=== PATIENT | female | born 1940 | race Caucasian/White ===

== ENCOUNTER 2017-04-04 02:50 | Emergency (ER) | payer MEDICARE ==
[2017-04-04 03:26] VITALS: BP 141/65; PULSE 77; RESP 18; TEMP 97
[2017-04-04 04:48] LABS: Aty Lym Flag Slight; CH 30.3; CHCM 34.3; HCT 42.1 % (34.0-46.0); HDW 2.53; HGB 14.3 gm/dL (11.4-16.0); MCH 30.1 pg (25.0-35.0); MCHC 33.9 g/dL (31.0-37.0); MCV 88.6 fL (80.0-100.0); Mean Platelet Volume 7.8; RBC 4.75 m/uL (3.80-5.40); RDW 13.1 % (11.5-15.5); WBC 12.4 k/uL (3.8-10.6); WBC (Perox) 11.99
[2017-04-04 04:51] LABS: Appearance,Urine Cloudy (Clear); Bacteria,Urine Rare /hpf; Bilirubin,Urine Negative (Negative); Glucose,Urine (UA) Negative (Negative); Ketones,Urine Negative (Negative); Leukocyte Esterase,Urine Large (Negative); Mucus,Urine Rare /hpf; Nitrite,Urine Negative (Negative); PH, Urine 5.5 (5.0-8.0); Particle Count 4088; Protein,Urine Negative (Negative); RBC,Urine 7 /hpf (0-5); Squamous Epithelial Cell,Urine 17 /hpf (0-4); UA Billing (MACRO vs. MICRO) MICRO; Urobilinogen,Urine <2.0 mg/dL (<2.0); WBC,Urine 32 /hpf (0-5)
[2017-04-04 05:05] LABS: Calcium 10.2 mg/dL (8.4-10.2); Potassium 4.1 mmol/L (3.5-5.1)
[2017-04-04] MEDS ORDERED: SULFAMETHOX-TMP 800-160MG 1 EACH TAB PO STA (07:10)
--- NOTE | 2017-04-04 07:11 | ED ---
General Adult HPI - General Chief complaint: Urogenital Stated complaint: unable to urinate Time Seen by Provider: 04/04/17 04:07 Source: patient Mode of arrival: ambulatory Limitations: no limitations - Related Data Previous Rx's Medication Instructions Recorded Sulfamethox-Tmp 800-160Mg [Bactrim 1 each PO Q12HR #14 tab 04/04/17 Ds] Allergies Allergy/AdvReac Type Severity Reaction Status Date / Time Penicillins Allergy Unknown Verified 04/04/17 03:22 Review of Systems ROS Statement: Those systems with pertinent positive or pertinent negative responses have been documented in the HPI. ROS Other: All systems not noted in ROS Statement are negative. Past Medical History Past Medical History: Hypertension History of Any Multi-Drug Resistant Organisms: None Reported Past Surgical History: Hysterectomy Past Psychological History: No Psychological Hx Reported Smoking Status: Never smoker Past Alcohol Use History: None Reported Past Drug Use History: None Reported General Exam Limitations: no limitations Course Vital Signs 04/04/17 03:23 Temperature 97.0 F L Pulse Rate 77 Respiratory 18 Rate Blood Pressure 141/65 O2 Sat by Pulse 96 Oximetry Medical Decision Making - Lab Data Result diagrams: 04/04/17 04:30 04/04/17 04:30 Lab Results 04/04/17 04/04/17 04/04/17 Range/Units 04:30 04:30 04:30 WBC 12.4 H (3.8-10.6) k/uL RBC 4.75 (3.80-5.40) m/uL Hgb 14.3 (11.4-16.0) gm/dL Hct 42.1 (34.0-46.0) % MCV 88.6 (80.0-100.0) fL MCH 30.1 (25.0-35.0) pg MCHC 33.9 (31.0-37.0) g/dL RDW 13.1 (11.5-15.5) % Plt Count 250 (150-450) k/uL Sodium 132 L (137-145) mmol/L Potassium 4.1 (3.5-5.1) mmol/L Chloride 98 (98-107) mmol/L Carbon Dioxide 19 L (22-30) mmol/L Anion Gap 15 mmol/L BUN 28 H (7-17) mg/dL Creatinine 2.10 H (0.52-1.04) mg/dL Est GFR (MDRD) Af Amer 28 (>60 ml/min/1.73 sqM) Est GFR (MDRD) Non-Af 23 (>60 ml/min/1.73 sqM) Glucose 111 H (74-99) mg/dL Calcium 10.2 (8.4-10.2) mg/dL Urine Color Yellow Urine Appearance Cloudy H (Clear) Urine pH 5.5 (5.0-8.0) Ur Specific [place] 1.010 (1.001-1.035) Urine Protein Negative (Negative) Urine Glucose (UA) Negative (Negative) Urine Ketones Negative (Negative) Urine Blood Small H (Negative) Urine Nitrite Negative (Negative) Urine Bilirubin Negative (Negative) Urine Urobilinogen <2.0 (<2.0) mg/dL Ur Leukocyte Esterase Large H (Negative) Urine RBC 7 H (0-5) /hpf Urine WBC 32 H (0-5) /hpf Ur Squamous Epith Cells 17 H (0-4) /hpf Urine Bacteria Rare H (None) /hpf Urine Mucus Rare H (None) /hpf Disposition Clinical Impression: Urinary tract infection Disposition: Left Against Medical Advice Condition: Undetermined Instructions: Urinary Tract Infection in Women (ED) Prescriptions: Sulfamethox-Tmp 800-160Mg [Bactrim Ds] 1 each PO Q12HR #14 tab Referrals: Gabriel Blackwell MD [Primary Care Provider] - 1-2 days
[2017-04-04 08:27] LABS: Add Differential Manual Differential
[2017-04-04 08:30] LABS: Nucleated Red Blood Cells 0 /100 WBC (0-0); Total Cells Counted 200
[2017-04-04 08:32] LABS: RBC Morphology Normal
== END 2017-04-04 07:24 | disposition left against medical advice (07) ==
LOC: EC 02:50
DX: N39.0 Urinary tract infection, site not specified (principal); Z88.0 Allergy status to penicillin
CPT/HCPCS: 36415; 80048; 81001; 85025; 87086; 99283

== ENCOUNTER → 2018-07-01 | Outpatient (CLI) | payer MEDICARE ==
--- NOTE | 2018-07-02 07:33 | US ---
EXAMINATION TYPE: US kidneys/renal and bladder DATE OF EXAM: 07/01/2018 COMPARISON: NONE CLINICAL HISTORY: N28.9 DISORDER OF KIDNEY AND URETER. Frequent UTI's EXAM MEASUREMENTS: Right Kidney: 9.0 x 4.4 x 4.6 cm Left Kidney: 9.1 x 4.0 x 4.0 cm Technical limitations due to large amount of overlying bowel content Right Kidney: visualized portions show no evidence of hydronephrosis . Mild cortical renal thinning. Left Kidney: Solitary hyperechoic linear calculus upper pole = 0.5cm. Mild cortical renal thinning. Bladder: wnl Bilateral Jets seen: no There is no evidence for hydronephrosis at this point in time. No masses are identified. The urinar y bladder is anechoic. Bilateral ureteral jets are seen. IMPRESSION: 1. Solitary nonobstructing 5 mm left upper pole renal calculus. 2. No hydronephrosis. 3. Slight cortical renal thinning suggests mild medical renal disease.
== END | disposition home or self-care (01) ==
LOC: RADUSWWP 15:45
PROVIDERS: ATTEND Family Medicine
DX: N20.0 Calculus of kidney (principal)
CPT/HCPCS: 76770

== ENCOUNTER → 2019-11-03 | Outpatient (CLI) | payer MEDICARE ==
--- NOTE | 2019-11-03 14:14 | US ---
EXAMINATION TYPE: US kidneys/renal and bladder DATE OF EXAM: 11/03/2019 COMPARISON: Renal ultrasound July 01, 2010 CLINICAL HISTORY: N20.2 CALCULUS OF KIDNEY. Pain hx of stones. EXAM MEASUREMENTS: Right Kidney: 9.0 x 4.8 x 4.2 cm Left Kidney: 9.2 x 3.8 x 3.4 cm Right Kidney: No hydronephrosis or masses seen Left Kidney: 6 mm echogenic area seen upper pole. Bladder: Poorly distended Bilateral Jets seen: No There is no evidence for hydronephrosis at this point in time. No masses are identified. The urinary bladder is anechoic. Cortical thinning bilaterally redemonstrated. Stable appearance of echogenic fo cus upper to midpole left kidney reflect nonobstructing 5 to 6 mm calculus. Bilateral ureteral jets are seen. IMPRESSION: Stable nonobstructing 5 to 6 mm left renal calculus. No new hydronephrosis.
== END | disposition home or self-care (01) ==
LOC: RADUSWWP 13:15
PROVIDERS: ATTEND Family Medicine
DX: N20.0 Calculus of kidney (principal)
CPT/HCPCS: 76770

== ENCOUNTER 2019-11-05 18:49 | Emergency (ER) | payer MEDICARE ==
[2019-11-05 18:57] VITALS: RESP 20
[2019-11-05] MEDS ORDERED: SODIUM CHLORIDE 0.9% 500 ML 500 ML IV STA (19:08)
[2019-11-05] MEDS ORDERED: KETOROLAC 30 MG/ML 1 ML VIAL IVP STA (19:08)
--- NOTE | 2019-11-05 19:14 | ED ---
General Adult HPI - General Chief complaint: Back Pain/Injury Stated complaint: Back pain Time Seen by Provider: 11/05/19 18:58 Source: patient Mode of arrival: ambulatory Limitations: no limitations - History of Present Illness Initial comments: 79-year-old female patient presents to the emergency department today for evaluation of low back pain and left lower quadrant pain. Patient states symptoms started on Friday and have been worsening since. States 2 days ago she did have an ultrasound ordered by her primary care physician which showed a oyster shucker tamia stable left kidney stone. No evidence of hydronephrosis. Patient did report dysuria and urinary frequency. States she has had intermittent nausea. Denies any vomiting. Denies diarrhea but states that she has had no bowel movement for the last 2 days. She denies fever or chills. She has had hysterectomy in the past but no other abdominal surgeries. Denies any dizziness or weakness. Patient denies any recent rash, shortness breath, chest pain, numbness, tingling, headache, visual changes, or any other complaints. - Related Data Previous Rx's Medication Instructions Recorded Sulfamethox-Tmp 800-160Mg [Bactrim 1 each PO Q12HR #14 tab 04/04/17 Ds] Allergies Allergy/AdvReac Type Severity Reaction Status Date / Time Penicillins Allergy Unknown Verified 11/05/19 18:56 Review of Systems ROS Statement: Those systems with pertinent positive or pertinent negative responses have been documented in the HPI. ROS Other: All systems not noted in ROS Statement are negative. Past Medical History Past Medical History: Hypertension History of Any Multi-Drug Resistant Organisms: None Reported Past Surgical History: Hysterectomy Past Psychological History: No Psychological Hx Reported Smoking Status: Never smoker Past Alcohol Use History: None Reported Past Drug Use History: None Reported General Exam Limitations: no limitations General appearance: alert, in no apparent distress, other (This is a well- developed, well-nourished adult female patient in no acute distress. Vital signs upon presentation are temperature 98.1F, pulse 83, respirations 20, blood pressure 160/83, pulse ox 96% on room air.) Eye exam: Present: normal appearance, PERRL, EOMI. Absent: scleral icterus, conjunctival injection, periorbital swelling ENT exam: Present: normal exam, normal oropharynx, mucous membranes moist Respiratory exam: Present: normal lung sounds bilaterally. Absent: respiratory distress, wheezes, rales, rhonchi, stridor Cardiovascular Exam: Present: regular rate, normal rhythm, normal heart sounds. Absent: systolic murmur, diastolic murmur, rubs, gallop, clicks GI/Abdominal exam: Present: soft, tenderness (Left lower quadrant tenderness), normal bowel sounds. Absent: distended, guarding, rebound, rigid Extremities exam: Present: normal inspection, full ROM, normal capillary refill, other (Skin to the lower extremities is pink, warm, dry. Cap refills less than 3 seconds. Pedal pulses 2+ and equal bilaterally.). Absent: tenderness, pedal edema, joint swelling, calf tenderness Back exam: Present: normal inspection. Absent: CVA tenderness (R), CVA tenderness (L), vertebral tenderness Neurological exam: Present: alert, oriented X3, CN II-XII intact Psychiatric exam: Present: normal affect, normal mood Skin exam: Present: warm, dry, intact, normal color. Absent: rash Course Vital Signs 11/05/19 11/05/19 18:53 20:53 Temperature 98.1 F 97.9 F Pulse Rate 83 80 Respiratory 20 20 Rate Blood Pressure 160/83 175/83 O2 Sat by Pulse 96 97 Oximetry Medical Decision Making - Medical Decision Making 79-year-old female patient presents to the emergency department today for evaluation of left lower quadrant abdominal pain and low back pain. Physical examination reveals left lower quadrant tenderness. No CVA tenderness. She is afebrile several vital signs. Labs reviewed and revealed an elevated white blood cell count at 16,000, most likely reactive. Urinalysis did show hematuria. No evidence for infection. CT abdomen and pelvis was obtained and showed evidence for diverticulosis without evidence for diverticulitis. No other abnormalities were found. Upon reevaluation she does report improvement of symptoms. She'll be discharged to follow-up with her primary care physician for recheck in 1-2 days. Return parameters were discussed in detail. She verbalizes understanding and agrees with this plan. - Lab Data Result diagrams: 11/05/19 19:20 11/05/19 19:20 Lab Results 11/05/19 11/05/19 11/05/19 Range/Units :20 19:20 19:20 WBC 16.0 H (3.8-10.6) k/uL RBC 4.62 (3.80-5.40) m/uL Hgb 13.8 (11.4-16.0) gm/dL Hct 39.4 (34.0-46.0) % MCV 85.3 (80.0-100.0) fL MCH 29.9 (25.0-35.0) pg MCHC 35.0 (31.0-37.0) g/dL RDW 12.7 (11.5-15.5) % Plt Count 360 (150-450) k/uL Neutrophils % (Manual) 78 % Lymphocytes % (Manual) 17 % Monocytes % (Manual) 5 % Neutrophils # (Manual) 12.48 H (1.3-7.7) k/uL Lymphocytes # (Manual) 2.72 (1.0-4.8) k/uL Monocytes # (Manual) 0.80 (0-1.0) k/uL Nucleated RBCs 0 (0-0) /100 WBC Manual Slide Review Performed RBC Morphology Normal Sodium 131 L (137-145) mmol/L Potassium 3.8 (3.5-5.1) mmol/L Chloride 90 L (98-107) mmol/L Carbon Dioxide 27 (22-30) mmol/L Anion Gap 14 mmol/L BUN 17 (7-17) mg/dL Creatinine 1.21 H (0.52-1.04) mg/dL Est GFR (CKD-EPI)AfAm 49 (>60 ml/min/1.73 sqM) Est GFR (CKD-EPI)NonAf 42 (>60 ml/min/1.73 sqM) Glucose 111 H (74-99) mg/dL Plasma Lactic Acid [place] 1.7 (0.7-2.0) mmol/L Calcium 9.9 (8.4-10.2) mg/dL Total Bilirubin 0.6 (0.2-1.3) mg/dL AST 24 (14-36) U/L ALT 16 (4-34) U/L Alkaline Phosphatase 72 (38-126) U/L Total Protein 7.5 (6.3-8.2) g/dL Albumin 4.4 (3.5-5.0) g/dL Amylase 73 (30-110) U/L Lipase 253 (23-300) U/L Urine Color Urine Appearance (Clear) Urine pH (5.0-8.0) Ur Specific [place] (1.001-1.035) Urine Protein (Negative) Urine Glucose (UA) (Negative) Urine Ketones (Negative) Urine Blood (Negative) Urine Nitrite (Negative) Urine Bilirubin (Negative) Urine Urobilinogen (<2.0) mg/dL Ur Leukocyte Esterase (Negative) Urine RBC (0-5) /hpf Urine WBC (0-5) /hpf Ur Squamous Epith Cells (0-4) /hpf Urine Bacteria (None) /hpf Hyaline Casts (0-2) /lpf Urine Mucus (None) /hpf 11/05/ Range/Units 19:20 WBC (3.8-10.6) k/uL RBC (3.80-5.40) m/uL Hgb (11.4-16.0) gm/dL Hct (34.0-46.0) % MCV (80.0-100.0) fL MCH (25.0-35.0) pg MCHC (31.0-37.0) g/dL RDW (11.5-15.5) % Plt Count (150-450) k/uL Neutrophils % (Manual) % Lymphocytes % (Manual) % Monocytes % (Manual) % Neutrophils # (Manual) (1.3-7.7) k/uL Lymphocytes # (Manual) (1.0-4.8) k/uL Monocytes # (Manual) (0-1.0) k/uL Nucleated RBCs (0-0) /100 WBC Manual Slide Review RBC Morphology Sodium (137-145) mmol/L Potassium (3.5-5.1) mmol/L Chloride (98-107) mmol/L Carbon Dioxide (22-30) mmol/L Anion Gap mmol/L BUN (7-17) mg/dL Creatinine (0.52-1.04) mg/dL Est GFR (CKD-EPI)AfAm (>60 ml/min/1.73 sqM) Est GFR (CKD-EPI)NonAf (>60 ml/min/1.73 sqM) Glucose (74-99) mg/dL Plasma Lactic Acid [place] (0.7-2.0) mmol/L Calcium (8.4-10.2) mg/dL Total Bilirubin (0.2-1.3) mg/dL AST (14-36) U/L ALT (4-34) U/L Alkaline Phosphatase (38-126) U/L Total Protein (6.3-8.2) g/dL Albumin (3.5-5.0) g/dL Amylase (30-110) U/L Lipase (23-300) U/L Urine Color Yellow Urine Appearance Cloudy H (Clear) Urine pH 6.5 (5.0-8.0) Ur Specific [place] 1.016 (1.001-1.035) Urine Protein Trace H (Negative) Urine Glucose (UA) Negative (Negative) Urine Ketones 1+ H (Negative) Urine Blood Moderate H (Negative) Urine Nitrite Negative (Negative) Urine Bilirubin Negative (Negative) Urine Urobilinogen <2.0 (<2.0) mg/dL Ur Leukocyte Esterase Negative (Negative) Urine RBC 22 H (0-5) /hpf Urine WBC 2 (0-5) /hpf Ur Squamous Epith Cells 6 H (0-4) /hpf Urine Bacteria Rare H (None) /hpf Hyaline Casts 1 (0-2) /lpf Urine Mucus Rare H (None) /hpf - Radiology Data Radiology results: report reviewed, image reviewed CT abdomen and pelvis without contrast was obtained. Report was reviewed in its entirety. Impression by Dr. Blackmon shows sigmoid diverticulosis without diverticulitis. Exam limited due to motion artifact on the proximal duodenum. Duodenal wall thickening or duodenitis is not excluded. This is more likely artifact since patient's symptoms are in the left lower quadrant. D iverticulosis has progressed compared to old computed tomography scan. Disposition Clinical Impression: Abdominal pain, Left renal stone Disposition: HOME SELF-CARE Condition: Good Instructions (If sedation given, give patient instructions): Abdominal Pain (ED) Additional Instructions: Increase fluids. Take Tylenol for pain control. Follow-up with your primary care physician for recheck in 1-2 days. Return to emergency department immediately for any new, worsening, or concerning symptoms. Is patient prescribed a controlled substance at d/c from ED?: No Referrals: Gabriel Blackwell MD [Primary Care Provider] - 1-2 days Time of Disposition: 21:25
[2019-11-05 19:45] LABS: Appearance,Urine Cloudy (Clear); Bacteria,Urine Rare /hpf; Bilirubin,Urine Negative (Negative); Blood,Urine Moderate (Negative); Color,Urine Yellow; Glucose,Urine (UA) Negative (Negative); Hyaline Casts,Urine 1 /lpf (0-2); Ketones,Urine 1+ (Negative); Leukocyte Esterase,Urine Negative (Negative); Mucus,Urine Rare /hpf; Nitrite,Urine Negative (Negative); PH, Urine 6.5 (5.0-8.0); Protein,Urine Trace (Negative); RBC,Urine 22 /hpf (0-5); Specific Gravity,Urine 1.016 (1.001-1.035); Squamous Epithelial Cell,Urine 6 /hpf (0-4); Urobilinogen,Urine <2.0 mg/dL (<2.0); WBC,Urine 2 /hpf (0-5)
[2019-11-05 19:54] LABS: HCT 39.4 % (34.0-46.0); HGB 13.8 gm/dL (11.4-16.0); MCH 29.9 pg (25.0-35.0); MCV 85.3 fL (80.0-100.0); Mean Platelet Volume 7.9; Platelet Count 360 k/uL (150-450); RBC 4.62 m/uL (3.80-5.40); RDW 12.7 % (11.5-15.5)
[2019-11-05 20:01] LABS: Albumin 4.4 g/dL (3.5-5.0); Calcium 9.9 mg/dL (8.4-10.2); Potassium 3.8 mmol/L (3.5-5.1); Total Bilirubin 0.6 mg/dL (0.2-1.3); Total Protein 7.5 g/dL (6.3-8.2)
[2019-11-05 20:17] LABS: Lymphocytes # (M) 2.72 k/uL (1.0-4.8); Neutrophils # (M) 12.48 k/uL (1.3-7.7); Neutrophils % (M) 78 %; Nucleated Red Blood Cells 0 /100 WBC (0-0); Total Cells Counted 100
--- NOTE | 2019-11-05 20:40 | CT ---
EXAMINATION TYPE: CT abdomen pelvis wo con DATE OF EXAM: 11/05/2019 COMPARISON: 10/27/2010 HISTORY: flank pain CT DLP: 910.6 mGycm Automated exposure control for dose reduction was used. There is calcified granuloma in the left lower lobe. There is no pleural effusion. Heart size is norm al. There is no pericardial effusion. Spleen is intact. Liver shows no focal defect. Stomach is diste nded with fluid. Exam limited slightly by motion. Gallbladder is not dilated. The bile ducts are not dilated. There is no evidence of pancreatic mass. There is no adrenal mass. Kidneys have normal size. There is no hydronephrosis. Ureters are not dilat ed. There is no retroperitoneal adenopathy. Bladder distends smoothly. There is no inguinal hernia. T here is no free fluid in the pelvis. There are numerous diverticula in the sigmoid colon. There is no sign of diverticulitis. There is no mesenteric edema. There is no ascites or free air. There is no sign of a bowel obstructio n. There is lumbar levoscoliosis. There are spondylotic changes throughout the lumbar spine. There is no compression fracture. Bony pelvis is intact. IMPRESSION: Sigmoid diverticulosis without diverticulitis. Exam limited due to motion artifact around the proxima l duodenum. Duodenal wall thickening or duodenitis is not excluded. This is more likely artifact sinc e patient's symptoms are in the left lower quadrant. Diverticulosis has progressed compared to old CT scan.
[2019-11-05 20:54] VITALS: BP 175/83; PULSE 80; TEMP 97.9
== END 2019-11-05 21:33 | disposition home or self-care (01) ==
LOC: EC 18:49
DX: N20.0 Calculus of kidney (principal); K57.30 Diverticulosis of large intestine without perforation or abscess without bleeding; D72.829 Elevated white blood cell count, unspecified; I10 Essential (primary) hypertension; Z88.0 Allergy status to penicillin
CPT/HCPCS: 36415; 80053; 82150; 83605; 83690; 85025; 81001; 74176; 99284; 96374; 96361; J1885

== ENCOUNTER 2019-11-06 17:24 | Emergency (ER) | payer MEDICARE ==
[2019-11-06 18:32] VITALS: RESP 18
[2019-11-06] MEDS ORDERED: SODIUM CHLORIDE 0.9% 500 ML 500 ML IV STA (18:34)
[2019-11-06] MEDS ORDERED: KETOROLAC 30 MG/ML 1 ML VIAL IVP STA (18:35)
--- NOTE | 2019-11-06 18:37 | ED ---
General Adult HPI - General Chief complaint: Abdominal Pain Stated complaint: Abdominal Pain Time Seen by Provider: 11/06/19 17:31 Source: patient, RN notes reviewed Mode of arrival: ambulatory Limitations: physical limitation - History of Present Illness Initial comments: 79-year-old female with a past medical history of hypertension presents to the emergency department for a chief complaint of abdominal pain. Patient states that she is having suprapubic and left lower quadrant abdominal pain. States this has been constant since Friday. States her last bowel movement was on Friday. States his pain is a 9 out of 10 in nature. States it is a constant pain. Denies nausea vomiting. States she did try MiraLAX but could not produce a bowel movement. Patient has no other complaints at this time including shortness of breath, chest pain, nausea or vomiting, headache, or visual changes. - Related Data Previous Rx's Medication Instructions Recorded Sulfamethox-Tmp 800-160Mg [Bactrim 1 each PO Q12HR #14 tab 04/04/17 Ds] Metoclopramide [Reglan] 10 mg PO TID 5 Days #15 tab 11/06/19 Allergies Allergy/AdvReac Type Severity Reaction Status Date / Time Penicillins Allergy Unknown Verified 11/06/19 17:29 Review of Systems ROS Statement: Those systems with pertinent positive or pertinent negative responses have been documented in the HPI. ROS Other: All systems not noted in ROS Statement are negative. Past Medical History Past Medical History: Hypertension History of Any Multi-Drug Resistant Organisms: None Reported Past Surgical History: Hysterectomy Past Psychological History: No Psychological Hx Reported Smoking Status: Never smoker Past Alcohol Use History: None Reported Past Drug Use History: None Reported General Exam Limitations: physical limitation General appearance: alert, in no apparent distress Head exam: Present: atraumatic, normocephalic, normal inspection Eye exam: Present: normal appearance, PERRL, EOMI. Absent: scleral icterus, conjunctival injection, periorbital swelling ENT exam: Present: normal exam, mucous membranes moist Neck exam: Present: normal inspection. Absent: tenderness, meningismus, lymphadenopathy Respiratory exam: Present: normal lung sounds bilaterally. Absent: respiratory distress, wheezes, rales, rhonchi, stridor Cardiovascular Exam: Present: regular rate, normal rhythm, normal heart sounds. Absent: systolic murmur, diastolic murmur, rubs, gallop, clicks GI/Abdominal exam: Present: soft, tenderness (Tenderness of the suprapubic and left lower quadrant without guarding or rebound.), normal bowel sounds. Absent: distended, guarding, rebound, rigid Neurological exam: Present: alert Course Vital Signs 11/06/19 11/06/19 17:26 18:32 Temperature 98.5 F Pulse Rate 83 76 Respiratory 20 18 Rate Blood Pressure 194/78 151/73 O2 Sat by Pulse 96 97 Oximetry Medical Decision Making - Medical Decision Making 79-year-old female presents to the emergency department for a chief complaint of left lower quadrant pain. This has been persistent for 5 days. Patient has not had a bowel movement for about 4 days. Vital signs are stable. Patient is afebrile. CBC shows a white blood cell count of 13.8 which is an improvement from white blood cell count of 16 yesterday. CMP does show evidence of hyponatremia with a sodium of 126. Patient has a history of hyponatremia. She was given a bolus of saline. There is moderate blood in the urine which patient will follow-up about. X-ray demonstrates a correlate for enteritis with air- fluid levels without bowel distention. This was reviewed by myself and Dr. Barrow. We did speak with Dr. Qureshi about possible admission for patient given hyponatremia and this pain as she has had a negative computed tomography scan in the past 2 days. However at this time he recommended outpatient treat ment with Gatorade and a repeat lab by primary care. Patient will be given Reglan to help with ileus. She'll return here if she has any worsening symptoms. - Lab Data Result diagrams: 11/06/19 18:19 11/06/19 18:19 Lab Results 11/06/19 11/06/19 11/06/19 Range/Units 18:19 18:19 18:38 WBC 13.8 H (3.8-10.6) k/uL RBC 4.01 (3.80-5.40) m/uL Hgb 11.9 (11.4-16.0) gm/dL Hct 34.0 (34.0-46.0) % MCV 84.8 (80.0-100.0) fL MCH 29.8 (25.0-35.0) pg MCHC 35.1 (31.0-37.0) g/dL RDW 12.5 (11.5-15.5) % Plt Count 293 (150-450) k/uL Neutrophils % (Manual) 87 % Lymphocytes % (Manual) 8 % Monocytes % (Manual) 5 % Neutrophils # (Manual) 12.01 H (1.3-7.7) k/uL Lymphocytes # (Manual) 1.10 (1.0-4.8) k/uL Monocytes # (Manual) 0.69 (0-1.0) k/uL Nucleated RBCs 0 (0-0) /100 WBC Manual Slide Review Performed RBC Morphology Normal Sodium 126 L (137-145) mmol/L Potassium 3.6 (3.5-5.1) mmol/L Chloride 90 L (98-107) mmol/L Carbon Dioxide 24 (22-30) mmol/L Anion Gap 12 mmol/L BUN 15 (7-17) mg/dL Creatinine 0.96 (0.52-1.04) mg/dL Est GFR (CKD-EPI)AfAm 64 (>60 ml/min/1.73 sqM) Est GFR (CKD-EPI)NonAf 56 (>60 ml/min/1.73 sqM) Glucose 128 H (74-99) mg/dL Calcium 9.3 (8.4-10.2) mg/dL Total Bilirubin 0.5 (0.2-1.3) mg/dL AST 21 (14-36) U/L ALT 13 (4-34) U/L Alkaline Phosphatase 60 (38-126) U/L Total Protein 6.4 (6.3-8.2) g/dL Albumin 3.6 (3.5-5.0) g/dL Amylase 41 (30-110) U/L Lipase 169 (23-300) U/L Urine Color Yellow Urine Appearance Clear (Clear) Urine pH 6.0 (5.0-8.0) Ur Specific [place] 1.011 (1.001-1.035) Urine Protein Negative (Negative) Urine Glucose (UA) Negative (Negative) Urine Ketones Negative (Negative) Urine Blood Moderate H (Negative) Urine Nitrite Negative (Negative) Urine Bilirubin Negative (Negative) Urine Urobilinogen <2.0 (<2.0) mg/dL Ur Leukocyte Esterase Negative (Negative) Urine RBC 28 H (0-5) /hpf Urine WBC 1 (0-5) /hpf Ur Squamous Epith Cells 5 H (0-4) /hpf Urine Bacteria Rare H (None) /hpf Urine Mucus Rare H (None) /hpf Disposition Clinical Impression: Ileus, Abdominal pain, Hyponatremia Disposition: HOME SELF-CARE Condition: Good Instructions (If sedation given, give patient instructions): Abdominal Pain (ED) Additional Instructions: Please follow up with primary care on Friday to schedule repeat blood work for low sodium. In the meantime drink plenty of Gatorade. Take Reglan as directed. Return to the ER if you have any worsening symptoms. Prescriptions: Metoclopramide [Reglan] 10 mg PO TID 5 Days #15 tab Is patient prescribed a controlled substance at d/c from ED?: No Referrals: Gabriel Blackwell MD [Primary Care Provider] - 1-2 days Time of Disposition: 20:36
[2019-11-06 19:05] LABS: HGB 11.9 gm/dL (11.4-16.0); MCH 29.8 pg (25.0-35.0); MCHC 35.1 g/dL (31.0-37.0); MCV 84.8 fL (80.0-100.0); Mean Platelet Volume 7.7; Platelet Count 293 k/uL (150-450); RBC 4.01 m/uL (3.80-5.40); RDW 12.5 % (11.5-15.5); WBC 13.8 k/uL (3.8-10.6)
[2019-11-06 19:06] LABS: Albumin 3.6 g/dL (3.5-5.0); Calcium 9.3 mg/dL (8.4-10.2); Potassium 3.6 mmol/L (3.5-5.1); Total Bilirubin 0.5 mg/dL (0.2-1.3); Total Protein 6.4 g/dL (6.3-8.2)
[2019-11-06 19:13] LABS: Appearance,Urine Clear (Clear); Bacteria,Urine Rare /hpf; Bilirubin,Urine Negative (Negative); Blood,Urine Moderate (Negative); Color,Urine Yellow; Glucose,Urine (UA) Negative (Negative); Ketones,Urine Negative (Negative); Leukocyte Esterase,Urine Negative (Negative); Mucus,Urine Rare /hpf; Nitrite,Urine Negative (Negative); Protein,Urine Negative (Negative); RBC,Urine 28 /hpf (0-5); Specific Gravity,Urine 1.011 (1.001-1.035); Squamous Epithelial Cell,Urine 5 /hpf (0-4); Urobilinogen,Urine <2.0 mg/dL (<2.0); WBC,Urine 1 /hpf (0-5)
[2019-11-06 19:16] LABS: Monocytes # (M) 0.69 k/uL (0-1.0); Neutrophils # (M) 12.01 k/uL (1.3-7.7); Neutrophils % (M) 87 %; Nucleated Red Blood Cells 0 /100 WBC (0-0); Total Cells Counted 100
--- NOTE | 2019-11-06 19:35 | XR ---
KUB HISTORY: Abdominal pain, constipation Frontal KUB submitted on [address] scan dated 11/05/2019 There are air-fluid levels without bowel distention. No evident pneumoperitoneum. Lung bases are yvrose r. There is a spinal curvature. Degenerative disc changes are present in the visualized spine. No pat hologic calcification. IMPRESSION: Correlate for enteritis.
[2019-11-06] MEDS ORDERED: METOCLOPRAMIDE 5 MG/ML 2 ML VIAL IVP STA (20:35)
[2019-11-06 20:57] VITALS: BP 152/68; PULSE 74; TEMP 98.2
== END 2019-11-06 21:06 | disposition home or self-care (01) ==
LOC: EC 17:24
DX: K56.7 Ileus, unspecified (principal); E87.1 Hypo-osmolality and hyponatremia; R31.9 Hematuria, unspecified; Z88.0 Allergy status to penicillin
CPT/HCPCS: 36415; 80053; 82150; 83690; 85025; 81001; 74018; 99284; 96374; 96375; 96361 ×2; J2765; J1885

== ENCOUNTER 2020-03-26 06:26 | Inpatient (IN) | payer MEDICARE ==
[2020-03-26 06:50] LABS: Glucose,Whole Blood 123 mg/dL (75-99)
[2020-03-26] MEDS ORDERED: SODIUM CHLORIDE 0.9% 500 ML 500 ML IV STA (06:55)
[2020-03-26] MEDS ORDERED: ONDANSETRON 4 MG/2 ML VIAL IVP STA (06:55)
[2020-03-26] MEDS ORDERED: KETOROLAC 30 MG/ML 1 ML VIAL IVP STA (06:55)
--- NOTE | 2020-03-26 06:58 | ED ---
Abdominal Pain HPI - General Chief Complaint: Abdominal Pain Stated Complaint: abd pain Time Seen by Provider: 03/26/20 06:39 Source: patient, RN notes reviewed Mode of arrival: ambulatory Limitations: no limitations - History of Present Illness Initial Comments: This is a 80-year-old female presents emergency Department chief complaint of abdominal pain. Patient states started a few days ago. She does have a history of diverticulitis states that the pain somewhat reminds her of this. She states she had normal bowel movement within last 24 hours denies any melena or hematochezia. Patient states she's had some mild decreased urine output no dys uria. Patient states she's had a prior hysterectomy and appendectomy. She did have some nausea that comes and goes no vomiting no chest pain or shortness of breath. Patient did take one acetaminophen with no relief of her symptoms. - Related Data Previous Rx's Medication Instructions Recorded Sulfamethox-Tmp 800-160Mg [Bactrim 1 each PO Q12HR #14 tab 04/04/17 Ds] Metoclopramide [Reglan] 10 mg PO TID 5 Days #15 tab 11/06/19 Allergies Allergy/AdvReac Type Severity Reaction Status Date / Time Penicillins Allergy Unknown Verified 03/26/20 06:37 Review of Systems ROS Statement: Those systems with pertinent positive or pertinent negative responses have been documented in the HPI. ROS Other: All systems not noted in ROS Statement are negative. Past Medical History Past Medical History: Hypertension Additional Past Medical History / Comment(s): Diverticulitis History of Any Multi-Drug Resistant Organisms: None Reported Past Surgical History: Hysterectomy Past Psychological History: No Psychological Hx Reported Smoking Status: Never smoker Past Alcohol Use History: None Reported Past Drug Use History: None Reported General Exam Limitations: no limitations General appearance: alert, in no apparent distress Head exam: Present: atraumatic, normocephalic, normal inspection Eye exam: Present: normal appearance, PERRL, EOMI. Absent: scleral icterus, conjunctival injection, periorbital swelling ENT exam: Present: normal exam, normal oropharynx, mucous membranes moist Neck exam: Present: normal inspection, full ROM. Absent: tenderness, meningismus, lymphadenopathy Respiratory exam: Present: normal lung sounds bilaterally. Absent: respiratory distress, wheezes, rales, rhonchi, stridor Cardiovascular Exam: Present: regular rate, normal rhythm, normal heart sounds. Absent: systolic murmur, diastolic murmur, rubs, gallop, clicks GI/Abdominal exam: Present: soft, tenderness (Mild right lower quadrant, suprapubic tenderness), normal bowel sounds. Absent: distended, guarding, rebound, rigid Back exam: Absent: CVA tenderness (R), CVA tenderness (L) Neurological exam: Present: alert, oriented X3 Skin exam: Present: warm, dry, intact, normal color. Absent: rash Course Vital Signs 03/26/20 06:32 Temperature 97.9 F Pulse Rate 99 Respiratory 18 Rate Blood Pressure 127/74 O2 Sat by Pulse 95 Oximetry Medical Decision Making - Medical Decision Making 80-year-old female presented for abdominal pain. Labs, CT and urinalysis were obtained. Patient has mild leukocytosis mild dehydration. Patient was given IV fluid bolus, maintenance fluids. Patient found to have duodenitis with possible gastric outlet obstruction. NG was placed at this time. Patient will be admitted to medicine with consult surgery. - Lab Data Result diagrams: 03/26/20 06:49 03/26/20 06:49 Lab Results 03/26/20 03/26/20 03/26/20 Range/Units 06:48 06:49 06:49 WBC 16.9 H (3.8-10.6) k/uL RBC 4.75 (3.80-5.40) m/uL Hgb 13.0 (11.4-16.0) gm/dL Hct 40.0 (34.0-46.0) % MCV 84.2 (80.0-100.0) fL MCH 27.4 (25.0-35.0) pg MCHC 32.6 (31.0-37.0) g/dL RDW 14.1 (11.5-15.5) % Plt Count 366 (150-450) k/uL Neutrophils % 80 % Lymphocytes % 9 % Monocytes % 6 % Eosinophils % 0 % Basophils % 0 % Neutrophils # 13.5 H (1.3-7.7) k/uL Lymphocytes # 1.6 (1.0-4.8) k/uL Monocytes # 1.1 H (0-1.0) k/uL Eosinophils # 0.1 (0-0.7) k/uL Basophils # 0.0 (0-0.2) k/uL Sodium 134 L (137-145) mmol/L Potassium 3.5 (3.5-5.1) mmol/L Chloride 94 L (98-107) mmol/L Carbon Dioxide 29 (22-30) mmol/L Anion Gap 11 mmol/L BUN 22 H (7-17) mg/dL Creatinine 1.29 H (0.52-1.04) mg/dL Est GFR (CKD-EPI)AfAm 45 (>60 ml/min/1.73 sqM) Est GFR (CKD-EPI)NonAf 39 (>60 ml/min/1.73 sqM) Glucose 131 H (74-99) mg/dL POC Glucose (mg/dL) 123 H (75-99) mg/dL POC Glu R D Engineer ID Dc Pearson Plasma Lactic Acid Christiano (0.7-2.0) mmol/L Calcium 9.3 (8.4-10.2) mg/dL Total Bilirubin 0.7 (0.2-1.3) mg/dL AST 20 (14-36) U/L ALT 15 (4-34) U/L Alkaline Phosphatase 62 (38-126) U/L Total Protein 7.0 (6.3-8.2) g/dL Albumin 3.9 (3.5-5.0) g/dL Amylase 59 (30-110) U/L Lipase 141 (23-300) U/L Urine Color Urine Appearance (Clear) Urine pH (5.0-8.0) Ur Specific [place] (1.001-1.035) Urine Protein (Negative) Urine Glucose (UA) (Negative) Urine Ketones (Negative) Urine Blood (Negative) Urine Nitrite (Negative) Urine Bilirubin (Negative) Urine Urobilinogen (<2.0) mg/dL Ur Leukocyte Esterase (Negative) Urine RBC (0-5) /hpf Urine WBC (0-5) /hpf Ur Squamous Epith Cells (0-4) /hpf Urine Bacteria (None) /hpf Urine Mucus (None) /hpf 03/26/20 03/26/20 Range/Units 06:49 07:45 WBC (3.8-10.6) k/uL RBC (3.80-5.40) m/uL Hgb (11.4-16.0) gm/dL Hct (34.0-46.0) % MCV (80.0-100.0) fL MCH (25.0-35.0) pg MCHC (31.0-37.0) g/dL RDW (11.5-15.5) % Plt Count (150-450) k/uL Neutrophils % % Lymphocytes % % Monocytes % % Eosinophils % % Basophils % % Neutrophils # (1.3-7.7) k/uL Lymphocytes # (1.0-4.8) k/uL Monocytes # (0-1.0) k/uL Eosinophils # (0-0.7) k/uL Basophils # (0-0.2) k/uL Sodium (137-145) mmol/L Potassium (3.5-5.1) mmol/L Chloride (98-107) mmol/L Carbon Dioxide (22-30) mmol/L Anion Gap mmol/L BUN (7-17) mg/dL Creatinine (0.52-1.04) mg/dL Est GFR (CKD-EPI)AfAm (>60 ml/min/1.73 sqM) Est GFR (CKD-EPI)NonAf (>60 ml/min/1.73 sqM) Glucose (74-99) mg/dL POC Glucose (mg/dL) (75-99) mg/dL POC Glu R D Engineer ID Plasma Lactic Acid Christiano 1.7 (0.7-2.0) mmol/L Calcium (8.4-10.2) mg/dL Total Bilirubin (0.2-1.3) mg/dL AST (14-36) U/L ALT (4-34) U/L Alkaline Phosphatase (38-126) U/L Total Protein (6.3-8.2) g/dL Albumin (3.5-5.0) g/dL Amylase (30-110) U/L Lipase (23-300) U/L Urine Color Yellow Urine Appearance Cloudy H (Clear) Urine pH 7.0 (5.0-8.0) Ur Specific [place] 1.018 (1.001-1.035) Urine Protein 1+ H (Negative) Urine Glucose (UA) Negative (Negative) Urine Ketones 1+ H (Negative) Urine Blood Moderate H (Negative) Urine Nitrite Negative (Negative) Urine Bilirubin Negative (Negative) Urine Urobilinogen 4.0 (<2.0) mg/dL Ur Leukocyte Esterase Negative (Negative) Urine RBC 14 H (0-5) /hpf Urine WBC 3 (0-5) /hpf Ur Squamous Epith Cells 10 H (0-4) /hpf Urine Bacteria Rare H (None) /hpf Urine Mucus Rare H (None) /hpf Disposition Clinical Impression: Duodenitis, Gastric outlet obstruction Disposition: ADMITTED IP TO THIS HOSP Condition: Fair Referrals: Gabriel Blackwell MD [Primary Care Provider] - 1-2 days
[2020-03-26 07:08] LABS: Basophils % (A) 0 %; Eosinophils # (A) 0.1 k/uL (0-0.7); Eosinophils % (A) 0 %; Lymphocytes # (A) 1.6 k/uL (1.0-4.8); Lymphocytes % (A) 9 %; MCH 27.4 pg (25.0-35.0); MCHC 32.6 g/dL (31.0-37.0); MCV 84.2 fL (80.0-100.0); Mean Platelet Volume 8.3; Monocytes # (A) 1.1 k/uL (0-1.0); Monocytes % (A) 6 %; Neutrophils # (A) 13.5 k/uL (1.3-7.7); Neutrophils % (A) 80 %; Platelet Count 366 k/uL (150-450); RBC 4.75 m/uL (3.80-5.40); RDW 14.1 % (11.5-15.5); WBC 16.9 k/uL (3.8-10.6)
[2020-03-26 07:17] LABS: Albumin 3.9 g/dL (3.5-5.0); Calcium 9.3 mg/dL (8.4-10.2); Potassium 3.5 mmol/L (3.5-5.1); Total Bilirubin 0.7 mg/dL (0.2-1.3)
[2020-03-26 07:57] LABS: Appearance,Urine Cloudy (Clear); Bacteria,Urine Rare /hpf; Bilirubin,Urine Negative (Negative); Blood,Urine Moderate (Negative); Color,Urine Yellow; Glucose,Urine (UA) Negative (Negative); Ketones,Urine 1+ (Negative); Leukocyte Esterase,Urine Negative (Negative); Mucus,Urine Rare /hpf; Nitrite,Urine Negative (Negative); Protein,Urine 1+ (Negative); RBC,Urine 14 /hpf (0-5); Specific Gravity,Urine 1.018 (1.001-1.035); Squamous Epithelial Cell,Urine 10 /hpf (0-4); WBC,Urine 3 /hpf (0-5)
--- NOTE | 2020-03-26 08:01 | CT ---
EXAMINATION TYPE: CT abdomen pelvis wo con DATE OF EXAM: 03/26/2020 COMPARISON: Previous study dated 11/05/2019. HISTORY: abdominal pain CT DLP: 776.9 mGycm Automated exposure control for dose reduction was used. FINDINGS: There is some minimal atelectasis at the lung bases. There is no pleural or pericardial flu id. The heart is not enlarged. There is a small, sliding hiatal hernia. Within the abdomen, there is gross distention of the stomach. There is fluid and food debris within t he stomach. There is some inflammatory change around the duodenal bulb. This has progressed from prev ious. The third and fourth parts of the duodenum are normal in caliber. The remainder of the small robina wel is normal in caliber. The liver, spleen and gallbladder are unremarkable. Both adrenal glands appear normal. There is no evidence of hydronephrosis or nephrolithiasis. Limited views of the pancreas are unremarkable. There is mild atheromatous calcification of the visualized arterial tree. There is no significant ret roperitoneal, iliac or inguinal adenopathy. The bladder is not distended. There are scattered diverticula within the sigmoid region without radiographic evidence of diverticul itis. The appendix is not visualized with certainty. No free fluid and no free air is seen. There is degenerative disc disease, facet arthropathy and hypertrophic spondylosis within the spine. IMPRESSION: FINDINGS CONSISTENT WITH ACUTE DUODENITIS CAUSING SOME DEGREE OF GASTRIC OUTLET OBSTRUCTION.
[2020-03-26] MEDS ORDERED: PANTOPRAZOLE 40 MG/10 ML VIAL IVP STA (08:25)
[2020-03-26] MEDS ORDERED: MORPHINE SULFATE 2 MG/ML SYRINGE IV PRN (08:29)
[2020-03-26] MEDS ORDERED: ONDANSETRON 4 MG/2 ML VIAL IVP PRN (08:29)
[2020-03-26] MEDS ORDERED: NALOXONE 0.4 MG/ML 1 ML VIAL IV PRN ×2 (08:29→13:34)
[2020-03-26] MEDS ORDERED: PANTOPRAZOLE 40 MG/10 ML VIAL IV SCH (09:00)
--- NOTE | 2020-03-26 09:21 | XR ---
EXAMINATION TYPE: XR chest 1V DATE OF EXAM: 03/26/2020 HISTORY: NG placement. REFERENCE: NONE. FINDINGS: And NG tube is been passed. Its tip is coiled in the stomach. The entire lungs are not visualized. Heart size upper limits of normal. I do not see evidence of pneu monia or edema. IMPRESSION: SATISFACTORY NG TUBE PLACEMENT.
--- NOTE | 2020-03-26 09:22 | XR ---
EXAMINATION TYPE: XR KUB portable , DATE OF EXAM ORDERED: 03/26/2020 HISTORY: NG tube placement. COMPARISON: Previous study dated 11/06/2019. FINDINGS: Entire lungs are not visualized on this study. An NG tube is been passed. Its tip is coile d in the stomach. IMPRESSION: LIMITED EXAMINATION SHOWING SATISFACTORY NG TUBE PLACEMENT.
[2020-03-26] MEDS: SODIUM CHLORIDE 0.9% 1,000 ML IV SCH (09:38)
--- NOTE | 2020-03-26 13:42 | P.HPIM ---
History of Present Illness H&P Date: 03/26/20 Chief Complaint: abdominal pain 80-year-old female presents emergency Department because of abdominal pain, nausea and vomiting. Patient states started 2-3 days ago. 2 days ago she had a normal bowel movement but nothing since then, has not been passing gas either. No fevers or chills. No chest pain or shortness of breath. No recent illness, no cough. No melena or hematochezia. Patient states she's had a prior hysterectomy and appendectomy. In the emergency department she had computed tomography scan of the abdomen that showed gastric outlet obstruction at the level of the duodenum induced by duodenitis. NG tube was inserted due to persistent vomiting and 2500 mL of liquids came out. Review of Systems Complete review of system performed, pertinent positives per HPI, otherwise negative Past Medical History Past Medical History: Hypertension Additional Past Medical History / Comment(s): Diverticulitis History of Any Multi-Drug Resistant Organisms: None Reported Past Surgical History: Hysterectomy Past Psychological History: No Psychological Hx Reported Smoking Status: Never smoker Past Alcohol Use History: None Reported Past Drug Use History: None Reported - Past Family History Father Family Medical History: Coronary Artery Disease (CAD), Hypertension Mother Family Medical History: No Reported History Medications and Allergies Home Medications Medication Instructions Recorded Confirmed Type ALPRAZolam [Xanax] 0.25 mg PO DAILY PRN 03/26/20 03/26/20 History Cholecalciferol [Vitamin D3 (25 5,000 unit PO DAILY 03/26/20 03/26/20 History Mcg = 1000 Iu)] Enalapril Maleate [Vasotec] 20 mg PO DAILY 03/26/20 03/26/20 History Allergies Allergy/AdvReac Type Severity Reaction Status Date / Time Penicillins Allergy Unknown Verified 03/26/20 06:37 Physical Exam Vitals: Vital Signs Temp Pulse Resp BP Pulse Ox 03/26/20 06:32 97.9 F 99 18 127/74 95 Intake and Output 03/25/20 03/26/20 03/26/20 22:59 06:59 14:59 Other: Weight 77.111 kg Constitutional: No acute distress, conversant, pleasant Eyes:Anicteric sclerae, moist conjunctiva, no lid-lag, PERRLA, ENMT: Oropharynx clear, no erythema, exudates Neck: Supple, FROM, no masses, or JVD, No carotid bruits, No thyromegaly Lungs: Clear to auscultation, Clear to percussion, Normal respiratory effort, no accessory muscle use Cardiovascular: Heart regular in rate and rhythm, No murmurs, gallops, or rubs, No peripheral edema Abdominal: Soft, epigastric tenderness, rebound or rigidity, Normoactive bowel sounds, No hepatomegaly, No splenomegaly, No palpable mass Skin: Normal temperature, tone, texture, turgor, no induration, No subcutaneous nodules, No rash, lesions, No ulcers Extremities: No digital cyanosis, No clubbing, Pedal pulses intact and symmetrical, Radial pulses intact and symmetrical, No calf tenderness Psychiatric: Alert and oriented to person, place and time, appropriate affect, intact judgement Neuro: Muscles Strength 5/5 in all 4 extremities, Sensation to light touch grossly present throughout, Cranial nerves II-XII grossly intact, no focal sensory deficits Results CBC & Chem 7: 03/26/20 06:49 03/26/20 06:49 Labs: Abnormal Lab Results - Last 24 Hours (Table) 03/26/20 03/26/20 03/26/20 Range/Units 06:48 06:49 06:49 WBC 16.9 H (3.8-10.6) k/uL Neutrophils # 13.5 H (1.3-7.7) k/uL Monocytes # 1.1 H (0-1.0) k/uL Sodium 134 L (137-145) mmol/L Chloride 94 L (98-107) mmol/L BUN 22 H (7-17) mg/dL Creatinine 1.29 H (0.52-1.04) mg/dL Glucose 131 H (74-99) mg/dL POC Glucose (mg/dL) 123 H (75-99) mg/dL Urine Appearance (Clear) Urine Protein (Negative) Urine Ketones (Negative) Urine Blood (Negative) Urine RBC (0-5) /hpf Ur Squamous Epith Cells (0-4) /hpf Urine Bacteria (None) /hpf Urine Mucus (None) /hpf 03/26/20 Range/Units 07:45 WBC (3.8-10.6) k/uL Neutrophils # (1.3-7.7) k/uL Monocytes # (0-1.0) k/uL Sodium (137-145) mmol/L Chloride (98-107) mmol/L BUN (7-17) mg/dL Creatinine (0.52-1.04) mg/dL Glucose (74-99) mg/dL POC Glucose (mg/dL) (75-99) mg/dL Urine Appearance Cloudy H (Clear) Urine Protein 1+ H (Negative) Urine Ketones 1+ H (Negative) Urine Blood Moderate H (Negative) Urine RBC 14 H (0-5) /hpf Ur Squamous Epith Cells 10 H (0-4) /hpf Urine Bacteria Rare H (None) /hpf Urine Mucus Rare H (None) /hpf Assessment and Plan Plan: Gastric outlet obstruction Duodenitis Anxiety Hypertension essential Start Protonix IV 40 mg twice a day Maintain NG tube, monitor output NPO IV fluids Pain and anxiety control with morphine and Ativan when necessary Consult general surgery Patient admitted as inpatient, expected length of stay more than 2 midnights
--- NOTE | 2020-03-26 13:45 | P.GSCN ---
History of Present Illness Consult date: 03/26/20 Reason for Consult: Gastric outlet obstruction History of present illness: This is a 1-year-old female who has developed progressive abdominal pain and dysphagia over the last 3 days. Patient woke this morning with severe epigastric abdominal pain. Patient awake CAT scan is found have acutely distended stomach with gastric outlet obstruction. There is evidence of duodenitis in the CAT scan. The patient denies any use of NSAIDs. She denies any history of peptic ulcer disease Past Medical History Past Medical History: Hypertension Additional Past Medical History / Comment(s): Diverticulitis History of Any Multi-Drug Resistant Organisms: None Reported Past Surgical History: Hysterectomy Past Anesthesia/Blood Transfusion Reactions: No Reported Reaction Past Psychological History: No Psychological Hx Reported Smoking Status: Never smoker Past Alcohol Use History: None Reported Past Drug Use History: None Reported - Past Family History Father Family Medical History: Coronary Artery Disease (CAD), Hypertension Mother Family Medical History: No Reported History Medications and Allergies Home Medications Medication Instructions Recorded Confirmed Type ALPRAZolam [Xanax] 0.25 mg PO DAILY PRN 03/26/20 03/26/20 History Cholecalciferol [Vitamin D3 (25 5,000 unit PO DAILY 03/26/20 03/26/20 History Mcg = 1000 Iu)] Enalapril Maleate [Vasotec] 20 mg PO DAILY 03/26/20 03/26/20 History Allergies Allergy/AdvReac Type Severity Reaction Status Date / Time Penicillins Allergy Unknown Verified 03/26/20 06:37 Surgical - Exam Vital Signs Temp Pulse Resp BP Pulse Ox 97.9 F 99 18 127/74 95 03/26/20 06:32 03/26/20 06:32 03/26/20 06:32 03/26/20 06:32 03/26/20 06:32 - General well developed, well nourished, no distress, moderate distress - Eyes PERRL - ENT normal pinna - Neck no masses - Respiratory normal expansion - Cardiovascular Rhythm: regular - Abdomen Mild epigastric tenderness Abdomen: soft Results - Labs 03/26/20 06:49 03/26/20 06:49 Abnormal Lab Results - Last 24 Hours (Table) 03/26/20 03/26/20 03/26/20 Range/Units 06:48 06:49 06:49 WBC 16.9 H (3.8-10.6) k/uL Neutrophils # 13.5 H (1.3-7.7) k/uL Monocytes # 1.1 H (0-1.0) k/uL Sodium 134 L (137-145) mmol/L Chloride 94 L (98-107) mmol/L BUN 22 H (7-17) mg/dL Creatinine 1.29 H (0.52-1.04) mg/dL Glucose 131 H (74-99) mg/dL POC Glucose (mg/dL) 123 H (75-99) mg/dL Urine Appearance (Clear) Urine Protein (Negative) Urine Ketones (Negative) Urine Blood (Negative) Urine RBC (0-5) /hpf Ur Squamous Epith Cells (0-4) /hpf Urine Bacteria (None) /hpf Urine Mucus (None) /hpf 03/26/20 Range/Units 07:45 WBC (3.8-10.6) k/uL Neutrophils # (1.3-7.7) k/uL Monocytes # (0-1.0) k/uL Sodium (137-145) mmol/L Chloride (98-107) mmol/L BUN (7-17) mg/dL Creatinine (0.52-1.04) mg/dL Glucose (74-99) mg/dL POC Glucose (mg/dL) (75-99) mg/dL Urine Appearance Cloudy H (Clear) Urine Protein 1+ H (Negative) Urine Ketones 1+ H (Negative) Urine Blood Moderate H (Negative) Urine RBC 14 H (0-5) /hpf Ur Squamous Epith Cells 10 H (0-4) /hpf Urine Bacteria Rare H (None) /hpf Urine Mucus Rare H (None) /hpf Diabetes panel 03/26/20 Range/Units 06:49 Sodium 134 L (137-145) mmol/L Potassium 3.5 (3.5-5.1) mmol/L Chloride 94 L (98-107) mmol/L Carbon Dioxide 29 (22-30) mmol/L BUN 22 H (7-17) mg/dL Creatinine 1.29 H (0.52-1.04) mg/dL Glucose 131 H (74-99) mg/dL Calcium 9.3 (8.4-10.2) mg/dL AST 20 (14-36) U/L ALT 15 (4-34) U/L Alkaline Phosphatase 62 (38-126) U/L Total Protein 7.0 (6.3-8.2) g/dL Albumin 3.9 (3.5-5.0) g/dL Calcium panel 03/26/20 Range/Units 06:49 Calcium 9.3 (8.4-10.2) mg/dL Albumin 3.9 (3.5-5.0) g/dL Pituitary panel 03/26/20 Range/Units 06:49 Sodium 134 L (137-145) mmol/L Potassium 3.5 (3.5-5.1) mmol/L Chloride 94 L (98-107) mmol/L Carbon Dioxide 29 (22-30) mmol/L BUN 22 H (7-17) mg/dL Creatinine 1.29 H (0.52-1.04) mg/dL Glucose 131 H (74-99) mg/dL Calcium 9.3 (8.4-10.2) mg/dL Adrenal panel 03/26/20 Range/Units 06:49 Sodium 134 L (137-145) mmol/L Potassium 3.5 (3.5-5.1) mmol/L Chloride 94 L (98-107) mmol/L Carbon Dioxide 29 (22-30) mmol/L BUN 22 H (7-17) mg/dL Creatinine 1.29 H (0.52-1.04) mg/dL Glucose 131 H (74-99) mg/dL Calcium 9.3 (8.4-10.2) mg/dL Total Bilirubin 0.7 (0.2-1.3) mg/dL AST 20 (14-36) U/L ALT 15 (4-34) U/L Alkaline Phosphatase 62 (38-126) U/L Total Protein 7.0 (6.3-8.2) g/dL Albumin 3.9 (3.5-5.0) g/dL Assessment and Plan Assessment: Patient had a nasogastric tube placed in the emergency room. She had 2800 mL removed from her stomach. The patient will be scheduled for EGD in the a.m.
[2020-03-26] MEDS: PANTOPRAZOLE 40 MG/10 ML VIAL IVP SCH ×2 (16:16→21:29)
[2020-03-27] MEDS: LORazepam 2 MG/ML INJ IV PRN (00:47)
[2020-03-27] MEDS: SODIUM CHLORIDE 0.9% 1,000 ML IV SCH ×2 (00:47→15:43)
[2020-03-27 06:19] LABS: Basophils # (A) 0.1 k/uL (0-0.2); Basophils % (A) 1 %; Eosinophils # (A) 0.2 k/uL (0-0.7); Eosinophils % (A) 2 %; HCT 38.5 % (34.0-46.0); HGB 12.2 gm/dL (11.4-16.0); Hypochromasia Moderate; Lymphocytes # (A) 2.1 k/uL (1.0-4.8); Lymphocytes % (A) 18 %; MCH 27.7 pg (25.0-35.0); MCHC 31.7 g/dL (31.0-37.0); MCV 87.3 fL (80.0-100.0); Mean Platelet Volume 7.8; Monocytes # (A) 0.7 k/uL (0-1.0); Monocytes % (A) 6 %; Neutrophils # (A) 7.9 k/uL (1.3-7.7); Neutrophils % (A) 69 %; Platelet Count 283 k/uL (150-450); RBC 4.41 m/uL (3.80-5.40); RDW 14.1 % (11.5-15.5); WBC 11.5 k/uL (3.8-10.6)
[2020-03-27 06:24] LABS: Prothrombin Time 10.5 sec (9.0-12.0)
[2020-03-27 06:29] LABS: Albumin 3.4 g/dL (3.5-5.0); Calcium 8.9 mg/dL (8.4-10.2); Magnesium 1.9 mg/dL (1.6-2.3); Potassium 3.3 mmol/L (3.5-5.1); Total Bilirubin 0.9 mg/dL (0.2-1.3); Total Protein 6.2 g/dL (6.3-8.2)
[2020-03-27] MEDS: PANTOPRAZOLE 40 MG/10 ML VIAL IVP SCH ×2 (07:53→20:09)
[2020-03-27] MEDS ORDERED: POTASSIUM CHLORIDE 10 MEQ in WATER FOR INJECTION 1 100ML.BAG IVPB STA (08:05)
--- NOTE | 2020-03-27 09:34 | P.PN ---
Subjective Progress Note Date: 03/27/20 Principal diagnosis: abdominal pain Patient feeling better, still has NG tube draining brownish liquids. No bleeding. No abdominal or chest pain. No sob. Objective - Vital Signs Vital signs: Vital Signs Temp 97.8 F 03/27/20 05:36 Pulse 69 03/27/20 05:36 Resp 18 03/27/20 05:36 BP 92/58 03/27/20 05:36 Pulse Ox 96 03/27/20 05:36 Intake & Output 03/26/20 03/27/20 03/27/20 18:59 06:59 18:59 Intake Total 0 600 Output Total 3100 800 Balance -3100 -200 Weight 77.111 kg Intake: Intake, IV Titration 600 Amount Sodium Chloride 0.9% 1, 600 000 ml @ 75 mls/hr IV . [id number] [facility] Rx#:[id number] Oral 0 0 Output: Gastric Drainage 3100 800 Other: Voiding Method Toilet Toilet # Voids 2 1 - Exam Constitutional: No acute distress, conversant, pleasant Eyes:Anicteric sclerae, moist conjunctiva, no lid-lag, PERRLA, ENMT: Oropharynx clear, no erythema, exudates Neck: Supple, FROM, no masses, or JVD, No carotid bruits, No thyromegaly Lungs: Clear to auscultation, Clear to percussion, Normal respiratory effort, no accessory muscle use Cardiovascular: Heart regular in rate and rhythm, No murmurs, gallops, or rubs, No peripheral edema Abdominal: Soft, epigastric tenderness, rebound or rigidity, Normoactive bowel sounds, No hepatomegaly, No splenomegaly, No palpable mass Skin: Normal temperature, tone, texture, turgor, no induration, No subcutaneous nodules, No rash, lesions, No ulcers Extremities: No digital cyanosis, No clubbing, Pedal pulses intact and symmetrical, Radial pulses intact and symmetrical, No calf tenderness Psychiatric: Alert and oriented to person, place and time, appropriate affect, intact judgement Neuro: Muscles Strength 5/5 in all 4 extremities, Sensation to light touch grossly present throughout, Cranial nerves II-XII grossly intact, no focal sensory deficits - Labs CBC & Chem 7: 03/27/20 05:18 03/27/20 05:18 Labs: Abnormal Lab Results - Last 24 Hours (Table) 03/27/20 03/27/20 Range/Units 05:18 05:18 WBC 11.5 H (3.8-10.6) k/uL Neutrophils # 7.9 H (1.3-7.7) k/uL Potassium 3.3 L (3.5-5.1) mmol/L BUN 19 H (7-17) mg/dL Creatinine 1.21 H (0.52-1.04) mg/dL Glucose 63 L (74-99) mg/dL Total Protein 6.2 L (6.3-8.2) g/dL Albumin 3.4 L (3.5-5.0) g/dL Assessment and Plan Plan: Gastric outlet obstruction Duodenitis Anxiety Hypertension essential CKD 3 Hypokalemia Protonix IV 40 mg twice a day Replace K Maintain NG tube, monitor output Surgery planning EGD NPO IV fluids Repeat labs in am Pain and anxiety control with morphine and Ativan when necessary Anticipated discharge: 2-3 days Anticipated disposition: home
[2020-03-27] MEDS ORDERED: IV FLUID CONTINUATION 1,000 ML IV ONE (14:40)
[2020-03-27] MEDS ORDERED: PROPOFOL 10 MG/ML 20 ML VIAL IV ONE (14:46)
--- NOTE | 2020-03-27 15:08 | P.OP ---
Date of Procedure: 03/27/20 Preoperative Diagnosis: Gastric outlet obstruction Postoperative Diagnosis: Gastric obstruction Peptic ulcer disease Procedure(s) Performed: EGD Anesthesia: MAC Surgeon: Geovanni Livingston Pathology: other (Duodenum) Condition: stable Disposition: PACU Description of Procedure: Patient's placed on the endoscopy table in the lateral position. She received IV sedation. The gastroscope placed oropharynx passed in the esophagus and into the stomach. There was retained food in stomach. The pylorus was visualized. In the duodenum in the first second portion of the duodenum there was extensive peptic ulcer disease with scarring of the duodenum. A biopsies performed. There appeared to be complete obstruction of the duodenum. The scope was withdrawn. The remainder some appeared normal. The GE junction was at 40 cms. The distal esophagus appeared mildly inflamed. The proximal esophagus appeared normal. Scope was withdrawn for patient.
[2020-03-28] MEDS: SODIUM CHLORIDE 0.9% 1,000 ML IV SCH ×2 (04:56→08:26)
[2020-03-28 07:31] LABS: Basophils % (A) 0 %; Eosinophils # (A) 0.1 k/uL (0-0.7); Eosinophils % (A) 1 %; HCT 36.4 % (34.0-46.0); HGB 11.7 gm/dL (11.4-16.0); Hypochromasia Slight; Lymphocytes # (A) 1.1 k/uL (1.0-4.8); Lymphocytes % (A) 10 %; MCH 27.7 pg (25.0-35.0); MCHC 32.1 g/dL (31.0-37.0); MCV 86.3 fL (80.0-100.0); Monocytes # (A) 0.8 k/uL (0-1.0); Monocytes % (A) 7 %; Neutrophils # (A) 8.2 k/uL (1.3-7.7); Neutrophils % (A) 77 %; Platelet Count 277 k/uL (150-450); RBC 4.22 m/uL (3.80-5.40); WBC 10.6 k/uL (3.8-10.6)
[2020-03-28 07:35] LABS: Calcium 8.5 mg/dL (8.4-10.2); Magnesium 1.9 mg/dL (1.6-2.3); Phosphorus 2.9 mg/dL (2.5-4.5); Total Bilirubin 0.8 mg/dL (0.2-1.3); Total Protein 5.7 g/dL (6.3-8.2)
[2020-03-28] MEDS: PANTOPRAZOLE 40 MG/10 ML VIAL IVP SCH ×2 (08:25→21:56)
[2020-03-28] MEDS ORDERED: Potassium Replacement Protocol 1 EACH MISC MISCELLANE PRN (08:52)
[2020-03-28] MEDS: POTASSIUM CHLORIDE 10 MEQ in WATER FOR INJECTION 1 100ML.BAG IVPB SCH ×3 (14:26→22:01)
--- NOTE | 2020-03-28 15:28 | P.PN ---
Subjective Progress Note Date: 03/28/20 Principal diagnosis: Nausea and vomiting, gastric overload obstruction Patient was seen and examined this morning. NG tube currently inserted to suction. He reports hunger. She denies any nausea or vomiting. No abdominal pain. No bowel movement since admission. Patient reports passing minimal gas. Plans for surgery today. Objective - Vital Signs Vital signs: Vital Signs Temp 98.7 F 03/28/20 12:30 Pulse 78 03/28/20 12:30 Resp 18 03/28/20 12:30 BP 184/75 03/28/20 12:30 Pulse Ox 93 L 03/28/20 12:30 Intake & Output 03/27/20 03/28/20 03/28/20 18:59 06:59 18:59 Intake Total 650 225 600 Output Total 450 Balance 200 225 600 Intake: IV 100 Intake, IV Titration 550 225 600 Amount Potassium Chloride 10 meq 100 In Water For Injection 1 100ml.bag @ 100 mls/hr IVPB ONCE ST[facility] Rx#: [id number] Sodium Chloride 0.9% 1, 450 225 600 000 ml @ 75 mls/hr IV . [id number] COUNT INCLUDES THE [facility] Rx#:[id number] Output: Gastric Drainage 450 Other: Voiding Method Toilet Toilet Toilet # Voids 1 - Exam General: [non toxic], [no distress, NG tube to suction], [appears at stated age] Derm: [warm], [dry] Head: [atraumatic], [normocephalic], [symmetric] Eyes: [EOMI], [no lid lag], [anicteric sclera] Mouth: [no lip lesion], [mucus membranes moist] Cardiovascular: [S1S2 reg], [no murmur], [positive DP pulse bilateral], Lungs: [CTA bilateral], [no rhonchi, no rales] , [no accessory muscle use] Abdominal: [soft, decreased bowel sounds], [ nontender to palpation], [no guarding], [no appreciable organomegaly] Ext: [no gross muscle atrophy], [no edema], [no contractures] Neuro: [ CN II-XI grossly intact], [no focal neuro deficits] Psych: [Alert], [oriented], [appropriate affect] - Labs CBC & Chem 7: 03/28/20 06:44 03/28/20 06:44 Labs: Abnormal Lab Results - Last 24 Hours (Table) 03/28/20 03/28/20 Range/Units 06:44 06:44 Neutrophils # 8.2 H (1.3-7.7) k/uL Potassium 3.0 L (3.5-5.1) mmol/L BUN 22 H (7-17) mg/dL Creatinine 1.26 H (0.52-1.04) mg/dL Glucose 72 L (74-99) mg/dL Total Protein 5.7 L (6.3-8.2) g/dL Albumin 3.0 L (3.5-5.0) g/dL Assessment and Plan Assessment: Hypoglycemia Gastric outlet obstruction Hypokalemia Duodenitis Anxiety Hypertension Chronic kidney disease stage III Glucose 72. Plans: Switch normal saline to D5 while nothing by mouth. Plans: Plans for surgery today. Keep nothing by mouth. NG tube to suction. Continue Protonix IV twice a day. Zofran as needed for vomiting. Morphine for pain control. Continue IVF as above. Plans: Replace potassium via protocol. Repeat BMP tomorrow morning. Plans: Management as above. Plans: Ativan IV as needed. BP 173/75. Plans: Restart enalapril when able to tolerate oral intake. Creatinine 1.26. Plans: Avoid nephrotoxins. At baseline. IVF as above. Repeat BMP tomorrow morning. DVT prophylaxis: [SCD boots] Discussed with: [Patient] Anticipated discharge: [2-3 days] Anticipated discharge place: [Home] A total of [35] minutes was spent on the care of this complex patient more than 50% of the time was spent in counseling and care coordination.
[2020-03-28] MEDS: DEXTROSE 5%-0.9% NACL 1,000 ML IV SCH (16:28)
[2020-03-28] MEDS ORDERED: LIDOCAINE 1% (10MG/ML) FOR IV START INTRADERMA PRN (18:49)
[2020-03-28] MEDS ORDERED: ONDANSETRON 4 MG/2 ML VIAL IVP ONE (18:49)
[2020-03-28] MEDS ORDERED: DEXAMETHASONE SOD PHOSPHATE 10 MG/ML 1 ML VIAL IV ONE (18:49)
[2020-03-28] MEDS ORDERED: MORPHINE SULFATE 2 MG/ML SYRINGE IV PRN (18:49)
[2020-03-28] MEDS ORDERED: LACTATED RINGERS 1,000 ML IV SCH (19:00)
[2020-03-28] MEDS ORDERED: NEOSTIGMINE 1 MG/ML 10 ML VIAL ONE (19:47)
[2020-03-28] MEDS ORDERED: fentaNYL (PF) 50 MCG/ML 2 ML AMP ONE (19:47)
[2020-03-28] MEDS ORDERED: PHENYLEPHRINE-0.9% NACL SYG 1 MG/10 ML SYRINGE ONE (19:47)
[2020-03-28] MEDS ORDERED: ROCURONIUM BROMIDE 10 MG/ML 5 ML VIAL IV ONE (19:47)
[2020-03-28] MEDS ORDERED: LIDOCAINE 1% INJ 10MG/ML (20 ML MDV) ONE (19:47)
[2020-03-28] MEDS ORDERED: SUCCINYLCHOLINE CHLORIDE 100 MG/5 ML SYR IV ONE (19:47)
[2020-03-28] MEDS ORDERED: MIDAZOLAM 2 MG/2 ML VIAL ONE (19:47)
[2020-03-28] MEDS ORDERED: LACTATED RINGERS 1,000 ML IV ONE ×2 (19:47→20:43)
[2020-03-28] MEDS ORDERED: GLYCOPYRROLATE 0.2 MG/ML 2 ML VIAL ONE (19:47)
[2020-03-28] MEDS ORDERED: PROPOFOL 10 MG/ML 20 ML VIAL IV ONE (19:47)
[2020-03-28] MEDS ORDERED: NALOXONE 0.4 MG/ML 1 ML VIAL IV PRN (20:43)
--- NOTE | 2020-03-28 20:43 | P.OP ---
Date of Procedure: 03/28/20 Preoperative Diagnosis: Gastric outlet obstruction Postoperative Diagnosis: Gastric outlet obstruction Procedure(s) Performed: Gastrojejunostomy Anesthesia: KYLEE Surgeon: Geovanni Livingston Estimated Blood Loss (ml): 25 Pathology: none sent Condition: stable Disposition: PACU Description of Procedure: The patient's placed the operative table in the supine position. She received IV sedation. She then received MAC. The abdomen was prepped and draped in sterile fashion. The eye was entered through an upper midline incision. The Bookwalter tract with wound. The stomach appeared to be grossly enlarged. The stomach was palpated and at the level of the pylorus appeared to be an inflammatory obstruction. Is thought to be ulcer disease. At this point decided to perform a gastrojejunostomy. The answers: Mesentery was visualized. And then the ligament Treitz is found. The small bowel was run to proximal jejunum. And then the loop of jejunum was brought up in antecolic fashion to the anterior gastric wall. A gastric jejunostomy was then created using JC and TA staplers. 3-0 GI silk sutures using a crotch stitch care was taken to ensure that the gastrojejunostomy laid without any evidence of kinking or obstruction. The abdomen was irrigated there is no bleeding seen. The fascia was closed with looped #1 PDS suture. Skin was closed sangeetha. Patient top she will was sent to recovery room stable condition.
[2020-03-28] MEDS ORDERED: METOCLOPRAMIDE 5 MG/ML 2 ML VIAL IVP PRN (21:00)
[2020-03-28] MEDS ORDERED: LABETALOL SYRINGE 5 MG/ML IVP ONE (21:20)
[2020-03-29] MEDS: POTASSIUM CHLORIDE 10 MEQ in WATER FOR INJECTION 1 100ML.BAG IVPB SCH ×3 (00:49→20:55)
[2020-03-29] MEDS: HYDROmorphone 0.5 MG/0.5 ML SYRINGE IVP PRN ×4 (02:19→19:39)
[2020-03-29] MEDS: DEXTROSE 5%-0.9% NACL 1,000 ML IV SCH (05:09)
[2020-03-29 05:17] LABS: Albumin 2.9 g/dL (3.5-5.0); Calcium 8.4 mg/dL (8.4-10.2); Potassium 3.6 mmol/L (3.5-5.1); Total Bilirubin 0.7 mg/dL (0.2-1.3); Total Protein 5.6 g/dL (6.3-8.2)
[2020-03-29 05:22] LABS: Basophils % (A) 0 %; Eosinophils % (A) 0 %; HCT 35.2 % (34.0-46.0); HGB 11.5 gm/dL (11.4-16.0); Hypochromasia Slight; Lymphocytes # (A) 0.8 k/uL (1.0-4.8); Lymphocytes % (A) 6 %; MCH 27.9 pg (25.0-35.0); MCHC 32.7 g/dL (31.0-37.0); MCV 85.4 fL (80.0-100.0); Mean Platelet Volume 7.9; Monocytes # (A) 0.8 k/uL (0-1.0); Monocytes % (A) 6 %; Neutrophils # (A) 11.9 k/uL (1.3-7.7); Neutrophils % (A) 85 %; Platelet Count 272 k/uL (150-450); RBC 4.12 m/uL (3.80-5.40); RDW 14.1 % (11.5-15.5); WBC 14.1 k/uL (3.8-10.6)
[2020-03-29] MEDS: PANTOPRAZOLE 40 MG/10 ML VIAL IVP SCH ×2 (07:21→20:30)
[2020-03-29] MEDS: ENOXAPARIN 40 MG/0.4 ML SYRINGE SQ SCH (07:22)
--- NOTE | 2020-03-29 10:00 | P.PN ---
Subjective Progress Note Date: 03/29/20 CHIEF COMPLAINT: Gastric outlet obstruction HISTORY OF PRESENT ILLNESS: Patient is status post gastrojejunostomy with Dr. Livingston. Postop day #1. Patient examined at the bedside with Dr. Livingston. Patient reports abdominal discomfort but states it is tolerable at this time. NG tube remains intact to low intermittent suction. Patient denies passing flatus. Vital signs stable. She is afebrile. WBC 14.1. Hemoglobin 11.5. PHYSICAL EXAM: VITAL SIGNS: Reviewed. GENERAL: Well-developed in no acute distress. HEENT: No sclera icterus. Extraocular movements grossly intact. Moist buccal mucosa. Head is atraumatic, normocephalic. ABDOMEN: Soft. Nondistended. Dressing with sanguinous drainage. Abdominal binder noted. NG tube to LIS. NEUROLOGIC: Alert and oriented. Cranial nerves II through XII grossly intact. ASSESSMENT: 1. Gastric outlet obstruction, status post gastrojejunostomy PLAN: -Continue NG to LIS -May have ice chips, otherwise NPO -Change abdominal dressing -Obtain PICC line -Begin TPN -Due to low GFR, nephrology consulted placed due to hospital policy prior to PICC line insertion -Incentive spirometer -Activity as tolerated Nurse practitioner note has been reviewed by physician. Signing provider agrees with the documented findings, assessment, and plan of care. Objective - Vital Signs Vital signs: Vital Signs Temp 98.3 F 03/29/20 04:42 Pulse 83 03/29/20 04:42 Resp 18 03/29/20 04:42 BP 157/70 03/29/20 04:42 Pulse Ox 95 03/29/20 04:42 Intake & Output 03/28/20 03/29/20 03/29/20 18:59 06:59 18:59 Intake Total 600 1175 Output Total 650 725 Balance -50 450 Intake: IV 400 Intake, IV Titration 600 775 Amount Lactated Ringers 1,000 ml 575 @ 125 mls/hr IV .Q8H ONE Rx#:[id number] Potassium Chloride 10 meq 200 In Water For Injection 1 100ml.bag @ 100 mls/hr IVPB Q1HR [facility] Rx#: [id number] Sodium Chloride 0.9% 1, 600 000 ml @ 75 mls/hr IV . [id number] [facility] Rx#:[id number] Oral 0 Output: Gastric Drainage 650 Urine 700 Uretheral (Simon) 400 Estimated Blood Loss 25 Other: Voiding Method Toilet Toilet - Labs CBC & Chem 7: 03/29/20 04:44 03/29/20 04:44 Labs: Abnormal Lab Results - Last 24 Hours (Table) 03/29/20 03/29/20 Range/Units 04:44 04:44 WBC 14.1 H (3.8-10.6) k/uL Neutrophils # 11.9 H (1.3-7.7) k/uL Lymphocytes # 0.8 L (1.0-4.8) k/uL Carbon Dioxide 21 L (22-30) mmol/L BUN 20 H (7-17) mg/dL Creatinine 1.19 H (0.52-1.04) mg/dL Glucose 127 H (74-99) mg/dL Total Protein 5.6 L (6.3-8.2) g/dL Albumin 2.9 L (3.5-5.0) g/dL
[2020-03-29] MEDS ORDERED: LEVOFLOXACIN 500MG-D5W PMX 500 MG in DEXTROSE/WATER 1 100ML.BAG IVPB SCH (11:00)
[2020-03-29 12:03] LABS: Magnesium 1.9 mg/dL (1.6-2.3)
--- NOTE | 2020-03-29 12:44 | P.NPCON ---
History of Present Illness - Reason for Consult acute renal failure - History of Present Illness Reason for consultation: Acute kidney injury History of present illness: Patient is a 80-year-old female seen in renal consultation for acute kidney injury. Patient's creatinine in October 2019 was 0.96. It peaked at 1.29 this admission and is fairly stable at 1.19 today. Patient presented to the hospital with abdominal pain. Patient states the pain has been going on for quite some time and is intermittent. She states she couldn't the pain anymore and decided to come to the hospital. CAT scan of the abdomen and pelvis revealed gastric outlet obstruction. She currently has an NG tube in place. She underwent gastrojejunostomy on March 28. She'll be started on TPN. Currently receiving normal saline. She will be getting a PICC line placed today. Denies chest pain or shortness of breath. No abdominal pain. She is a Simon catheter. No hematuria or dysuria. Denies regular use of nonsteroidals. No history of diabetes. Denies family history of renal disease. Vital signs are stable. General: The patient appeared well nourished and normally developed. HEENT: Head exam is unremarkable. Neck is without jugular venous distension. NG tube noted. LUNGS: Lungs are clear to auscultation and percussion. Breath sounds decreased. HEART: Rate and Rhythm are regular. First and second heart sounds normal. No murmurs, rubs or gallops. ABDOMEN: Soft. Binder present. Nontender. EXTREMITITES: No clubbing, cyanosis, or edema. Past Medical History Past Medical History: Hypertension Additional Past Medical History / Comment(s): Diverticulitis History of Any Multi-Drug Resistant Organisms: None Reported Past Surgical History: Hysterectomy Past Anesthesia/Blood Transfusion Reactions: No Reported Reaction Past Psychological History: No Psychological Hx Reported Smoking Status: Never smoker Past Alcohol Use History: None Reported Past Drug Use History: None Reported - Past Family History Father Family Medical History: Coronary Artery Disease (CAD), Hypertension Mother Family Medical History: No Reported History Medications and Allergies Home Medications Medication Instructions Recorded Confirmed Type ALPRAZolam [Xanax] 0.25 mg PO DAILY PRN 03/26/20 03/26/20 History Cholecalciferol [Vitamin D3 (25 5,000 unit PO DAILY 03/26/20 03/26/20 History Mcg = 1000 Iu)] Enalapril Maleate [Vasotec] 20 mg PO DAILY 03/26/20 03/26/20 History Allergies Allergy/AdvReac Type Severity Reaction Status Date / Time Penicillins Allergy Unknown Verified 03/26/20 06:37 Physical Exam Vitals: Vital Signs Temp Pulse Pulse Resp BP Pulse Ox 03/29/20 08:00 83 18 03/29/20 04:42 98.3 F 83 18 157/70 95 03/29/20 01:20 82 183/70 96 03/29/20 00:25 76 183/70 97 03/29/20 00:00 70 18 03/28/20 23:25 76 187/74 96 03/28/20 22:55 72 189/71 95 03/28/20 22:25 76 184/72 94 L 03/28/20 22:10 73 190/73 95 03/28/20 21:55 72 190/73 95 03/28/20 21:40 97.9 F 71 16 197/71 95 03/28/20 21:24 72 16 187/63 94 L 03/28/20 21:16 81 16 205/88 96 03/28/20 21:01 81 16 185/77 96 03/28/20 20:45 98.5 F 87 16 175/74 94 L 03/28/20 19:00 97.1 F L 79 18 181/80 97 Intake and Output 03/28/20 03/29/20 03/29/20 22:59 06:59 14:59 Intake Total 525 650 Output Total 975 400 Balance -450 250 Intake: IV 400 Intake, IV Titration 125 650 Amount Lactated Ringers 1,000 ml 125 450 @ 125 mls/hr IV .Q8H [facility] Rx#:[id number] Potassium Chloride 10 meq 200 In Water For Injection 1 100ml.bag @ 100 mls/hr IVPB Q1HR [facility] Rx#: [id number] Oral 0 Output: Gastric Drainage 650 Urine 300 400 Uretheral (Simon) 400 Estimated Blood Loss 25 Other: Voiding Method Toilet Toilet Indwelling Catheter Weight 77.111 kg Results - Lab Results Most recent lab results Calcium 8.4 mg/dL (8.4-10.2) 03/29/20 04:44 Phosphorus 3.0 mg/dL (2.5-4.5) 03/29/20 11:32 Magnesium 1.9 mg/dL (1.6-2.3) 03/29/20 11:32 03/29/20 04:44 03/29/20 04:44 Assessment and Plan Plan: Assessment: 1. Acute kidney injury mostly prerenal improved with IV hydration. Creatinine peaked at 1.29 this admission and is 1.19 today. 2. Gastric outlet obstruction status post NG tube placement and gastrojejunostomy. 3. Mild metabolic acidosis secondary to acute kidney injury and IV fluids. Plan: Maintain normal saline at 50 mL an hour. TPN to be started today. Cleared for PICC line placement in her dominant arm. Thank you for the conservation. I will continue to follow the patient with you during her hospital stay.
[2020-03-29 12:46] LABS: Ionized Calcium 4.8 mg/dL (4.5-5.3)
--- NOTE | 2020-03-29 12:59 | P.PN ---
Subjective Progress Note Date: 03/29/20 Principal diagnosis: Nausea and vomiting, gastric overload obstruction Patient was seen and examined this morning. NG tube currently inserted to suction. Patient reports 9/10 pain in her epigstric area. Surgery done late last evening. She denies any nausea or vomiting. Patient reports no bowel movement or passing gas today. Objective - Vital Signs Vital signs: Vital Signs Temp 98.3 F 03/29/20 04:42 Pulse 83 03/29/20 08:00 Resp 18 03/29/20 08:00 BP 157/70 03/29/20 04:42 Pulse Ox 95 03/29/20 04:42 Intake & Output 03/28/20 03/29/20 03/29/20 18:59 06:59 18:59 Intake Total 600 1175 Output Total 650 725 Balance -50 450 Weight 77.111 kg Intake: IV 400 Intake, IV Titration 600 775 Amount Lactated Ringers 1,000 ml 575 @ 125 mls/hr IV .Q8H [facility] Rx#:[id number] Potassium Chloride 10 meq 200 In Water For Injection 1 100ml.bag @ 100 mls/hr IVPB Q1HR [facility] Rx#: [id number] Sodium Chloride 0.9% 1, 600 000 ml @ 75 mls/hr IV . [id number] [facility] Rx#:[id number] Oral 0 Output: Gastric Drainage 650 Urine 700 Uretheral (Simon) 400 Estimated Blood Loss 25 Other: Voiding Method Toilet Toilet Indwelling Catheter - Exam General: [non toxic], [no distress, NG tube to suction], [appears at stated age] Derm: [warm], [dry] Head: [atraumatic], [normocephalic], [symmetric] Eyes: [EOMI], [no lid lag], [anicteric sclera] Mouth: [no lip lesion], [mucus membranes moist] Cardiovascular: [S1S2 reg], [no murmur], [positive DP pulse bilateral], Lungs: [CTA bilateral], [no rhonchi, no rales] , [no accessory muscle use] Abdominal: [soft, decreased bowel sounds], [tenderness palpation in the epigastric area without rebound, abdominal binder in place], [no guarding], [no appreciable organomegaly] Ext: [no gross muscle atrophy], [no edema], [no contractures] Neuro: [no focal neuro deficits] Psych: [Alert], [oriented], [appropriate affect] - Labs CBC & Chem 7: 03/29/20 04:44 03/29/20 04:44 Labs: Abnormal Lab Results - Last 24 Hours (Table) 03/29/20 03/29/20 Range/Units 04:44 04:44 WBC 14.1 H (3.8-10.6) k/uL Neutrophils # 11.9 H (1.3-7.7) k/uL Lymphocytes # 0.8 L (1.0-4.8) k/uL Carbon Dioxide 21 L (22-30) mmol/L BUN 20 H (7-17) mg/dL Creatinine 1.19 H (0.52-1.04) mg/dL Glucose 127 H (74-99) mg/dL Total Protein 5.6 L (6.3-8.2) g/dL Albumin 2.9 L (3.5-5.0) g/dL Assessment and Plan Assessment: Gastric outlet obstruction Duodenitis Anxiety Hypertension Chronic kidney disease stage III Resolved: Hypokalemia, Hypoglycemia POD 1 Gastrojejunostomy. Plans: Plans to start TPN today. Keep nothing by mouth. NG tube to suction. Continue Protonix IV twice a day. Zofran as needed for v omiting. Will switch Dilaudid from Q4 to Q3 for better control of pain. Continue IVF as above. Plans: Management as above. Plans: Ativan IV as needed. BP 157/70. Plans: Restart enalapril when able to tolerate oral intake. Creatinine 1.19. Plans: Avoid nephrotoxins. At baseline. IVF as above. Repeat BMP tomorrow morning. Follow Nephrology recommendations. [Patient admitted for gastric outlet obstruction. POD 1 gastrojejunostomy. Patient reports uncontrolled pain and nausea. Plans to start TPN temporarily. She is pending clinical improvement. Likely DC in 2-3 days.]
[2020-03-29] MEDS ORDERED: LIDOCAINE 1% INJ 10MG/ML (20 ML MDV) SQ ONE (14:10)
[2020-03-29] MEDS: MVI, ADULT NO.4 WITH VIT K 10 ML, TRACE (CONC-1ML/DOSE) 1 ML in AMINO ACID 4.25%-D10W+L... IV SCH ×3 (15:44)
[2020-03-29] MEDS: FAT EMULSION 20% 250 ML in EMPTY BAG 1 BAG IV SCH (15:45)
[2020-03-29 18:07] LABS: Glucose,Whole Blood 171 mg/dL (75-99)
[2020-03-29] MEDS: INSULIN ASPART (NovoLOG) 100 UNIT/ML VIAL SQ SCH ×2 (18:07→23:54)
[2020-03-29 23:17] LABS: Glucose,Whole Blood 157 mg/dL (75-99)
[2020-03-30] MEDS ORDERED: cloNIDine 0.2 MG/24HR PATCH TRANSDERM SCH
[2020-03-30 05:47] LABS: Glucose,Whole Blood 164 mg/dL (75-99)
[2020-03-30] MEDS: INSULIN ASPART (NovoLOG) 100 UNIT/ML VIAL SQ SCH ×3 (06:26→17:47)
[2020-03-30 07:01] LABS: Albumin 2.7 g/dL (3.5-5.0); Calcium 8.6 mg/dL (8.4-10.2); Magnesium 1.8 mg/dL (1.6-2.3); Phosphorus 1.8 mg/dL (2.5-4.5)
[2020-03-30 07:03] LABS: Basophils % (A) 0 %; Eosinophils # (A) 0.1 k/uL (0-0.7); Eosinophils % (A) 1 %; HGB 11.2 gm/dL (11.4-16.0); Hypochromasia Slight; Lymphocytes # (A) 1.1 k/uL (1.0-4.8); Lymphocytes % (A) 9 %; MCH 28.3 pg (25.0-35.0); MCHC 32.8 g/dL (31.0-37.0); MCV 86.4 fL (80.0-100.0); Mean Platelet Volume 8.5; Monocytes % (A) 8 %; Neutrophils # (A) 9.3 k/uL (1.3-7.7); Neutrophils % (A) 78 %; Platelet Count 247 k/uL (150-450); RBC 3.94 m/uL (3.80-5.40); RDW 13.9 % (11.5-15.5); WBC 11.9 k/uL (3.8-10.6)
[2020-03-30] MEDS: DEXTROSE 5%-0.9% NACL 1,000 ML IV SCH (07:28)
[2020-03-30] MEDS: LEVOFLOXACIN 250MG-D5W PMX 250 MG in DEXTROSE/WATER 1 50ML.BAG IVPB SCH (07:40)
[2020-03-30] MEDS: ENOXAPARIN 40 MG/0.4 ML SYRINGE SQ SCH (07:40)
[2020-03-30] MEDS: PANTOPRAZOLE 40 MG/10 ML VIAL IVP SCH ×2 (07:40→20:37)
--- NOTE | 2020-03-30 08:11 | IR ---
EXAMINATION TYPE: IR cvc insert >=5 years DATE OF EXAM: 03/29/2020 COMPARISON: NONE CLINICAL HISTORY: Gastric outlet obstruction postop change Needs long-term intravenous access for the rapy. PROCEDURE: Hand hygiene obtained with alcohol-based hand rub. After informed consent, the skin overlying the right brachial vein was localized with ultrasound and noted to be compressible and patent. An ultrasound image was obtained and submitted on the patient's chart. The overlying skin was prepped and draped and Lidocaine was used for local anesthesia. A sk in janeen was made with a scalpel. Access was gained to the vein under ultrasound guidance with a 21 g auge needle and a 0.018 inch wire was advanced. Access site was dilated with Peel-Away sheath and ca theter tailored to the appropriate length and advanced such that the distal tip is at the cavoatrial junction. Spot image was obtained verifying placement. Catheter was fixed to the skin and a sterile dressing was placed following hemostasis. Catheter was aspirated and flushed with saline. Patient was discharged in stable condition without complication.Maximal barrier technique is utilized. Ultra sound image is documented on the chart. Ultrasound used with sterile technique. Fluoro time and fluoroscopic images submitted to document procedure: 0.5 minutes fluoroscopy time, 13 6 intraoperative images document the procedure IMPRESSION: STATUS POST ULTRASOUND AND FLUOROSCOPIC GUIDED PICC LINE PLACEMENT, READY FOR USE. THIS PROCEDURE WAS PERFORMED BY THE UNDERSIGNED.
[2020-03-30] MEDS ORDERED: Phosphorus Replacement Protoco 1 EACH MISC MISCELLANE PRN (09:19)
--- NOTE | 2020-03-30 10:26 | P.PN ---
Subjective Patient is seen in follow for acute kidney injury. Renal function is back to baseline. She is receiving TPN. Denies chest pain or shortness of breath. Vital signs are stable. General: The patient appeared well nourished and normally developed. HEENT: Head exam is unremarkable. Neck is without jugular venous distension. LUNGS: Lungs are clear to auscultation and percussion. Breath sounds decreased. HEART: Rate and Rhythm are regular. ABDOMEN: Generalized discomfort. No distention. EXTREMITITES: No clubbing, cyanosis, or edema. Objective - Vital Signs Vital signs: Vital Signs Temp 98.2 F 03/30/20 05:00 Pulse 85 03/30/20 05:00 Resp 18 03/30/20 05:00 BP 181/82 03/30/20 05:00 Pulse Ox 96 03/30/20 05:00 Intake & Output 03/29/20 03/30/20 03/30/20 18:59 06:59 18:59 Output Total 300 500 Balance -300 -500 Weight 77.111 kg 76.5 kg Output: Gastric Drainage 0 Urine 300 500 Uretheral (Simon) 500 Other: Voiding Method Indwelling Catheter Indwelling Catheter # Voids 1 - Labs CBC & Chem 7: 03/30/20 05:53 03/30/20 05:53 Labs: Abnormal Lab Results - Last 24 Hours (Table) 03/29/20 03/29/20 03/30/20 Range/Units 17:57 23:16 05:35 WBC (3.8-10.6) k/uL Hgb (11.4-16.0) gm/dL Neutrophils # (1.3-7.7) k/uL BUN (7-17) mg/dL Glucose (74-99) mg/dL POC Glucose (mg/dL) 171 H 157 H 164 H (75-99) mg/dL Phosphorus (2.5-4.5) mg/dL Albumin (3.5-5.0) g/dL 03/30/20 03/30/20 Range/Units 05:53 05:53 WBC 11.9 H (3.8-10.6) k/uL Hgb 11.2 L (11.4-16.0) gm/dL Neutrophils # 9.3 H (1.3-7.7) k/uL BUN 22 H (7-17) mg/dL Glucose 163 H (74-99) mg/dL POC Glucose (mg/dL) (75-99) mg/dL Phosphorus 1.8 L (2.5-4.5) mg/dL Albumin 2.7 L (3.5-5.0) g/dL Assessment and Plan Plan: Assessment: 1. Acute kidney injury mostly prerenal improved with IV hydration. Creatinine peaked at 1.29 this admission and is 0.91 today. 2. Gastric outlet obstruction status post NG tube placement and g astrojejunostomy. 3. Mild metabolic acidosis secondary to acute kidney injury and IV fluids. better. 4. Hypophosphatemia from poor oral intake. Plan: Discontinue normal saline. Maintain TPN. Phosphorus to be adjusted in the TPN. Also being replaced.
[2020-03-30] MEDS: MVI, ADULT NO.4 WITH VIT K 10 ML, TRACE (CONC-1ML/DOSE) 1 ML in AMINO ACID 4.25%-D10W+L... IV SCH ×3 (10:40)
[2020-03-30] MEDS: SODIUM PHOSPHATE 10 MMOL in SODIUM CHLORIDE 0.9% 250 ML IVPB SCH ×2 (10:59→13:14)
[2020-03-30 11:08] LABS: Glucose,Whole Blood 134 mg/dL (75-99)
[2020-03-30] MEDS: NITROGLYCERIN OINT 1 INCH/GM PACKET TOPICAL SCH ×2 (11:47→16:54)
[2020-03-30] MEDS: FAT EMULSION 20% 250 ML in EMPTY BAG 1 BAG IV SCH (13:14)
--- NOTE | 2020-03-30 15:35 | P.PN ---
Subjective Progress Note Date: 03/30/20 CHIEF COMPLAINT: Gastric outlet obstruction HISTORY OF PRESENT ILLNESS: Patient is status post gastrojejunostomy with Dr. Livingston. Postop day #2. Patient examined at the bedside with Dr. Livingston. Patient reports her pain is tolerable. NG tube remains intact to low intermittent suction. Patient reports passing flatus. PHYSICAL EXAM: VITAL SIGNS: Reviewed. GENERAL: Well-developed in no acute distress. HEENT: No sclera icterus. Extraocular movements grossly intact. Moist buccal mucosa. Head is atraumatic, normocephalic. ABDOMEN: Soft. Nondistended. Dressing clean dry and intact.. Abdominal binder noted. NG tube to LIS. NEUROLOGIC: Alert and oriented. Cranial nerves II through XII grossly intact. ASSESSMENT: 1. Gastric outlet obstruction, status post gastrojejunostomy PLAN: -Discontinue NG tube -Begin clear liquid diet -Continue TPN -Incentive spirometer -Activity as tolerated Nurse practitioner note has been reviewed by physician. Signing provider agrees with the documented findings, assessment, and plan of care. Objective - Vital Signs Vital signs: Vital Signs Temp 98.3 F 03/30/20 11:33 Pulse 79 03/30/20 11:33 Resp 17 03/30/20 11:33 BP 181/76 03/30/20 11:33 Pulse Ox 98 03/30/20 11:33 Intake & Output 03/29/20 03/30/20 03/30/20 18:59 06:59 18:59 Intake Total 946.667 Output Total 300 500 Balance -300 -500 946.667 Weight 77.111 kg 76.5 kg Intake: Intake, IV Titration 946.667 Amount Mvi, Adult No.4 with Vit 946.667 K 10 ml Trace (Conc-1Ml/ Dose) 1 ml In Amino Acid 4.25%-D10w+Lytes*E* 1,000 ml @ 50 mls/hr IV . [id number] [facility] Rx#:[id number] Output: Gastric Drainage 0 Urine 300 500 Uretheral (Simon) 500 Other: Voiding Method Indwelling Catheter Indwelling Catheter # Voids 1 - Labs CBC & Chem 7: 03/30/20 05:53 03/30/20 05:53 Labs: Abnormal Lab Results - Last 24 Hours (Table) 03/29/20 03/29/2020 Range/Units 17:57 23:16 05:35 WBC (3.8-10.6) k/uL Hgb (11.4-16.0) gm/dL Neutrophils # (1.3-7.7) k/uL BUN (7-17) mg/dL Glucose (74-99) mg/dL POC Glucose (mg/dL) 171 H 157 H 164 H (75-99) mg/dL Phosphorus (2.5-4.5) mg/dL Albumin (3.5-5.0) g/dL 03/30/20 03/30/20 03/30/20 Range/Units 05:53 05:53 11:07 WBC 11.9 H (3.8-10.6) k/uL Hgb 11.2 L (11.4-16.0) gm/dL Neutrophils # 9.3 H (1.3-7.7) k/uL BUN 22 H (7-17) mg/dL Glucose 163 H (74-99) mg/dL POC Glucose (mg/dL) 134 H (75-99) mg/dL Phosphorus 1.8 L (2.5-4.5) mg/dL Albumin 2.7 L (3.5-5.0) g/dL
[2020-03-30 17:21] LABS: Glucose,Whole Blood 137 mg/dL (75-99)
--- NOTE | 2020-03-30 19:15 | P.PN ---
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 Computed tomography scan of the abdomen showing gastric outlet obstruction. EGD was scheduled Dr. Livingston on March 27. Found to have gastric outlet obstruction due to extensive peptic ulcer disease and scarring in the first part of duodenum. March 28 patient underwent a gastrojejunostomy. Today-abdominal pain is tolerable. Has an NG tube to low intermittent suction. passed flatus. Review of systems: Was done for constitutional, cardiovascular, GI, pulmonary. relevant finding as above Active Medications Clonidine HCl (Catapres-Tts 0.2mg Patch) 1 patch TRANSDERM Q7D [facility] Last Admin: 03/29/20 23:54 Dose: 1 patch Documented by: Enoxaparin Sodium (Lovenox) 40 mg SQ DAILY [facility] Last Admin: 03/30/20 07:40 Dose: 40 mg Documented by: Hydromorphone HCl (Dilaudid) 0.5 mg IVP Q3HR PRN PRN Reason: Moderate to Severe Pain Last Admin: 03/29/20 19:39 Dose: 0.5 mg Documented by: Levofloxacin/Dextrose 250 mg/ (IV Solution) 50 mls @ 50 mls/hr IVPB DAILY [facility] Last Admin: 03/30/20 07:40 Dose: 50 mls/hr Documented by: Parenteral Vitamin Supplement 10 ml/ Chromium/Copper/Manganese/Seleni/Zn 1 ml/Amino Ac/Electrol/Dextrose/Calcium 1,011 mls @ 50 mls/hr IV .[id number] [facility] Last Admin: 03/30/20 10:40 Dose: 50 mls/hr Documented by: Fat Emulsion Intravenous 250 (ml/ IV Solution) 250 mls @ 21 mls/hr IV Q24H [facility] Last Admin: 03/30/20 13:14 Dose: 21 mls/hr Documented by: Insulin Aspart (Novolog) 0 unit SQ Q6H [facility]; Protocol Last Admin: 03/30/20 17:47 Dose: 1 unit Documented by: Lidocaine HCl (.Xylocaine 1% Inj (10mg/Ml) For Iv Start) 0.1 ml INTRADERMA PER PROTOCOL PRN PRN Reason: IV Start Lorazepam (Ativan) 0.25 mg IV Q4HR PRN PRN Reason: Anxiety Last Admin: 03/27/20 00:47 Dose: 0.25 mg Documented by: Metoclopramide HCl (Reglan) 10 mg IVP Q6H PRN PRN Reason: Nausea And Vomiting Miscellaneous Information (Potassium Per Protocol) 1 each MISCELLANE DAILY PRN; Protocol PRN Reason: Per Protocol Miscellaneous Information (Phosphorus Per Protocol) 1 each MISCELLANE DAILY PRN; Protocol PRN Reason: Per Protocol Morphine Sulfate (Morphine Sulfate (Inj)) 2 mg IV Q4HR PRN PRN Reason: Severe Pain Naloxone HCl (Narcan) 0.2 mg IV Q2M PRN PRN Reason: Opioid Reversal Nitroglycerin (Nitro-Bid Oint) 1 inch TOPICAL Q6HR [facility] Last Admin: 03/30/20 16:54 Dose: 1 inch Documented by: Ondansetron HCl (Zofran) 4 mg IVP Q8HR PRN PRN Reason: Nausea And Vomiting Pantoprazole Sodium (Protonix) 40 mg IVP BID [facility] Last Admin: 03/30/20 07:40 Dose: 40 mg Documented by: Sodium Chloride (Saline Flush) 10 ml IV Q4HR PRN PRN Reason: PICC Line Sodium Chloride (Saline Flush) 10 ml IV WEEKLY [facility] Sodium Chloride (Saline Flush) 20 ml IV Q4HR PRN PRN Reason: PICC Line On examination: VITAL SIGNS: 98.3, 79, 17, 181/76, 98% room air GENERAL APPEARANCE: Propped up in bed, awake. HEENT: Normal external appearance of nose and ear. Oral cavity-dry with NG tube to suction EYES: Pupils equal. Conjunctiva normal. NECK: JVD not raised. Mass not palpable. RESPIRATORY: Respiratory effort normal. Lungs clear to auscultation. CARDIOVASCULAR: First and second sounds normal. No edema. ABDOMEN: Soft. Some tenderness. Binder in place. No mass palpable. PSYCHIATRY: Alert and oriented x3. Mood and affect normal. Assessment: -Acute gastric outlet obstruction secondary to peptic ulcer disease in the first portion of duodenum -Severe peptic ulcer disease causing severe duodenitis -Procedure-gastrojejunostomy -Essential hypertension-uncontrolled Plan: Patient is seen by surgery. Plan is to discontinue NG tube. Start the patient on TPN and lipids. Patient also getting IV Levaquin. For blood pressure that I Catapres patch. And also nitro ointment. Discussed with the patient. Thank you Dr. Livingston
[2020-03-31 00:08] LABS: Glucose,Whole Blood 138 mg/dL (75-99)
[2020-03-31] MEDS: NITROGLYCERIN OINT 1 INCH/GM PACKET TOPICAL SCH ×4 (00:11→17:17)
[2020-03-31] MEDS: INSULIN ASPART (NovoLOG) 100 UNIT/ML VIAL SQ SCH ×4 (00:11→17:15)
[2020-03-31] MEDS: MVI, ADULT NO.4 WITH VIT K 10 ML, TRACE (CONC-1ML/DOSE) 1 ML in AMINO ACID 4.25%-D10W+L... IV SCH ×3 (05:54)
[2020-03-31 06:25] LABS: Glucose,Whole Blood 122 mg/dL (75-99)
[2020-03-31 06:51] LABS: Calcium 8.5 mg/dL (8.4-10.2); Magnesium 1.8 mg/dL (1.6-2.3); Phosphorus 2.9 mg/dL (2.5-4.5); Potassium 3.2 mmol/L (3.5-5.1)
[2020-03-31 06:54] LABS: HCT 32.3 % (34.0-46.0); HGB 10.4 gm/dL (11.4-16.0); Hypochromasia Slight; MCH 27.5 pg (25.0-35.0); MCHC 32.3 g/dL (31.0-37.0); Mean Platelet Volume 8.4; Platelet Count 252 k/uL (150-450); RDW 13.7 % (11.5-15.5); WBC 10.9 k/uL (3.8-10.6)
[2020-03-31] MEDS ORDERED: Potassium Replacement Protocol 1 EACH MISC MISCELLANE PRN (08:59)
[2020-03-31] MEDS: PANTOPRAZOLE 40 MG/10 ML VIAL IVP SCH (09:52)
[2020-03-31] MEDS: LEVOFLOXACIN 250MG-D5W PMX 250 MG in DEXTROSE/WATER 1 50ML.BAG IVPB SCH (09:52)
[2020-03-31] MEDS: ENOXAPARIN 40 MG/0.4 ML SYRINGE SQ SCH (09:52)
[2020-03-31] MEDS: POTASSIUM CHLORIDE ER 20 MEQ TAB.ER PO SCH ×2 (09:52→11:59)
[2020-03-31 10:15] LABS: Eosinophils # (M) 0.11 k/uL (0-0.7); Lymphocytes # (M) 1.53 k/uL (1.0-4.8); Monocytes # (M) 0.98 k/uL (0-1.0); Neutrophils # (M) 8.28 k/uL (1.3-7.7); Neutrophils % (M) 76 %; Nucleated Red Blood Cells 0 /100 WBC (0-0); Total Cells Counted 100
[2020-03-31] MEDS ORDERED: HYDROcodone/APAP 5-325MG 1 EACH TAB PO PRN (10:22)
[2020-03-31 11:21] LABS: Glucose,Whole Blood 140 mg/dL (75-99)
--- NOTE | 2020-03-31 11:25 | P.PN ---
Subjective Patient is seen in follow for acute kidney injury. Renal function is back to baseline. She is receiving TPN. Denies chest pain or shortness of breath. Tolerating clear liquid diet. NG tube removed. Vital signs are stable. General: The patient appeared well nourished and normally developed. HEENT: Head exam is unremarkable. Neck is without jugular venous distension. LUNGS: Lungs are clear to auscultation and percussion. Breath sounds decreased. HEART: Rate and Rhythm are regular. ABDOMEN: Generalized discomfort. No distention. EXTREMITITES: No clubbing, cyanosis, or edema. Objective - Vital Signs Vital signs: Vital Signs Temp 99.0 F 03/31/20 04:48 Pulse 79 03/31/20 04:48 Resp 16 03/31/20 04:48 BP 146/56 03/31/20 04:48 Pulse Ox 95 03/31/20 04:48 Intake & Output 03/30/20 03/31/20 03/31/20 18:59 06:59 18:59 Intake Total 647.060 1015.667 Output Total 300 950 Balance 646.667 211.667 Weight 77.5 kg 77.5 kg Intake: Intake, IV Titration 043.800 3188.667 Amount Fat Emulsion 20% 250 ml 80 In Empty Bag 1 bag @ 21 mls/hr IV Q24H [facility] Rx#: [id number] Mvi, Adult No.4 with Vit 946.667 961.667 K 10 ml Trace (Conc-1Ml/ Dose) 1 ml In Amino Acid 4.25%-D10w+Lytes*E* 1,000 ml @ 50 mls/hr IV . [id number] [facility] Rx#:[id number] Oral 120 Output: Urine 300 950 Other: Voiding Method Indwelling Catheter Indwelling Catheter # Voids 1 - Labs CBC & Chem 7: 03/31/20 05:57 03/31/20 05:57 Labs: Abnormal Lab Results - Last 24 Hours (Table) 03/30/20 03/31/20 03/31/20 Range/Units 17:19 00:07 05:57 WBC 10.9 H (3.8-10.6) k/uL Hgb 10.4 L (11.4-16.0) gm/dL Hct 32.3 L (34.0-46.0) % Neutrophils # (Manual) 8.28 H (1.3-7.7) k/uL Sodium (137-145) mmol/L Potassium (3.5-5.1) mmol/L BUN (7-17) mg/dL Glucose (74-99) mg/dL POC Glucose (mg/dL) 137 H 138 H (75-99) mg/dL 03/31/20 03/31/20 03/31/20 Range/Units 05:57 06:24 11:20 WBC (3.8-10.6) k/uL Hgb (11.4-16.0) gm/dL Hct (34.0-46.0) % Neutrophils # (Manual) (1.3-7.7) k/uL Sodium 136 L (137-145) mmol/L Potassium 3.2 L (3.5-5.1) mmol/L BUN 20 H (7-17) mg/dL Glucose 115 H (74-99) mg/dL POC Glucose (mg/dL) 122 H 140 H (75-99) mg/dL Assessment and Plan Plan: Assessment: 1. Acute kidney injury mostly prerenal improved with IV hydration. Creatinine peaked at 1.29 this admission and is back to baseline. Creatinine 1.03 today. 2. Gastric outlet obstruction status post NG tube placement and gastrojejunostomy. 3. Mild metabolic acidosis secondary to acute kidney injury and IV fluids. better. 4. Hypophosphatemia from poor oral intake. Improved post replacement. 5. Hypokalemia from poor oral intake. Plan: Maintain TPN. Diet to be advanced per surgery. Potassium being replaced. Will sign off. Please call with any further questions.
--- NOTE | 2020-03-31 14:15 | P.PN ---
Subjective Progress Note Date: 03/31/20 CHIEF COMPLAINT: Gastric outlet obstruction HISTORY OF PRESENT ILLNESS: Patient is status post gastrojejunostomy with Dr. Livingston. Postop day #3. Patient examined at the bedside with Dr. Livingston. Patient reports her pain is tolerable. NG tube has been removed. She is tolerating clear liquid diet. PHYSICAL EXAM: VITAL SIGNS: Reviewed. GENERAL: Well-developed in no acute distress. HEENT: No sclera icterus. Extraocular movements grossly intact. Moist buccal mucosa. Head is atraumatic, normocephalic. ABDOMEN: Soft. Nondistended. Dressing clean dry and intact.. Abdominal binder noted. NEUROLOGIC: Alert and oriented. Cranial nerves II through XII grossly intact. ASSESSMENT: 1. Gastric outlet obstruction, status post gastrojejunostomy PLAN: -Advance diet to full liquids -Continue TPN -Incentive spirometer -Activity as tolerated Nurse practitioner note has been reviewed by physician. Signing provider agrees with the documented findings, assessment, and plan of care. Objective - Vital Signs Vital signs: Vital Signs Temp 99.0 F 03/31/20 04:48 Pulse 79 03/31/20 04:48 Resp 16 03/31/20 04:48 BP 146/56 03/31/20 04:48 Pulse Ox 95 03/31/20 04:48 Intake & Output 03/30/20 03/31/20 03/31/20 18:59 06:59 18:59 Intake Total 132.447 1653.667 Output Total 300 950 Balance 646.667 211.667 Weight 77.5 kg 77.5 kg Intake: Intake, IV Titration 986.245 9181.667 Amount Fat Emulsion 20% 250 ml 80 In Empty Bag 1 bag @ 21 mls/hr IV Q24H [facility] Rx#: [id number] Mvi, Adult No.4 with Vit 946.667 961.667 K 10 ml Trace (Conc-1Ml/ Dose) 1 ml In Amino Acid 4.25%-D10w+Lytes*E* 1,000 ml @ 50 mls/hr IV . [id number] [facility] Rx#:[id number] Oral 120 Output: Urine 300 950 Other: Voiding Method Indwelling Catheter Indwelling Catheter # Voids 1 - Labs CBC & Chem 7: 03/31/20 05:57 03/31/20 05:57 Labs: Abnormal Lab Results - Last 24 Hours (Table) 03/30/20 03/30/20 03/31/20 Range/Units 11:07 17:19 00:07 WBC (3.8-10.6) k/uL Hgb (11.4-16.0) gm/dL Hct (34.0-46.0) % Neutrophils # (Manual) (1.3-7.7) k/uL Sodium (137-145) mmol/L Potassium (3.5-5.1) mmol/L BUN (7-17) mg/dL Glucose (74-99) mg/dL POC Glucose (mg/dL) 134 H 137 H 138 H (75-99) mg/dL 03/31/20 03/31/20 03/31/20 Range/Units 05:57 05:57 06:24 WBC 10.9 H (3.8-10.6) k/uL Hgb 10.4 L (11.4-16.0) gm/dL Hct 32.3 L (34.0-46.0) % Neutrophils # (Manual) 8.28 H (1.3-7.7) k/uL Sodium 136 L (137-145) mmol/L Potassium 3.2 L (3.5-5.1) mmol/L BUN 20 H (7-17) mg/dL Glucose 115 H (74-99) mg/dL POC Glucose (mg/dL) 122 H (75-99) mg/dL
[2020-03-31] MEDS: FAT EMULSION 20% 250 ML in EMPTY BAG 1 BAG IV SCH (14:35)
[2020-03-31 17:11] LABS: Glucose,Whole Blood 118 mg/dL (75-99)
--- NOTE | 2020-03-31 19:46 | P.PN ---
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 Computed tomography scan of the abdomen showing gastric outlet obstruction. EGD was scheduled Dr. Livingston on March 27. Found to have gastric outlet obstruction due to extensive peptic ulcer disease and scarring in the first part of duodenum. March 28 patient underwent a gastrojejunostomy. Today-NG tube is out. As of yesterday. Has positive flatus. Feels better. No nausea vomiting. Pain control. On a full liquid diet. On TPN and lipids. Review of systems: Was done for constitutional, cardiovascular, GI, pulmonary. relevant finding as above Active Medications Hydrocodone Bitart/Acetaminophen ([place] 5-325) 1 each PO Q4HR PRN PRN Reason: Pain Clonidine HCl (Catapres-Tts 0.2mg Patch) 1 patch TRANSDERM Q7D [facility] Last Admin: 03/29/20 23:54 Dose: 1 patch Documented by: Enoxaparin Sodium (Lovenox) 40 mg SQ DAILY [facility] Last Admin: 03/31/20 09:52 Dose: 40 mg Documented by: Hydromorphone HCl (Dilaudid) 0.5 mg IVP Q3HR PRN PRN Reason: Moderate to Severe Pain Last Admin: 03/29/20 19:39 Dose: 0.5 mg Documented by: Levofloxacin/Dextrose 250 mg/ (IV Solution) 50 mls @ 50 mls/hr IVPB DAILY [facility] Last Admin: 03/31/20 09:52 Dose: 50 mls/hr Documented by: Parenteral Vitamin Supplement 10 ml/ Chromium/Copper/Manganese/Seleni/Zn 1 ml/Amino Ac/Electrol/Dextrose/Calcium 1,011 mls @ 50 mls/hr IV .[id number] [facility] Last Admin: 03/31/20 05:54 Dose: 50 mls/hr Documented by: Fat Emulsion Intravenous 250 (ml/ IV Solution) 250 mls @ 21 mls/hr IV Q24H [facility] Last Admin: 03/31/20 14:35 Dose: 21 mls/hr Documented by: Insulin Aspart (Novolog) 0 unit SQ Q6H [facility]; Protocol Last Admin: 03/31/20 17:15 Dose: Not Given Documented by: Lidocaine HCl (.Xylocaine 1% Inj (10mg/Ml) For Iv Start) 0.1 ml INTRADERMA PER PROTOCOL PRN PRN Reason: IV Start Lorazepam (Ativan) 0.25 mg IV Q4HR PRN PRN Reason: Anxiety Last Admin: 03/27/20 00:47 Dose: 0.25 mg Documented by: Metoclopramide HCl (Reglan) 10 mg IVP Q6H PRN PRN Reason: Nausea And Vomiting Miscellaneous Information (Phosphorus Per Protocol) 1 each MISCELLANE DAILY PRN; Protocol PRN Reason: Per Protocol Miscellaneous Information (Potassium Per Protocol) 1 each MISCELLANE DAILY PRN; Protocol PRN Reason: Per Protocol Morphine Sulfate (Morphine Sulfate (Inj)) 2 mg IV Q4HR PRN PRN Reason: Severe Pain Naloxone HCl (Narcan) 0.2 mg IV Q2M PRN PRN Reason: Opioid Reversal Nitroglycerin (Nitro-Bid Oint) 1 inch TOPICAL Q6HR [facility] Last Admin: 03/31/20 17:17 Dose: 1 inch Documented by: Ondansetron HCl (Zofran) 4 mg IVP Q8HR PRN PRN Reason: Nausea And Vomiting Pantoprazole Sodium (Protonix) 40 mg IVP BID [facility] Last Admin: 03/31/20 09:52 Dose: 40 mg Documented by: Sodium Chloride (Saline Flush) 10 ml IV Q4HR PRN PRN Reason: PICC Line Sodium Chloride (Saline Flush) 10 ml IV WEEKLY [facility] Sodium Chloride (Saline Flush) 20 ml IV Q4HR PRN PRN Reason: PICC Line On examination: VITAL SIGNS: 98, 70, 17, 151/67, 96% room air GENERAL APPEARANCE: Sitting up in a chair, appears better HEENT: Normal external appearance of nose and ear. Oral cavity-dry. NG tube discontinued EYES: Pupils equal. Conjunctiva normal. NECK: JVD not raised. Mass not palpable. RESPIRATORY: Respiratory effort normal. Lungs clear to auscultation. CARDIOVASCULAR: First and second sounds normal. No edema. ABDOMEN: Soft. Some tenderness. Binder in place. No mass palpable. PSYCHIATRY: Alert and oriented x3. Mood and affect normal. INVESTIGATIONS, reviewed in the clinical context: White count 10.9 hemoglobin 10.4 progression 3.2 creatinine 1.03 Assessment: -Acute gastric outlet obstruction secondary to peptic ulcer disease in the first portion of duodenum -Severe peptic ulcer disease causing severe duodenitis -Procedure-gastrojejunostomy -Essential better controlled -Hypokalemia Plan: We'll start the patient on Vasotec hydrochlorothiazide twice daily. ISAAC Catapres patch. Also had low-dose Lopressor Thank you Dr. Livingston
[2020-03-31] MEDS: METOPROLOL TARTRATE 25 MG TAB PO SCH (21:02)
[2020-03-31] MEDS: LISINOPRIL-HCTZ 20-12.5 MG 1 EACH TAB PO SCH (21:02)
[2020-04-01 00:17] LABS: Glucose,Whole Blood 127 mg/dL (75-99)
[2020-04-01] MEDS: INSULIN ASPART (NovoLOG) 100 UNIT/ML VIAL SQ SCH ×4 (00:20→17:20)
[2020-04-01] MEDS: NITROGLYCERIN OINT 1 INCH/GM PACKET TOPICAL SCH ×4 (00:20→17:20)
[2020-04-01] MEDS: MVI, ADULT NO.4 WITH VIT K 10 ML, TRACE (CONC-1ML/DOSE) 1 ML in AMINO ACID 4.25%-D10W+L... IV SCH ×3 (01:13)
[2020-04-01 05:42] LABS: Glucose,Whole Blood 109 mg/dL (75-99)
[2020-04-01 06:51] LABS: Calcium 8.2 mg/dL (8.4-10.2); Magnesium 1.7 mg/dL (1.6-2.3); Phosphorus 2.8 mg/dL (2.5-4.5); Potassium 3.5 mmol/L (3.5-5.1)
[2020-04-01] MEDS: LEVOFLOXACIN 250MG-D5W PMX 250 MG in DEXTROSE/WATER 1 50ML.BAG IVPB SCH (08:37)
[2020-04-01] MEDS: METOPROLOL TARTRATE 25 MG TAB PO SCH ×2 (08:38→19:49)
[2020-04-01] MEDS: LISINOPRIL-HCTZ 20-12.5 MG 1 EACH TAB PO SCH ×2 (08:38→19:49)
[2020-04-01] MEDS: ENOXAPARIN 40 MG/0.4 ML SYRINGE SQ SCH (08:38)
[2020-04-01] MEDS: PANTOPRAZOLE 40 MG TABLET PO SCH ×2 (08:38→17:23)
[2020-04-01] MEDS: MAGNESIUM SULFATE-D5W PMX 1 GM in DEXTROSE/WATER 1 100ML.BAG IVPB SCH ×2 (11:37→12:50)
[2020-04-01] MEDS: POTASSIUM CHLORIDE ER 20 MEQ TAB.ER PO SCH ×2 (11:37→12:50)
[2020-04-01 12:41] LABS: Glucose,Whole Blood 135 mg/dL (75-99)
--- NOTE | 2020-04-01 13:23 | P.PN ---
Subjective Progress Note Date: 04/01/20 CHIEF COMPLAINT: Gastric outlet obstruction HISTORY OF PRESENT ILLNESS: The patient is an 80-year-old female with history of gastric outlet obstruction. She status post gastrojejunostomy, 03/28/20. Her abd ominal pain improved. She is tolerating diet. She denies nausea. She is sitting up in the chair. No present abdominal pain ROS: No fevers or chills. No new chest pain. No productive sputum PHYSICAL EXAM: VITAL SIGNS: Reviewed CONSTITUTIONAL: Well developed and in no acute distress. EYES: Conjuctivae without sclera icterus. Extraocular movements grossly intact. HEAD, EARS, NOSE, THROAT: Moist buccal mucosa. Head is atraumatic, normocephalic. Hears conversational speech. No nasal drainage. NECK: Supple. No thyroidomegaly. RESPIRATORY: Non-labored respirations and equal bilateral excursions. CARDIOVASCULAR: Palpable 2+ radial pulses. Regular rate. Regular rhythm. ABDOMEN: Incisions clean dry and intact. Soft. No peritonitis. MUSCULOSKELETAL: No gross deformity of the lower extremities noted. No clubbing. No cyanosis. SKIN: Good skin turgor. Well perfused. NEUROLOGIC: Cranial nerves II through XII grossly intact. No focal or lateralizing signs. PSYCH: Appropriate affect. Alert and oriented to person, place and time. CLINICAL LABS: No new labs. Previous WBC down from 11.9 to 10.9 from prior. ASSESSMENT: 1. Gastric outlet obstruction PLAN: 1. Continue clear liquid diet 2. Repeat CBC and comprehensive metabolic panel Objective - Vital Signs Vital signs: Vital Signs Temp 97.8 F 04/01/20 12:24 Pulse 70 04/01/20 12:24 Resp 21 04/01/20 12:24 BP 133/67 04/01/20 12:24 Pulse Ox 97 04/01/20 12:24 Intake & Output 03/31/20 04/01/20 04/01/20 18:59 06:59 18:59 Intake Total 965.833 Output Total 950 2650 Balance -950 -1684.167 Weight 77.5 kg 77 kg Intake: Intake, IV Titration 965.833 Amount Mvi, Adult No.4 with Vit 965.833 K 10 ml Trace (Conc-1Ml/ Dose) 1 ml In Amino Acid 4.25%-D10w+Lytes*E* 1,000 ml @ 50 mls/hr IV . [id number] [facility] Rx#:[id number] Output: Urine 950 2650 Uretheral (Simon) 1700 Other: Voiding Method Indwelling Catheter Indwelling Catheter Indwelling Catheter # Voids 1 1 - Labs CBC & Chem 7: 03/31/20 05:57 04/01/20 06:19 Labs: Abnormal Lab Results - Last 24 Hours (Table) 03/31/20 04/01/20 04/01/20 Range/Units 17:10 00:16 05:40 Sodium (137-145) mmol/L BUN (7-17) mg/dL Glucose (74-99) mg/dL POC Glucose (mg/dL) 118 H 127 H 109 H (75-99) mg/dL Calcium (8.4-10.2) mg/dL 04/01/20 04/01/20 Range/Units 06:19 12:39 Sodium 134 L (137-145) mmol/L BUN 20 H (7-17) mg/dL Glucose 113 H (74-99) mg/dL POC Glucose (mg/dL) 135 H (75-99) mg/dL Calcium 8.2 L (8.4-10.2) mg/dL Assessment and Plan (1) Peptic ulcer Current Visit: Yes Status: Acute Code(s): K27.9 - PEPTIC ULC, SITE UNSP, UNSP AC OR CHR, W/O HEMOR OR PERF SNOMED Code(s): 15147009 (2) Duodenitis Current Visit: Yes Status: Acute Code(s): K29.80 - DUODENITIS WITHOUT BLEEDING SNOMED Code(s): 06577843 (3) Gastric outlet obstruction Current Visit: Yes Status: Acute Code(s): K31.1 - ADULT HYPERTROPHIC PYLORIC STENOSIS SNOMED Code(s): 033534842
[2020-04-01] MEDS: FAT EMULSION 20% 250 ML in EMPTY BAG 1 BAG IV SCH (14:45)
[2020-04-01 17:13] LABS: Glucose,Whole Blood 119 mg/dL (75-99)
--- NOTE | 2020-04-01 17:34 | PN ---
PROGRESS NOTE Patient is seen for followup for acute kidney injury. Her renal function has improved. Serum creatinine is down to 0.94. Currently patient is sitting up in a bedside chair. She is comfortable. She is maintained on TPN. She she has had good urine output. She has an indwelling Simon catheter. PHYSICAL EXAMINATION: On examination today, blood pressure was 170/79, heart rate 75 per minute, patient is afebrile. Examination of the heart S1, S2. Examination of the lungs, decreased breath sounds at bases. Abdomen is soft, nontender. Examination of lower extremities shows trace edema bilaterally. [employer] exam grossly intact. LAB: Show sodium 134, potassium 3.5, chloride 102, CO2 is 28, BUN 20, creatinine 0.94. ASSESSMENT: 1. Acute kidney injury, nonoliguric, currently improved, mostly prerenal. 2. Gastric outlet obstruction status post NG tube placement and gastrojejunostomy. 3. Mild metabolic acidosis. 4. Hypokalemia, currently improved. 5. Mild hyponatremia, fairly stable. Serum sodium has decreased to 134 from 136. PLAN: Adjust sodium in the TPN if serum sodium drops further. May continue with the MEENA inhibitors. MMODL / IJN: [id number] /
--- NOTE | 2020-04-01 19:54 | P.PN ---
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 Computed tomography scan of the abdomen showing gastric outlet obstruction. EGD was scheduled Dr. Livingston on March 27. Found to have gastric outlet obstruction due to extensive peptic ulcer disease and scarring in the first part of duodenum. March 28 patient underwent a gastrojejunostomy. NG tube was placed and then discontinued. Started on TPN and lipids. Today-positive flatus. Pain control. Her nausea vomiting. No full liquid diet. Review of systems: Was done for constitutional, cardiovascular, GI, pulmonary. relevant finding as above Active Medications Hydrocodone Bitart/Acetaminophen ([place] 5-325) 1 each PO Q4HR PRN PRN Reason: Pain Enoxaparin Sodium (Lovenox) 40 mg SQ DAILY [facility] Last Admin: 04/01/20 08:38 Dose: 40 mg Documented by: Lisinopril/HCTZ (Zestoretic 20-12.5) 1 each PO BID [facility] Last Admin: 04/01/20 19:49 Dose: 1 each Documented by: Hydromorphone HCl (Dilaudid) 0.5 mg IVP Q3HR PRN PRN Reason: Moderate to Severe Pain Last Admin: 03/29/20 19:39 Dose: 0.5 mg Documented by: Levofloxacin/Dextrose 250 mg/ (IV Solution) 50 mls @ 50 mls/hr IVPB DAILY [facility] Last Admin: 04/01/20 08:37 Dose: 50 mls/hr Documented by: Parenteral Vitamin Supplement 10 ml/ Chromium/Copper/Manganese/Seleni/Zn 1 ml/Amino Ac/Electrol/Dextrose/Calcium 1,011 mls @ 50 mls/hr IV .[id number] [facility] Stop: 04/01/20 20:59 Last Admin: 04/01/20 01:13 Dose: 50 mls/hr Documented by: Fat Emulsion Intravenous 250 (ml/ IV Solution) 250 mls @ 21 mls/hr IV Q24H [facility] Last Admin: 04/01/20 14:45 Dose: 21 mls/hr Documented by: Parenteral Vitamin Supplement 10 ml/ Chromium/Copper/Manganese/Seleni/Zn 1 ml/Potassium Chloride 20 meq/Magnesium Sulfate 1 gm/ Amino Ac/Electrol/Dextrose/Calcium 1,023 mls @ 50 mls/hr IV .[id number] [facility] Insulin Aspart (Novolog) 0 unit SQ Q6H [facility]; Protocol Last Admin: 04/01/20 17:20 Dose: Not Given Documented by: Lidocaine HCl (.Xylocaine 1% Inj (10mg/Ml) For Iv Start) 0.1 ml INTRADERMA PER PROTOCOL PRN PRN Reason: IV Start Lorazepam (Ativan) 0.25 mg IV Q4HR PRN PRN Reason: Anxiety Last Admin: 03/27/20 00:47 Dose: 0.25 mg Documented by: Metoclopramide HCl (Reglan) 10 mg IVP Q6H PRN PRN Reason: Nausea And Vomiting Metoprolol Tartrate (Lopressor) 25 mg PO BID [facility] Last Admin: 04/01/20 19:49 Dose: 25 mg Documented by: Miscellaneous Information (Phosphorus Per Protocol) 1 each MISCELLANE DAILY PRN; Protocol PRN Reason: Per Protocol Miscellaneous Information (Potassium Per Protocol) 1 each MISCELLANE DAILY PRN; Protocol PRN Reason: Per Protocol Morphine Sulfate (Morphine Sulfate (Inj)) 2 mg IV Q4HR PRN PRN Reason: Severe Pain Naloxone HCl (Narcan) 0.2 mg IV Q2M PRN PRN Reason: Opioid Reversal Nitroglycerin (Nitro-Bid Oint) 1 inch TOPICAL Q6HR [facility] Last Admin: 04/01/20 17:20 Dose: Not Given Documented by: Ondansetron HCl (Zofran) 4 mg IVP Q8HR PRN PRN Reason: Nausea And Vomiting Pantoprazole Sodium (Protonix) 40 mg PO AC-BID [facility] Last Admin: 04/01/20 17:23 Dose: 40 mg Documented by: Sodium Chloride (Saline Flush) 10 ml IV Q4HR PRN PRN Reason: PICC Line Sodium Chloride (Saline Flush) 10 ml IV WEEKLY [facility] Sodium Chloride (Saline Flush) 20 ml IV Q4HR PRN PRN Reason: PICC Line On examination: VITAL SIGNS: 97.8, 70, 21, 133/67, 97% on room air GENERAL APPEARANCE: Sitting up in a chair, HEENT: Normal external appearance of nose and ear. Oral cavity-dry. NG tube discontinued EYES: Pupils equal. Conjunctiva normal. NECK: JVD not raised. Mass not palpable. RESPIRATORY: Respiratory effort normal. Lungs clear to auscultation. CARDIOVASCULAR: First and second sounds normal. No edema. ABDOMEN: Soft. Some tenderness. Binder in place. No mass palpable. PSYCHIATRY: Alert and oriented x3. Mood and affect normal. INVESTIGATIONS, reviewed in the clinical context: Potassium 3.5 creatinine 0.94 Assessment: -Acute gastric outlet obstruction secondary to peptic ulcer disease in the first portion of duodenum -Severe peptic ulcer disease causing severe duodenitis -Procedure-gastrojejunostomy -Essential hypertension better controlled -Hypokalemia Plan: Care was discussed with the patient. Continue current medication treatment plan. Thank you Dr. Livingston
[2020-04-01] MEDS: MVI, ADULT NO.4 WITH VIT K 10 ML, TRACE (CONC-1ML/DOSE) 1 ML, POTASSIUM CHLORIDE 20 MEQ... IV SCH ×5 (20:45)
[2020-04-02] MEDS: INSULIN ASPART (NovoLOG) 100 UNIT/ML VIAL SQ SCH ×4 (00:31→17:33)
[2020-04-02] MEDS: NITROGLYCERIN OINT 1 INCH/GM PACKET TOPICAL SCH ×4 (00:35→17:01)
[2020-04-02 04:58] LABS: Glucose,Whole Blood 121 mg/dL (75-99)
[2020-04-02 06:30] LABS: Albumin 2.6 g/dL (3.5-5.0); Calcium 8.5 mg/dL (8.4-10.2); Phosphorus 3.1 mg/dL (2.5-4.5); Total Bilirubin 0.4 mg/dL (0.2-1.3); Total Protein 5.4 g/dL (6.3-8.2)
[2020-04-02] MEDS: METOPROLOL TARTRATE 25 MG TAB PO SCH ×2 (08:33→20:12)
[2020-04-02] MEDS: PANTOPRAZOLE 40 MG TABLET PO SCH ×2 (08:33→17:01)
[2020-04-02] MEDS: LISINOPRIL-HCTZ 20-12.5 MG 1 EACH TAB PO SCH ×2 (08:33→20:13)
[2020-04-02] MEDS: ENOXAPARIN 40 MG/0.4 ML SYRINGE SQ SCH (08:33)
[2020-04-02] MEDS: LEVOFLOXACIN 250MG-D5W PMX 250 MG in DEXTROSE/WATER 1 50ML.BAG IVPB SCH (09:46)
--- NOTE | 2020-04-02 10:32 | P.PN ---
Subjective Progress Note Date: 04/02/20 CHIEF COMPLAINT: Gastric outlet obstruction HISTORY OF PRESENT ILLNESS: The patient is an 80-year-old female with history of gastric outlet obstruction. She status post gastrojejunostomy, 03/28/20. No repo rts of abdominal pain. She is POD 5. She is tolerating full liquid diet ROS: No fevers or chills. No new chest pain. No productive sputum PHYSICAL EXAM: VITAL SIGNS: Reviewed CONSTITUTIONAL: Well developed and in no acute distress. EYES: Conjuctivae without sclera icterus. Extraocular movements grossly intact. HEAD, EARS, NOSE, THROAT: Moist buccal mucosa. Head is atraumatic, normocephal ic. Hears conversational speech. No nasal drainage. NECK: Supple. No thyroidomegaly. RESPIRATORY: Non-labored respirations and equal bilateral excursions. CARDIOVASCULAR: Palpable 2+ radial pulses. ABDOMEN: Dressing intact. No peritonitis. MUSCULOSKELETAL: No gross deformity of the lower extremities noted. No clubbing. No cyanosis. SKIN: Good skin turgor. Well perfused. NEUROLOGIC: Cranial nerves II through XII grossly intact. No focal or lateralizing signs. PSYCH: Appropriate affect. Alert and oriented to person, place and time. CLINICAL LABS: Sodium low 134 ASSESSMENT: 1. Gastric outlet obstruction PLAN: 1. She is on full liquid diet and continue 2. Re-check CBC for prior leukocytosis 3. Rehab and home health care evaluation advised Objective - Vital Signs Vital signs: Vital Signs Temp 98.3 F 04/02/20 04:48 Pulse 67 04/02/20 04:48 Resp 18 04/02/20 04:48 BP 181/61 04/02/20 04:48 Pulse Ox 97 04/02/20 04:48 Intake & Output 04/01/20 04/02/20 04/02/20 18:59 06:59 18:59 Other: Voiding Method Indwelling Catheter Indwelling Catheter Indwelling Catheter # Voids 1 # Bowel Movements 1 - Labs CBC & Chem 7: 03/31/20 05:57 04/02/20 05:30 Labs: Abnormal Lab Results - Last 24 Hours (Table) 04/01/20 04/01/20 04/02/20 Range/Units 12:39 17:05 04:55 Sodium (137-145) mmol/L BUN (7-17) mg/dL Glucose (74-99) mg/dL POC Glucose (mg/dL) 135 H 119 H 121 H (75-99) mg/dL Total Protein (6.3-8.2) g/dL Albumin (3.5-5.0) g/dL / Range/Units 05:30 Sodium 134 L (137-145) mmol/L BUN 22 H (7-17) mg/dL Glucose 105 H (74-99) mg/dL POC Glucose (mg/dL) (75-99) mg/dL Total Protein 5.4 L (6.3-8.2) g/dL Albumin 2.6 L (3.5-5.0) g/dL Assessment and Plan (1) Peptic ulcer Current Visit: Yes Status: Acute Code(s): K27.9 - PEPTIC ULC, SITE UNSP, UNSP AC OR CHR, W/O HEMOR OR PERF SNOMED Code(s): 52008426 (2) Duodenitis Current Visit: Yes Status: Acute Code(s): K29.80 - DUODENITIS WITHOUT BLEEDING SNOMED Code(s): 56616295 (3) Gastric outlet obstruction Current Visit: Yes Status: Acute Code(s): K31.1 - ADULT HYPERTROPHIC PYLORIC STENOSIS SNOMED Code(s): 335242058
[2020-04-02 11:13] LABS: Glucose,Whole Blood 113 mg/dL (75-99)
[2020-04-02] MEDS: FAT EMULSION 20% 250 ML in EMPTY BAG 1 BAG IV SCH (14:47)
[2020-04-02 17:33] LABS: Glucose,Whole Blood 116 mg/dL (75-99)
--- NOTE | 2020-04-02 17:36 | P.PN ---
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 Computed tomography scan of the abdomen showing gastric outlet obstruction. EGD was scheduled Dr. Livingston on March 27. Found to have gastric outlet obstruction due to extensive peptic ulcer disease and scarring in the first part of duodenum. March 28 patient underwent a gastrojejunostomy. NG tube was placed and then discontinued. Started on TPN and lipids. Today had couple of bowel movements. Feeling well. On a full liquid diet. Review of systems: Was done for constitutional, cardiovascular, GI, pulmonary. relevant finding as above Active Medications Hydrocodone Bitart/Acetaminophen ([place] 5-325) 1 each PO Q4HR PRN PRN Reason: Pain Enoxaparin Sodium (Lovenox) 40 mg SQ DAILY [facility] Last Admin: 04/02/20 08:33 Dose: 40 mg Documented by: Lisinopril/HCTZ (Zestoretic 20-12.5) 1 each PO BID [facility] Last Admin: 04/02/20 08:33 Dose: 1 each Documented by: Hydromorphone HCl (Dilaudid) 0.5 mg IVP Q3HR PRN PRN Reason: Moderate to Severe Pain Last Admin: 03/29/20 19:39 Dose: 0.5 mg Documented by: Levofloxacin/Dextrose 250 mg/ (IV Solution) 50 mls @ 50 mls/hr IVPB DAILY [facility] Last Admin: 04/02/20 09:46 Dose: 50 mls/hr Documented by: Fat Emulsion Intravenous 250 (ml/ IV Solution) 250 mls @ 21 mls/hr IV Q24H [facility] Last Admin: 04/02/20 14:47 Dose: 21 mls/hr Documented by: Parenteral Vitamin Supplement 10 ml/ Chromium/Copper/Manganese/Seleni/Zn 1 ml/Potassium Chloride 20 meq/Magnesium Sulfate 1 gm/ Amino Ac/Electrol/Dextrose/Calcium 1,023 mls @ 50 mls/hr IV .[id number] [facility] Last Admin: 04/01/20 20:45 Dose: 50 mls/hr Documented by: Insulin Aspart (Novolog) 0 unit SQ Q6H [facility]; Protocol Last Admin: 04/02/20 11:49 Dose: Not Given Documented by: Lidocaine HCl (.Xylocaine 1% Inj (10mg/Ml) For Iv Start) 0.1 ml INTRADERMA PER PROTOCOL PRN PRN Reason: IV Start Lorazepam (Ativan) 0.25 mg IV Q4HR PRN PRN Reason: Anxiety Last Admin: 03/27/20 00:47 Dose: 0.25 mg Documented by: Metoclopramide HCl (Reglan) 10 mg IVP Q6H PRN PRN Reason: Nausea And Vomiting Metoprolol Tartrate (Lopressor) 25 mg PO BID [facility] Last Admin: 04/02/20 08:33 Dose: 25 mg Documented by: Miscellaneous Information (Phosphorus Per Protocol) 1 each MISCELLANE DAILY PRN; Protocol PRN Reason: Per Protocol Miscellaneous Information (Potassium Per Protocol) 1 each MISCELLANE DAILY PRN; Protocol PRN Reason: Per Protocol Morphine Sulfate (Morphine Sulfate (Inj)) 2 mg IV Q4HR PRN PRN Reason: Severe Pain Naloxone HCl (Narcan) 0.2 mg IV Q2M PRN PRN Reason: Opioid Reversal Nitroglycerin (Nitro-Bid Oint) 1 inch TOPICAL Q6HR [facility] Last Admin: 04/02/20 17:01 Dose: Not Given Documented by: Ondansetron HCl (Zofran) 4 mg IVP Q8HR PRN PRN Reason: Nausea And Vomiting Pantoprazole Sodium (Protonix) 40 mg PO AC-BID [facility] Last Admin: 04/02/20 17:01 Dose: 40 mg Documented by: Sodium Chloride (Saline Flush) 10 ml IV Q4HR PRN PRN Reason: PICC Line Sodium Chloride (Saline Flush) 10 ml IV WEEKLY [facility] Sodium Chloride (Saline Flush) 20 ml IV Q4HR PRN PRN Reason: PICC Line On examination: VITAL SIGNS: 98.4, 70, 16, 115/66, 98% on room air GENERAL APPEARANCE: Sitting up in a chair, comfortable HEENT: Normal external appearance of nose and ear. Oral cavity-dry. NG tube discontinued EYES: Pupils equal. Conjunctiva normal. NECK: JVD not raised. Mass not palpable. RESPIRATORY: Respiratory effort normal. Lungs clear to auscultation. CARDIOVASCULAR: First and second sounds normal. No edema. ABDOMEN: Soft. Minimal tenderness. Binder in place. No mass palpable. PSYCHIATRY: Alert and oriented x3. Mood and affect normal. INVESTIGATIONS, reviewed in the clinical context: Potassium 4 creatinine 1.0 to albumin 2.6 Assessment: -Acute gastric outlet obstruction secondary to peptic ulcer disease in the first portion of duodenum -Severe peptic ulcer disease causing severe duodenitis -Procedure-gastrojejunostomy -Essential hypertension better controlled -Hypokalemia -Hypoalbuminemia-acute phase reactant Plan: Continues to improve. Encourage ambulation. Hopefully TPN and lipids can be discontinued tomorrow morning. Thank you Dr. Livingston
[2020-04-02] MEDS: MVI, ADULT NO.4 WITH VIT K 10 ML, TRACE (CONC-1ML/DOSE) 1 ML, POTASSIUM CHLORIDE 20 MEQ... IV SCH ×5 (20:12)
[2020-04-03 00:15] LABS: Glucose,Whole Blood 107 mg/dL (75-99)
[2020-04-03] MEDS: INSULIN ASPART (NovoLOG) 100 UNIT/ML VIAL SQ SCH ×4 (00:28→18:27)
[2020-04-03 06:00] LABS: Appearance,Urine Cloudy (Clear); Bacteria,Urine Occasional /hpf; Bilirubin,Urine Negative (Negative); Blood,Urine Large (Negative); Color,Urine Light Yellow; Glucose,Urine (UA) Negative (Negative); Hyaline Casts,Urine 1 /lpf (0-2); Ketones,Urine Negative (Negative); Leukocyte Esterase,Urine Large (Negative); Mucus,Urine Rare /hpf; Nitrite,Urine Positive (Negative); PH, Urine 7.5 (5.0-8.0); Protein,Urine Negative (Negative); RBC,Urine 130 /hpf (0-5); Specific Gravity,Urine 1.008 (1.001-1.035); Squamous Epithelial Cell,Urine 1 /hpf (0-4); Urobilinogen,Urine <2.0 mg/dL (<2.0); WBC,Urine 84 /hpf (0-5)
[2020-04-03 06:29] LABS: Glucose,Whole Blood 118 mg/dL (75-99)
[2020-04-03 07:16] LABS: Basophils # (A) 0.1 k/uL (0-0.2); Basophils % (A) 0 %; Eosinophils # (A) 0.5 k/uL (0-0.7); Eosinophils % (A) 3 %; HCT 34.7 % (34.0-46.0); HGB 11.2 gm/dL (11.4-16.0); Hypochromasia Slight; Lymphocytes # (A) 1.9 k/uL (1.0-4.8); Lymphocytes % (A) 12 %; MCH 27.2 pg (25.0-35.0); MCHC 32.3 g/dL (31.0-37.0); Mean Platelet Volume 8.3; Monocytes % (A) 7 %; Neutrophils # (A) 11.1 k/uL (1.3-7.7); Neutrophils % (A) 73 %; Platelet Count 304 k/uL (150-450); RBC 4.13 m/uL (3.80-5.40); WBC 15.2 k/uL (3.8-10.6)
[2020-04-03 07:32] LABS: Albumin 2.8 g/dL (3.5-5.0); Calcium 8.7 mg/dL (8.4-10.2); Magnesium 1.8 mg/dL (1.6-2.3); Phosphorus 3.6 mg/dL (2.5-4.5); Potassium 3.8 mmol/L (3.5-5.1); Total Bilirubin 0.5 mg/dL (0.2-1.3); Total Protein 5.7 g/dL (6.3-8.2)
[2020-04-03] MEDS: LEVOFLOXACIN 250MG-D5W PMX 250 MG in DEXTROSE/WATER 1 50ML.BAG IVPB SCH (09:11)
[2020-04-03] MEDS: ENOXAPARIN 40 MG/0.4 ML SYRINGE SQ SCH (09:11)
[2020-04-03] MEDS: METOPROLOL TARTRATE 25 MG TAB PO SCH ×2 (09:11→20:20)
[2020-04-03] MEDS: PANTOPRAZOLE 40 MG TABLET PO SCH ×2 (09:12→18:28)
[2020-04-03] MEDS: LISINOPRIL-HCTZ 20-12.5 MG 1 EACH TAB PO SCH ×2 (09:12→21:31)
[2020-04-03 11:09] LABS: Glucose,Whole Blood 112 mg/dL (75-99)
--- NOTE | 2020-04-03 11:52 | P.PN ---
Subjective Progress Note Date: 04/03/20 CHIEF COMPLAINT: Gastric outlet obstruction HISTORY OF PRESENT ILLNESS: Patient is status post gastrojejunostomy. Patient examined at the bedside with Dr. Livingston. Patient reports her pain is tolerable. She is tolerating full liquid diet. She reports passing flatus and having a bowel movement. WBC increased to 15.2 today. PHYSICAL EXAM: VITAL SIGNS: Reviewed. GENERAL: Well-developed in no acute distress. HEENT: No sclera icterus. Extraocular movements grossly intact. Moist buccal mucosa. Head is atraumatic, normocephalic. ABDOMEN: Soft. Nondistended. Dressing clean dry and intact.. Abdominal binder noted. NEUROLOGIC: Alert and oriented. Cranial nerves II through XII grossly intact. ASSESSMENT: 1. Gastric outlet obstruction, status post gastrojejunostomy PLAN: -Advance diet to soft diet -Wean off TPN -Incentive spirometer -Activity as tolerated -Monitor WBC. Repeat in a.m. -Possible discharge home tomorrow Nurse practitioner note has been reviewed by physician. Signing provider agrees with the documented findings, assessment, and plan of care. Objective - Vital Signs Vital signs: Vital Signs Temp 98.0 F 04/03/20 11:13 Pulse 66 04/03/20 11:13 Resp 16 04/03/20 11:13 BP 124/68 04/03/20 11:13 Pulse Ox 98 04/03/20 11:13 Intake & Output 04/02/20 04/03/20 04/03/20 18:59 06:59 18:59 Intake Total 1373 Balance 1373 Weight 76.005 kg Intake: Intake, IV Titration 1023 Amount Mvi, Adult No.4 with Vit 1023 K 10 ml Trace (Conc-1Ml/ Dose) 1 ml Potassium Chloride 20 meq Magnesium Sulfate gm 1 gm In Amino Acid 4.25%-D10w+Lytes*E* 1,000 ml @ 50 mls/hr IV .[id number] [facility] Rx#: [id number] Oral 350 Other: Voiding Method Indwelling Catheter Toilet Toilet # Voids 10 1 - Labs CBC & Chem 7: 04/03/20 06:25 04/03/20 06:25 Labs: Abnormal Lab Results - Last 24 Hours (Table) 04/02/20 04/03/20 04/03/20 Range/Units 17:32 00:06 05:15 WBC (3.8-10.6) k/uL Hgb (11.4-16.0) gm/dL Neutrophils # (1.3-7.7) k/uL Sodium (137-145) mmol/L Chloride (98-107) mmol/L BUN (7-17) mg/dL Creatinine (0.52-1.04) mg/dL Glucose (74-99) mg/dL POC Glucose (mg/dL) 116 H 107 H (75-99) mg/dL Total Protein (6.3-8.2) g/dL Albumin (3.5-5.0) g/dL Urine Appearance Cloudy H (Clear) Urine Blood Large H (Negative) Urine Nitrite Positive H (Negative) Ur Leukocyte Esterase Large H (Negative) Urine RBC 130 H (0-5) /hpf Urine WBC 84 H (0-5) /hpf Urine WBC Clumps Few H (None) /hpf Urine Bacteria Occasional H (None) /hpf Urine Mucus Rare H (None) /hpf 04/03/20 04/03/20 04/03/20 Range/Units 06:17 06:25 06:25 WBC 15.2 H (3.8-10.6) k/uL Hgb 11.2 L (11.4-16.0) gm/dL Neutrophils # 11.1 H (1.3-7.7) k/uL Sodium 130 L (137-145) mmol/L Chloride 94 L (98-107) mmol/L BUN 23 H (7-17) mg/dL Creatinine 1.10 H (0.52-1.04) mg/dL Glucose 111 H (74-99) mg/dL POC Glucose (mg/dL) 118 H (75-99) mg/dL Total Protein 5.7 L (6.3-8.2) g/dL Albumin 2.8 L (3.5-5.0) g/dL Urine Appearance (Clear) Urine Blood (Negative) Urine Nitrite (Negative) Ur Leukocyte Esterase (Negative) Urine RBC (0-5) /hpf Urine WBC (0-5) /hpf Urine WBC Clumps (None) /hpf Urine Bacteria (None) /hpf Urine Mucus (None) /hpf 04/03/20 Range/Units 11:08 WBC (3.8-10.6) k/uL Hgb (11.4-16.0) gm/dL Neutrophils # (1.3-7.7) k/uL Sodium (137-145) mmol/L Chloride (98-107) mmol/L BUN (7-17) mg/dL Creatinine (0.52-1.04) mg/dL Glucose (74-99) mg/dL POC Glucose (mg/dL) 112 H (75-99) mg/dL Total Protein (6.3-8.2) g/dL Albumin (3.5-5.0) g/dL Urine Appearance (Clear) Urine Blood (Negative) Urine Nitrite (Negative) Ur Leukocyte Esterase (Negative) Urine RBC (0-5) /hpf Urine WBC (0-5) /hpf Urine WBC Clumps (None) /hpf Urine Bacteria (None) /hpf Urine Mucus (None) /hpf Microbiology - Last 24 Hours (Table) 04/03/20 05:15 Urine Culture - Preliminary Urine,Voided
[2020-04-03 14:22] VITALS: BMI 29.7
[2020-04-03] MEDS ORDERED: MVI, ADULT NO.4 WITH VIT K 10 ML, TRACE (CONC-1ML/DOSE) 1 ML, POTASSIUM CHLORIDE 20 MEQ... IV SCH ×6 (16:00)
[2020-04-03] MEDS: MVI, ADULT NO.4 WITH VIT K 10 ML, TRACE (CONC-1ML/DOSE) 1 ML, POTASSIUM CHLORIDE 20 MEQ... IV SCH ×5 (16:12)
[2020-04-03 17:28] LABS: Glucose,Whole Blood 97 mg/dL (75-99)
[2020-04-03] MEDS: FAT EMULSION 20% 250 ML in EMPTY BAG 1 BAG IV SCH (18:40)
--- NOTE | 2020-04-03 20:00 | P.PN ---
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 Computed tomography scan of the abdomen showing gastric outlet obstruction. EGD was scheduled Dr. Livingston on March 27. Found to have gastric outlet obstruction due to extensive peptic ulcer disease and scarring in the first part of duodenum. March 28 patient underwent a gastrojejunostomy. NG tube was placed and then discontinued. Started on TPN and lipids. Today-feeling better. Tolerating diet. Had a bowel movement. Pain well controlled. On TPN Review of systems: Was done for constitutional, cardiovascular, GI, pulmonary. relevant finding as above Active Medications Hydrocodone Bitart/Acetaminophen ([place] 5-325) 1 each PO Q4HR PRN PRN Reason: Pain Enoxaparin Sodium (Lovenox) 40 mg SQ DAILY [facility] Last Admin: 04/03/20 09:11 Dose: 40 mg Documented by: Lisinopril/HCTZ (Zestoretic 20-12.5) 1 each PO BID [facility] Last Admin: 04/03/20 09:12 Dose: 1 each Documented by: Levofloxacin/Dextrose 250 mg/ (IV Solution) 50 mls @ 50 mls/hr IVPB DAILY [facility] Last Admin: 04/03/20 09:11 Dose: 50 mls/hr Documented by: Insulin Aspart (Novolog) 0 unit SQ Q6H [facility]; Protocol Last Admin: 04/03/20 18:27 Dose: Not Given Documented by: Lidocaine HCl (.Xylocaine 1% Inj (10mg/Ml) For Iv Start) 0.1 ml INTRADERMA PER PROTOCOL PRN PRN Reason: IV Start Lorazepam (Ativan) 0.25 mg IV Q4HR PRN PRN Reason: Anxiety Last Admin: 03/27/20 00:47 Dose: 0.25 mg Documented by: Metoclopramide HCl (Reglan) 10 mg IVP Q6H PRN PRN Reason: Nausea And Vomiting Metoprolol Tartrate (Lopressor) 25 mg PO BID [facility] Last Admin: 04/03/20 09:11 Dose: 25 mg Documented by: Miscellaneous Information (Phosphorus Per Protocol) 1 each MISCELLANE DAILY PRN; Protocol PRN Reason: Per Protocol Miscellaneous Information (Potassium Per Protocol) 1 each MISCELLANE DAILY PRN; Protocol PRN Reason: Per Protocol Naloxone HCl (Narcan) 0.2 mg IV Q2M PRN PRN Reason: Opioid Reversal Ondansetron HCl (Zofran) 4 mg IVP Q8HR PRN PRN Reason: Nausea And Vomiting Pantoprazole Sodium (Protonix) 40 mg PO AC-BID [facility] Last Admin: 04/03/20 18:28 Dose: 40 mg Documented by: Sodium Chloride (Saline Flush) 10 ml IV Q4HR PRN PRN Reason: PICC Line On examination: VITAL SIGNS: 98, 66, 16, 124/68, 98% on room air GENERAL APPEARANCE: Sitting up i, comfortable HEENT: Normal external appearance of nose and ear. Oral cavity-dry. NG tube discontinued EYES: Pupils equal. Conjunctiva normal. NECK: JVD not raised. Mass not palpable. RESPIRATORY: Respiratory effort normal. Lungs clear to auscultation. CARDIOVASCULAR: First and second sounds normal. No edema. ABDOMEN: Soft. Minimal tenderness. Binder in place. No mass palpable. PSYCHIATRY: Alert and oriented x3. Mood and affect normal. INVESTIGATIONS, reviewed in the clinical context: White count 15.2 hemoglobin 10.2 sodium 1:30 bun 23 creatinine 1.10 Assessment: -Acute gastric outlet obstruction secondary to peptic ulcer disease in the first portion of duodenum -Severe peptic ulcer disease causing severe duodenitis -Procedure-gastrojejunostomy -Essential hypertension better controlled -Hypokalemia-corrected -Hypoalbuminemia-acute phase reactant Plan: Diet advanced per surgery. Patient is up to the door and back to the chair ambulating. Overall feeling better. TPN will be discontinued later today. Thank you Dr. Livingston
[2020-04-04] MEDS: INSULIN ASPART (NovoLOG) 100 UNIT/ML VIAL SQ SCH ×4 (00:25→17:45)
[2020-04-04 00:26] LABS: Glucose,Whole Blood 100 mg/dL (75-99)
[2020-04-04 05:37] LABS: Glucose,Whole Blood 103 mg/dL (75-99)
[2020-04-04 07:08] LABS: Albumin 2.9 g/dL (3.5-5.0); Calcium 8.7 mg/dL (8.4-10.2); Magnesium 1.6 mg/dL (1.6-2.3); Phosphorus 4.3 mg/dL (2.5-4.5); Potassium 3.5 mmol/L (3.5-5.1); Total Bilirubin 0.5 mg/dL (0.2-1.3); Total Protein 5.7 g/dL (6.3-8.2)
[2020-04-04 07:22] LABS: Basophils # (A) 0.1 k/uL (0-0.2); Basophils % (A) 0 %; Eosinophils # (A) 0.4 k/uL (0-0.7); Eosinophils % (A) 3 %; HCT 32.4 % (34.0-46.0); HGB 10.8 gm/dL (11.4-16.0); Lymphocytes # (A) 2.1 k/uL (1.0-4.8); Lymphocytes % (A) 14 %; MCH 27.8 pg (25.0-35.0); MCHC 33.3 g/dL (31.0-37.0); MCV 83.5 fL (80.0-100.0); Mean Platelet Volume 8.4; Monocytes # (A) 1.2 k/uL (0-1.0); Monocytes % (A) 8 %; Neutrophils % (A) 71 %; Platelet Count 329 k/uL (150-450); RBC 3.88 m/uL (3.80-5.40); RDW 14.1 % (11.5-15.5); WBC 15.4 k/uL (3.8-10.6)
[2020-04-04] MEDS: LEVOFLOXACIN 250MG-D5W PMX 250 MG in DEXTROSE/WATER 1 50ML.BAG IVPB SCH (07:56)
[2020-04-04] MEDS: METOPROLOL TARTRATE 25 MG TAB PO SCH ×3 (07:56→20:33)
[2020-04-04] MEDS: LISINOPRIL-HCTZ 20-12.5 MG 1 EACH TAB PO SCH (07:56)
[2020-04-04] MEDS: ENOXAPARIN 40 MG/0.4 ML SYRINGE SQ SCH (07:56)
[2020-04-04] MEDS: PANTOPRAZOLE 40 MG TABLET PO SCH ×2 (07:57→17:06)
[2020-04-04 11:24] LABS: Glucose,Whole Blood 99 mg/dL (75-99)
[2020-04-04] MEDS: SODIUM CHLORIDE 0.9% 1,000 ML IV SCH ×2 (11:24→23:18)
--- NOTE | 2020-04-04 13:10 | P.PN ---
Subjective Progress Note Date: 04/04/20 CHIEF COMPLAINT: Gastric outlet obstruction HISTORY OF PRESENT ILLNESS: Patient is status post gastrojejunostomy. Patient examined at the bedside with Dr. Livingston. Patient reports her pain is tolerable. She is tolerating full liquid diet. She reports passing flatus and having a bowel movement. WBC remains elevated at 15.4. PHYSICAL EXAM: VITAL SIGNS: Reviewed. GENERAL: Well-developed in no acute distress. HEENT: No sclera icterus. Extraocular movements grossly intact. Moist buccal mucosa. Head is atraumatic, normocephalic. ABDOMEN: Soft. Nondistended. Dressing clean dry and intact.. Abdominal binder noted. NEUROLOGIC: Alert and oriented. Cranial nerves II through XII grossly intact. ASSESSMENT: 1. Gastric outlet obstruction, status post gastrojejunostomy PLAN: -Continue soft diet -Incentive spirometer -Activity as tolerated -Monitor WBC. Repeat in a.m. -Possible discharge home tomorrow if WBC decreases Nurse practitioner note has been reviewed by physician. Signing provider agrees with the documented findings, assessment, and plan of care. Objective - Vital Signs Vital signs: Vital Signs Temp 97.0 F L 04/04/20 11:01 Pulse 73 04/04/20 11:01 Resp 18 04/04/20 11:01 BP 139/65 04/04/20 11:01 Pulse Ox 96 04/04/20 11:01 Intake & Output 04/03/20 04/04/20 04/04/20 18:59 06:59 18:59 Intake Total 958.667 Balance 958.667 Weight 76.005 kg 75.7 kg Intake: Intake, IV Titration 958.667 Amount Mvi, Adult No.4 with Vit 958.667 K 10 ml Trace (Conc-1Ml/ Dose) 1 ml Potassium Chloride 20 meq Magnesium Sulfate gm 1 gm In Amino Acid 4.25%-D10w+Lytes*E* 1,000 ml @ 50 mls/hr IV .[id number] [facility] Rx#: [id number] Other: Voiding Method Toilet Toilet Toilet # Voids 5 1 - Labs CBC & Chem 7: 04/04/20 06:07 04/04/20 06:07 Labs: Abnormal Lab Results - Last 24 Hours (Table) 04/04/20 04/04/20 04/04/20 Range/Units 00:24 05:35 06:07 WBC (3.8-10.6) k/uL Hgb (11.4-16.0) gm/dL Hct (34.0-46.0) % Neutrophils # (1.3-7.7) k/uL Monocytes # (0-1.0) k/uL Sodium 130 L (137-145) mmol/L Chloride 94 L (98-107) mmol/L BUN 24 H (7-17) mg/dL Creatinine 1.32 H (0.52-1.04) mg/dL POC Glucose (mg/dL) 100 H 103 H (75-99) mg/dL Total Protein 5.7 L (6.3-8.2) g/dL Albumin 2.9 L (3.5-5.0) g/dL 04/04/20 Range/Units 06:07 WBC 15.4 H (3.8-10.6) k/uL Hgb 10.8 L (11.4-16.0) gm/dL Hct 32.4 L (34.0-46.0) % Neutrophils # 11.0 H (1.3-7.7) k/uL Monocytes # 1.2 H (0-1.0) k/uL Sodium (137-145) mmol/L Chloride (98-107) mmol/L BUN (7-17) mg/dL Creatinine (0.52-1.04) mg/dL POC Glucose (mg/dL) (75-99) mg/dL Total Protein (6.3-8.2) g/dL Albumin (3.5-5.0) g/dL Microbiology - Last 24 Hours (Table) 04/03/20 05:15 Urine Culture - Preliminary Urine,Voided Staphylococcus species
--- NOTE | 2020-04-04 15:24 | P.PN ---
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 Computed tomography scan of the abdomen showing gastric outlet obstruction. EGD was scheduled Dr. Livingston on March 27. Found to have gastric outlet obstruction due to extensive peptic ulcer disease and scarring in the first part of duodenum. March 28 patient underwent a gastrojejunostomy. NG tube was placed and then discontinued. Started on TPN and lipids. Today-feeling well. Pain control. Tolerating diet. Had a bowel movement. Patient's renal function has worsened. Review of systems: Was done for constitutional, cardiovascular, GI, pulmonary. relevant finding as above Active Medications Hydrocodone Bitart/Acetaminophen ([place] 5-325) 1 each PO Q4HR PRN PRN Reason: Pain Enoxaparin Sodium (Lovenox) 30 mg SQ DAILY [facility] Levofloxacin/Dextrose 250 mg/ (IV Solution) 50 mls @ 50 mls/hr IVPB DAILY [facility] Last Admin: 04/04/20 07:56 Dose: 50 mls/hr Documented by: Sodium Chloride (Saline 0.9%) 1,000 mls @ 75 mls/hr IV .[id number] [facility] Last Admin: 04/04/20 11:24 Dose: 75 mls/hr Documented by: Insulin Aspart (Novolog) 0 unit SQ Q6H [facility]; Protocol Last Admin: 04/04/20 11:26 Dose: Not Given Documented by: Lidocaine HCl (.Xylocaine 1% Inj (10mg/Ml) For Iv Start) 0.1 ml INTRADERMA PER PROTOCOL PRN PRN Reason: IV Start Lorazepam (Ativan) 0.25 mg IV Q4HR PRN PRN Reason: Anxiety Last Admin: 03/27/20 00:47 Dose: 0.25 mg Documented by: Metoclopramide HCl (Reglan) 10 mg IVP Q6H PRN PRN Reason: Nausea And Vomiting Metoprolol Tartrate (Lopressor) 25 mg PO BID [facility] Last Admin: 04/04/20 12:30 Dose: 25 mg Documented by: Miscellaneous Information (Phosphorus Per Protocol) 1 each MISCELLANE DAILY PRN; Protocol PRN Reason: Per Protocol Miscellaneous Information (Potassium Per Protocol) 1 each MISCELLANE DAILY PRN; Protocol PRN Reason: Per Protocol Naloxone HCl (Narcan) 0.2 mg IV Q2M PRN PRN Reason: Opioid Reversal Ondansetron HCl (Zofran) 4 mg IVP Q8HR PRN PRN Reason: Nausea And Vomiting Pantoprazole Sodium (Protonix) 40 mg PO AC-BID [facility] Last Admin: 04/04/20 07:57 Dose: 40 mg Documented by: Sodium Chloride (Saline Flush) 10 ml IV Q4HR PRN PRN Reason: PICC Line On examination: VITAL SIGNS: 97, 73, 18, 139/65, 96% room air GENERAL APPEARANCE: Sitting up on a chair, comfortable HEENT: Normal external appearance of nose and ear. Oral cavity-dry. NG tube discontinued EYES: Pupils equal. Conjunctiva normal. NECK: JVD not raised. Mass not palpable. RESPIRATORY: Respiratory effort normal. Lungs clear to auscultation. CARDIOVASCULAR: First and second sounds normal. No edema. ABDOMEN: Soft. Minimal tenderness. Binder in place. No mass palpable. PSYCHIATRY: Alert and oriented x3. Mood and affect normal. INVESTIGATIONS, reviewed in the clinical context: White count 15.4 hemoglobin 10.8 potassium 3.5 bun 24 creatinine 1.32 Assessment: -Acute gastric outlet obstruction secondary to peptic ulcer disease in the first portion of duodenum -Severe peptic ulcer disease causing severe duodenitis -Procedure-gastrojejunostomy -Essential hypertension better controlled -Hypokalemia-corrected -Hypoalbuminemia-acute phase reactant -Acute kidney injury possibly a combination of ATN and prerenal patient has been on lisinopril hydrochlorothiazide-new diagnosis Plan: We'll DC the lisinopril hydrochlorothiazide. Increase the dose of Lopressor to 25 mg 3 times a day. Put the patient on normal saline 75 mL an hour. Discussed with the patient. Repeat labs in the morning. Hold of discharge.
[2020-04-04 17:20] LABS: Glucose,Whole Blood 105 mg/dL (75-99)
[2020-04-05 00:10] LABS: Glucose,Whole Blood 95 mg/dL (75-99)
[2020-04-05] MEDS: INSULIN ASPART (NovoLOG) 100 UNIT/ML VIAL SQ SCH ×4 (00:14→17:23)
[2020-04-05 06:00] LABS: Glucose,Whole Blood 90 mg/dL (75-99)
[2020-04-05 06:12] LABS: HCT 31.4 % (34.0-46.0); HGB 10.5 gm/dL (11.4-16.0); MCH 28.1 pg (25.0-35.0); MCHC 33.6 g/dL (31.0-37.0); MCV 83.6 fL (80.0-100.0); Mean Platelet Volume 8.3; Platelet Count 329 k/uL (150-450); RBC 3.75 m/uL (3.80-5.40); RDW 14.3 % (11.5-15.5); WBC 14.4 k/uL (3.8-10.6)
[2020-04-05 06:59] LABS: Calcium 8.6 mg/dL (8.4-10.2); Potassium 3.9 mmol/L (3.5-5.1)
[2020-04-05 08:09] LABS: Eosinophils # (M) 0.14 k/uL (0-0.7); Lymphocytes # (M) 2.88 k/uL (1.0-4.8); Monocytes # (M) 0.86 k/uL (0-1.0); Neutrophils # (M) 10.51 k/uL (1.3-7.7); Neutrophils % (M) 73 %; Nucleated Red Blood Cells 0 /100 WBC (0-0); Total Cells Counted 100
[2020-04-05] MEDS: LEVOFLOXACIN 250MG-D5W PMX 250 MG in DEXTROSE/WATER 1 50ML.BAG IVPB SCH (09:07)
[2020-04-05] MEDS: ENOXAPARIN 30 MG/0.3 ML SYRINGE SQ SCH (09:07)
[2020-04-05] MEDS: PANTOPRAZOLE 40 MG TABLET PO SCH ×2 (09:08→17:17)
[2020-04-05] MEDS: METOPROLOL TARTRATE 25 MG TAB PO SCH ×2 (09:08→20:33)
[2020-04-05 11:06] LABS: Glucose,Whole Blood 122 mg/dL (75-99)
--- NOTE | 2020-04-05 11:26 | P.PN ---
Subjective Progress Note Date: 04/05/20 CHIEF COMPLAINT: Gastric outlet obstruction HISTORY OF PRESENT ILLNESS: Patient is status post gastrojejunostomy. Patient examined at the bedside with Dr. Livingston. Patient reports her pain is tolerable. She is tolerating soft diet. Denies nausea or vomiting. WBC 14.4. Urine culture showing Staphylococcus species. PHYSICAL EXAM: VITAL SIGNS: Reviewed. GENERAL: Well-developed in no acute distress. HEENT: No sclera icterus. Extraocular movements grossly intact. Moist buccal mucosa. Head is atraumatic, normocephalic. ABDOMEN: Soft. Nondistended. Dressing clean dry and intact.. Abdominal binder noted. NEUROLOGIC: Alert and oriented. Cranial nerves II through XII grossly intact. ASSESSMENT: 1. Gastric outlet obstruction, status post gastrojejunostomy PLAN: -Dr. Livingston recommends Bactrim DS 1 week at discharge secondary to urine culture -Patient stable for discharge from a surgical standpoint -Patient to continue a soft diet post discharge Nurse practitioner note has been reviewed by physician. Signing provider agrees with the documented findings, assessment, and plan of care. Objective - Vital Signs Vital signs: Vital Signs Temp 96.4 F L 04/05/20 04:48 Pulse 71 04/05/20 04:48 Resp 16 04/05/20 04:48 BP 131/60 04/05/20 04:48 Pulse Ox 96 04/05/20 04:48 Intake & Output 04/04/20 04/05/20 04/05/20 18:59 06:59 18:59 Intake Total 1490 Balance 1490 Weight 76.317 kg Intake: Intake, IV Titration 900 Amount Sodium Chloride 0.9% 1, 900 000 ml @ 75 mls/hr IV . [id number] [facility] Rx#:[id number] Oral 590 Other: Voiding Method Toilet Toilet Toilet # Voids 1 6 2 - Labs CBC & Chem 7: 04/05/20 05:32 04/05/20 05:32 Labs: Abnormal Lab Results - Last 24 Hours (Table) 04/04/20 04/05/20 04/05/20 Range/Units 17:19 05:32 05:32 WBC 14.4 H (3.8-10.6) k/uL RBC 3.75 L (3.80-5.40) m/uL Hgb 10.5 L (11.4-16.0) gm/dL Hct 31.4 L (34.0-46.0) % Neutrophils # (Manual) 10.51 H (1.3-7.7) k/uL Sodium 132 L (137-145) mmol/L Chloride 96 L (98-107) mmol/L BUN 24 H (7-17) mg/dL Creatinine 1.45 H (0.52-1.04) mg/dL POC Glucose (mg/dL) 105 H (75-99) mg/dL 04/05/20 Range/Units 11:05 WBC (3.8-10.6) k/uL RBC (3.80-5.40) m/uL Hgb (11.4-16.0) gm/dL Hct (34.0-46.0) % Neutrophils # (Manual) (1.3-7.7) k/uL Sodium (137-145) mmol/L Chloride (98-107) mmol/L BUN (7-17) mg/dL Creatinine (0.52-1.04) mg/dL POC Glucose (mg/dL) 122 H (75-99) mg/dL Microbiology - Last 24 Hours (Table) 04/03/20 05:15 Urine Culture - Preliminary Urine,Voided Staphylococcus species
[2020-04-05] MEDS: SODIUM CHLORIDE 0.9% 1,000 ML IV SCH ×2 (11:27→22:48)
[2020-04-05] MEDS: LORazepam 2 MG/ML INJ IV PRN (12:41)
[2020-04-05 17:16] LABS: Glucose,Whole Blood 93 mg/dL (75-99)
--- NOTE | 2020-04-05 19:22 | CONS ---
CONSULTATION REASON FOR CONSULT: Acute kidney injury. HISTORY OF PRESENT ILLNESS: The patient is an 80-year-old female whom we were initially following for acute kidney injury which had resolved. The patient was also mildly hyponatremic with serum sodium had remained stable. Therefore, we had signed off the case. It appears that the serum creatinine decreased to about 1.0 in 0.9 mg/dL on April 01 and 04/02 and then subsequently started to increase back up to 1.45 as of today. Review of vital signs shows blood pressures have been around 120-100 mmHg systolic occasionally. The patient was maintained on MEENA inhibitors and diuretics which were held yesterday. She denies any significant complaints. The patient has not taken any nonsteroidal and anti- inflammatory agents. She has not received any recent IV contrast. She was admitted for gastric outlet obstruction initially status post NG tube placement, gastrojejunostomy, currently improved. PAST MEDICAL HISTORY: Hypertension. PAST SURGICAL HISTORY: Recent gastrojejunostomy for gastric outlet obstruction on 03/28/[address] Liivngston. SOCIAL HISTORY: Negative for smoking, drug abuse or alcohol abuse. MEDICATIONS: Currently patient is maintained on insulin, Lovenox, Levaquin, Ativan, Reglan, Lopressor Zofran. MEENA inhibitors are now on hold. PHYSICAL EXAMINATION: Patient is comfortable, awake, not in any acute distress. Blood pressure was 115/65, heart rate 75 per minute, patient is afebrile. Examination of the heart S1, S2. Examination of the lungs, decreased breath sounds at bases. Abdomen is soft, nontender. Examination of lower extremities shows trace edema bilaterally. COAL WEIGHER exam grossly intact. LABS: From today show sodium 132, potassium 3.9, chloride 96, CO2 is 26, BUN 24, creatinine 1.45, calcium 8.6, hemoglobin 10.5 g/dL. ASSESSMENT: 1. Acute kidney injury, mostly prerenal associated with some degree of hypoperfusion in the setting of use of MEENA inhibitors currently off MEENA inhibitors and diuretics. I will continue to maintain patient off IV fluids. She is not on any nephrotoxic medications. We can repeat labs in a.m. She is encouraged to increase oral intake. 2. Gastric outlet obstruction status post gastrojejunostomy. 3. Mild hyponatremia, currently stable. Encourage increased oral protein intake. Expect further improvement with discontinuation of thiazide diuretics. PLAN: Maintain off MEENA inhibitors and diuretics for now. Repeat labs in a.m. If renal function is improving, patient could be discharged and follow up as outpatient with repeat labs in about one week's time. Avoid nonsteroidal anti-inflammatory agents. MMROMÁNL / IJN: [id number] /
--- NOTE | 2020-04-05 22:19 | P.PN ---
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 Computed tomography scan of the abdomen showing gastric outlet obstruction. EGD was scheduled Dr. Livingston on March 27. Found to have gastric outlet obstruction due to extensive peptic ulcer disease and scarring in the first part of duodenum. March 28 patient underwent a gastrojejunostomy. NG tube was placed and then discontinued. Started on TPN and lipids. Today-f patient has been tolerating a diet. Had a bowel movement. Creatinine is still going up. Review of systems: Was done for constitutional, cardiovascular, GI, pulmonary. relevant finding as above Active Medications Hydrocodone Bitart/Acetaminophen ([place] 5-325) 1 each PO Q4HR PRN PRN Reason: Pain Enoxaparin Sodium (Lovenox) 30 mg SQ DAILY [facility] Last Admin: 04/05/20 09:07 Dose: 30 mg Documented by: Levofloxacin/Dextrose 250 mg/ (IV Solution) 50 mls @ 50 mls/hr IVPB DAILY [facility] Last Admin: 04/05/20 09:07 Dose: 50 mls/hr Documented by: Sodium Chloride (Saline 0.9%) 1,000 mls @ 100 mls/hr IV .Q10H [facility] Last Admin: 04/05/20 11:27 Dose: 100 mls/hr Documented by: Lidocaine HCl (.Xylocaine 1% Inj (10mg/Ml) For Iv Start) 0.1 ml INTRADERMA PER PROTOCOL PRN PRN Reason: IV Start Lorazepam (Ativan) 0.25 mg IV Q4HR PRN PRN Reason: Anxiety Last Admin: 04/05/20 12:41 Dose: 0.25 mg Documented by: Metoclopramide HCl (Reglan) 10 mg IVP Q6H PRN PRN Reason: Nausea And Vomiting Metoprolol Tartrate (Lopressor) 25 mg PO BID [facility] Last Admin: 04/05/20 20:33 Dose: 25 mg Documented by: Miscellaneous Information (Phosphorus Per Protocol) 1 each MISCELLANE DAILY PRN; Protocol PRN Reason: Per Protocol Miscellaneous Information (Potassium Per Protocol) 1 each MISCELLANE DAILY PRN; Protocol PRN Reason: Per Protocol Naloxone HCl (Narcan) 0.2 mg IV Q2M PRN PRN Reason: Opioid Reversal Ondansetron HCl (Zofran) 4 mg IVP Q8HR PRN PRN Reason: Nausea And Vomiting Pantoprazole Sodium (Protonix) 40 mg PO AC-BID [facility] Last Admin: 04/05/20 17:17 Dose: 40 mg Documented by: Sodium Chloride (Saline Flush) 10 ml IV Q4HR PRN PRN Reason: PICC Line On examination: VITAL SIGNS: 97.3, 75, 16, 115/65, 97% on room air GENERAL APPEARANCE: Sitting up on a chair, comfortable HEENT: Normal external appearance of nose and ear. Oral cavity-dry. NG tube discontinued EYES: Pupils equal. Conjunctiva normal. NECK: JVD not raised. Mass not palpable. RESPIRATORY: Respiratory effort normal. Lungs clear to auscultation. CARDIOVASCULAR: First and second sounds normal. No edema. ABDOMEN: Soft. Minimal tenderness. Binder in place. No mass palpable. PSYCHIATRY: Alert and oriented x3. Mood and affect normal. INVESTIGATIONS, reviewed in the clinical context: White count 14.4 hemoglobin 10.5 potassium 3.9 creatinine 1.45 Assessment: -Acute gastric outlet obstruction secondary to peptic ulcer disease in the first portion of duodenum -Severe peptic ulcer disease causing severe duodenitis -Procedure-gastrojejunostomy -Essential hypertension better controlled -Hypokalemia-corrected -Hypoalbuminemia-acute phase reactant -Acute kidney injury possibly a combination of ATN and prerenal patient has been on lisinopril and hydrochlorothiazide-worsening Plan: Patient's lisinopril had a clot has was discontinued yesterday. Started on gentle hydration. Discussed with the patient and her kidney function. Continue with IV fluids. Repeat labs in the morning. Discussed with Dr. Livingston. Consult nephrology.
[2020-04-06 06:32] LABS: HCT 32.8 % (34.0-46.0); HGB 10.7 gm/dL (11.4-16.0); Hypochromasia Slight; MCH 27.3 pg (25.0-35.0); MCHC 32.5 g/dL (31.0-37.0); MCV 83.8 fL (80.0-100.0); Mean Platelet Volume 8.7; Platelet Count 359 k/uL (150-450); RBC 3.92 m/uL (3.80-5.40); RDW 14.4 % (11.5-15.5); WBC 12.9 k/uL (3.8-10.6)
[2020-04-06 06:49] LABS: Potassium 3.6 mmol/L (3.5-5.1)
[2020-04-06 06:50] LABS: Calcium 8.6 mg/dL (8.4-10.2)
[2020-04-06] MEDS: LEVOFLOXACIN 250MG-D5W PMX 250 MG in DEXTROSE/WATER 1 50ML.BAG IVPB SCH (07:50)
[2020-04-06] MEDS: METOPROLOL TARTRATE 25 MG TAB PO SCH (07:50)
[2020-04-06] MEDS: PANTOPRAZOLE 40 MG TABLET PO SCH (07:50)
[2020-04-06] MEDS: ENOXAPARIN 30 MG/0.3 ML SYRINGE SQ SCH (07:51)
[2020-04-06 08:09] VITALS: RESP 17
--- NOTE | 2020-04-06 09:01 | CT ---
EXAMINATION TYPE: CT brain wo con DATE OF EXAM: 04/06/2020 COMPARISON: None INDICATION: fall, left supraorbital laceration DLP: 1215.4 mGycm, Automated exposure control for dose reduction was used. CONTRAST: None CT of the brain is performed utilizing 3 mm thick sections through the posterior fossa and 3 mm thick sections through the remaining calvarium. Study is performed within 24 hours of arrival to the hosp [facility]. No abnormal hyperdensity is present to suggest an acute intracranial hemorrhage. No mass lesion is evident. No acute infarcts are evident. Ventricles and sulci are appropriate for the patient age. Paranasal sinuses and mastoid air cells within the [id number] are clear. No acute fractures are evident. IMPRESSIONS: 1. No acute intracranial process.
[2020-04-06 09:02] LABS: Band Neutrophils % 1 %; Eosinophils # (M) 0.26 k/uL (0-0.7); Lymphocytes # (M) 2.58 k/uL (1.0-4.8); Monocytes # (M) 1.29 k/uL (0-1.0); Myelocytes # (M) 0.26 k/uL (0); Myelocytes % 2 %; Neutrophils % (M) 67 %; Nucleated Red Blood Cells 0 /100 WBC (0-0); Total Cells Counted 200
--- NOTE | 2020-04-06 09:06 | CT ---
EXAMINATION TYPE: CT facial bones wo con DATE OF EXAM: 04/06/2020 COMPARISON: None HISTORY: fall, left supraorbital laceration CT DLP: 1215.[address] of the facial bones was performed in the axial and coronal planes. Bone and soft tissu e window settings are submitted. Noted is left-sided supraorbital laceration. I do not see evidence for displaced facial bone fracture or depressed facial bone fracture. The globes are intact. Paranasal sinuses are well-aerated. IMPRESSION: 1. No evidence for depressed or displaced facial bone fracture.
--- NOTE | 2020-04-06 09:09 | XR ---
Left wrist HISTORY: Trauma and pain 4 views of the left wrist Osteoarthritic, hypertrophic changes are present at the carpometacarpal joint of the first digit. Pos top changes are noted to the distal ulna diaphysis. Alignment is maintained. IMPRESSION: No fracture or dislocation. Postop changes and osteoarthritis.
[2020-04-06] MEDS: SODIUM CHLORIDE 0.9% 1,000 ML IV SCH (11:35)
[2020-04-06 11:52] VITALS: BP 123/70; PULSE 74; TEMP 98.6
--- NOTE | 2020-04-06 13:45 | P.PN ---
Subjective Progress Note Date: 04/06/20 CHIEF COMPLAINT: Gastric outlet obstruction HISTORY OF PRESENT ILLNESS: Patient is status post gastrojejunostomy. Patient examined at the bedside with Dr. Livingston. Patient fell this morning in the bathroom and suffered a laceration to her left eye. Patient reports her pain is tolerable. She is tolerating soft diet. Denies nausea or vomiting. PHYSICAL EXAM: VITAL SIGNS: Reviewed. GENERAL: Well-developed in no acute distress. HEENT: No sclera icterus. Extraocular movements grossly intact. Moist buccal mucosa. Head is atraumatic, normocephalic. ABDOMEN: Soft. Nondistended. Dressing clean dry and intact.. Abdominal binder noted. NEUROLOGIC: Alert and oriented. Cranial nerves II through XII grossly intact. ASSESSMENT: 1. Gastric outlet obstruction, status post gastrojejunostomy PLAN: -Continue soft diet -Left eyebrow laceration sutured at the bedside by Dr. Livingston -Dr. Livingston would like consult with Dr. Dupree for antibiotic recommendations at discharge Nurse practitioner note has been reviewed by physician. Signing provider agrees with the documented findings, assessment, and plan of care. Objective - Vital Signs Vital signs: Vital Signs Temp 98.6 F 04/06/20 11:51 Pulse 74 04/06/20 11:51 Resp 17 04/06/20 11:51 BP 123/70 04/06/20 11:51 Pulse Ox 98 04/06/20 11:51 Intake & Output 04/05/20 04/06/20 04/06/20 18:59 06:59 18:59 Weight 76.827 kg Other: Voiding Method Toilet Toilet Toilet # Voids 1 - Labs CBC & Chem 7: 04/06/20 06:20 04/06/20 06:20 Labs: Abnormal Lab Results - Last 24 Hours (Table) 04/06/20 04/06/20 Range/Units 06:20 06:20 WBC 12.9 H (3.8-10.6) k/uL Hgb 10.7 L (11.4-16.0) gm/dL Hct 32.8 L (34.0-46.0) % Neutrophils # (Manual) 8.70 H (1.3-7.7) k/uL Monocytes # (Manual) 1.29 H (0-1.0) k/uL Myelocytes # (Manual) 0.26 H (0) k/uL Sodium 135 L (137-145) mmol/L BUN 19 H (7-17) mg/dL Creatinine 1.28 H (0.52-1.04) mg/dL Microbiology - Last 24 Hours (Table) 04/03/20 05:15 Urine Culture - Final Urine,Voided Staph hominis sub sp. hominis
[2020-04-06] MEDS ORDERED: CEPHALEXIN 250 MG CAP PO SCH (13:48)
[2020-04-06] MEDS ORDERED: METOPROLOL TARTRATE 25 MG TAB PO SCH (15:00)
--- NOTE | 2020-04-06 15:44 | PN ---
PROGRESS NOTE Patient is seen for followup for acute kidney injury which was mostly associated with some degree of hypoperfusion in the setting of use of MEENA inhibitors. Lisinopril hydrochlorothiazide was held and renal function has improved. The patient is currently going down for a CAT scan. Her creatinine has decreased to 1.28 mg/dL. PHYSICAL EXAMINATION: On examination today, blood pressure was elevated at 170/77 this morning. Heart rate 102 per minute, she is afebrile. Examination shows trace edema bilateral lower extremities. Abdomen is soft, nontender. SIDING COREBOARD INSPECTOR exam grossly intact. LABS: Show sodium 135, potassium 3.6, chloride 102, BUN 19, creatinine 1.28, hemoglobin 10.7 g/dL. ASSESSMENT: 1. Acute kidney injury associated with some degree of hypoperfusion currently improved, maintain patient off of MEENA inhibitors for now. We can resume the lisinopril in the next 3-4 days. If renal function continues to remain stable. 2. Gastric outlet obstruction status post gastrojejunostomy. 3. Hypertension, blood pressure did come down to around 123 again this morning. The patient is maintained on Lopressor which we can continue for now. MMODL / IJN: [id number] /
[2020-04-06 17:53] LABS: Calcium 8.6 mg/dL (8.4-10.2); Potassium 3.8 mmol/L (3.5-5.1)
--- NOTE | 2020-04-06 23:50 | P.DS ---
Providers Date of admission: 03/26/20 08:31 Expected date of discharge: 04/06/20 Attending physician: Naun Qureshi Consults: 03/26/20 08:29 Consult Physician Urgent Consulting Provider: Geovanni Livingston Consult Reason/Comments: Gastric outlet obstruction Do you want consulting provider notified?: Yes 03/29/20 09:50 Consult Physician Routine Consulting Provider: Wyatt Addison Consult Reason/Comments: low GFR-protocol prior to PICC line Do you want consulting provider notified?: Yes 04/05/20 11:11 Consult Physician Routine Consulting Provider: Aleyda Saleh Consult Reason/Comments: VINCE Do you want consulting provider notified?: Yes Primary care physician: [facility] Course: Presenting complaint: Abdominal pain 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 Computed tomography scan of the abdomen showing gastric outlet obstruction. EGD was scheduled Dr. Livingston on March 27. Found to have gastric outlet obstruction due to extensive peptic ulcer disease and scarring in the first part of duodenum. March 28 patient underwent a gastrojejunostomy. NG tube was placed and then discontinued. Started on TPN and lipids. Patient eventually was tolerating her diet well. Eyelid today. Patient took a fall in the bathroom. Had a laceration just above the left eye. This was sutured by Dr. Livingston. Patient be switched over to Keflex for her uterine UTI. Computed tomography scan was negative for any fracture. Patient feeling back to baseline. Patient's creatinine had dropped down to 1.19. seen with refrigerator repair technician. Discussion and discharge planning more than 35 minutes Consultation: Dr. Livingston from general surgery Dr. Addsion and partner from nephrology On examination: VITAL SIGNS: 98.6, 74, 17, 123/70, 98% on room air GENERAL APPEARANCE: Sitting up on a chair, comfortable HEENT: Normal external appearance of nose and ear. Dressing over the left eye with laceration EYES: Pupils equal. Conjunctiva normal. NECK: JVD not raised. Mass not palpable. RESPIRATORY: Respiratory effort normal. Lungs clear to auscultation. CARDIOVASCULAR: First and second sounds normal. No edema. ABDOMEN: Soft. Minimal tenderness. Binder in place. No mass palpable. PSYCHIATRY: Alert and oriented x3. Mood and affect normal. INVESTIGATIONS, reviewed in the clinical context: Hemoglobin 10.7 white count 12.9 creatinine 1.19 Assessment: -Acute gastric outlet obstruction secondary to peptic ulcer disease in the first portion of duodenum -Severe peptic ulcer disease causing severe duodenitis -Procedure-gastrojejunostomy -Essential hypertension better controlled -Hypokalemia-corrected -Hypoalbuminemia-acute phase reactant -Acute kidney injury possibly a combination of ATN and prerenal patient has been on lisinopril and hydrochlorothiazide-worsening Disposition: Home Patient Condition at Discharge: Stable Plan - Discharge Summary New Discharge Prescriptions: New Hydrocodone/Acetaminophen [[place] 5-325] 1 tab PO Q6HR PRN #10 tab PRN Reason: Pain Metoprolol Tartrate [Lopressor] 25 mg PO TID #90 tab Pantoprazole [Protonix] 40 mg PO AC-BID #60 tablet. Cephalexin [Keflex] 250 mg PO Q8HR #21 capsule Continue Cholecalciferol [Vitamin D3 (25 Mcg = 1000 Iu)] 5,000 unit PO DAILY ALPRAZolam [Xanax] 0.25 mg PO DAILY PRN PRN Reason: Anxiety Discontinued Enalapril Maleate [Vasotec] 20 mg PO DAILY Discharge Medication List ALPRAZolam [Xanax] 0.25 mg PO DAILY PRN 03/26/20 [History] Cholecalciferol [Vitamin D3 (25 Mcg = 1000 Iu)] 5,000 unit PO DAILY 03/26/20 [History] Hydrocodone/Acetaminophen [[place] 5-325] 1 tab PO Q6HR PRN #10 tab 04/04/20 [Rx] Cephalexin [Keflex] 250 mg PO Q8HR #21 capsule 04/06/20 [Rx] Metoprolol Tartrate [Lopressor] 25 mg PO TID #90 tab 04/06/20 [Rx] Pantoprazole [Protonix] 40 mg PO AC-BID #60 tablet. 04/06/20 [Rx] Follow up Appointment(s)/Referral(s): [facility], [NON-STAFF] - Gabriel Blackwell MD [Primary Care Provider] - 04/11/20 10:30 am Geovanni Livingston MD [STAFF PHYSICIAN] - 04/13/20 3:20 pm Patient Instructions/Handouts: Cephalexin (By mouth), Metoprolol (By mouth), Hydrocodone/Acetaminophen (By mouth), Pantoprazole (By mouth), Fall Prevention (DC) Activity/Diet/Wound Care/Special Instructions: No driving while taking [place] No lifting over 10 pounds You may shower. No soaking or tub baths Very light activity until you are reevaluated at your follow up appointment with your surgeon Soft diet bmp-cbc - 3 days Discharge Disposition: HOME SELF-CARE
[2020-04-07] MEDS ORDERED: LEVOFLOXACIN 250 MG TAB PO SCH (09:00)
== END 2020-04-06 18:12 | disposition home health service (06) | DRG 326 ==
LOC: EC 06:26 → 5NMEDONC 08:31 → UNDODISIN 04-05 13:54
PROVIDERS: ADMIT Hospitalist; ATTEND Hospitalist
PROC: 0D9670Z Drainage of Stomach with Drainage Device, Via Natural or Artificial Opening (ICD-10-PCS; 2020-03-26)
PROC: 0DB78ZX Excision of Stomach, Pylorus, Via Natural or Artificial Opening Endoscopic, Diagnostic (ICD-10-PCS; 2020-03-27)
PROC: 0D160ZA Bypass Stomach to Jejunum, Open Approach (ICD-10-PCS; principal; 2020-03-28 07:30)
PROC: 3E0436Z Introduction of Nutritional Substance into Central Vein, Percutaneous Approach (ICD-10-PCS; 2020-03-29)
PROC: 02HV33Z Insertion of Infusion Device into Superior Vena Cava, Percutaneous Approach (ICD-10-PCS; 2020-03-30)
PROC: 0HQ1XZZ Repair Face Skin, External Approach (ICD-10-PCS; 2020-04-06)
DX: K31.1 Adult hypertrophic pyloric stenosis (principal); N17.0 Acute kidney failure with tubular necrosis; E87.1 Hypo-osmolality and hyponatremia; N39.0 Urinary tract infection, site not specified; E87.2 Acidosis; K26.9 Duodenal ulcer, unspecified as acute or chronic, without hemorrhage or perforation; E83.39 Other disorders of phosphorus metabolism; R13.10 Dysphagia, unspecified; E88.09 Other disorders of plasma-protein metabolism, not elsewhere classified; N18.3 Chronic kidney disease, stage 3 (moderate); Z11.59 Encounter for screening for other viral diseases; K29.80 Duodenitis without bleeding; I12.9 Hypertensive chronic kidney disease with stage 1 through stage 4 chronic kidney disease, or unspecified chronic kidney disease; E16.2 Hypoglycemia, unspecified; E86.0 Dehydration; E87.6 Hypokalemia; F41.9 Anxiety disorder, unspecified; N14.1 Nephropathy induced by other drugs, medicaments and biological substances; T46.4X5A Adverse effect of angiotensin-converting-enzyme inhibitors, initial encounter; T50.2X5A Adverse effect of carbonic-anhydrase inhibitors, benzothiadiazides and other diuretics, initial encounter; S01.112A Laceration without foreign body of left eyelid and periocular area, initial encounter; Z79.899 Other long term (current) drug therapy; Z87.19 Personal history of other diseases of the digestive system; Z90.710 Acquired absence of both cervix and uterus; Z90.49 Acquired absence of other specified parts of digestive tract; Z98.890 Other specified postprocedural states; Z88.0 Allergy status to penicillin; Z82.49 Family history of ischemic heart disease and other diseases of the circulatory system; W18.30XA Fall on same level, unspecified, initial encounter; Y92.231 Patient bathroom in hospital as the place of occurrence of the external cause
CPT/HCPCS: 36415; 36573; 43239; 70450; 70486; 71045; 74018; 74176; 80048; 80053; 81001; 82040; 82150; 82330; 83605; 83690; 83735; 84100; 84132; 84478; 85025; 85610; 87077; 87086; 87186; 87635; 88305; 96374; 96375; 99285

== ENCOUNTER 2021-03-28 16:29 | Inpatient (IN) | payer MEDICARE ==
[2021-03-28] MEDS ORDERED: ONDANSETRON 4 MG/2 ML VIAL IVP STA (16:35)
[2021-03-28] MEDS ORDERED: METOCLOPRAMIDE 5 MG/ML 2 ML VIAL IVP STA (17:09)
[2021-03-28] MEDS ORDERED: SODIUM CHLORIDE 0.9% 1,000 ML IV STA (17:09)
[2021-03-28] MEDS ORDERED: SODIUM CHLORIDE 0.9% 500 ML 500 ML IV STA (17:09)
[2021-03-28 17:25] LABS: HCT 38.8 % (34.0-46.0); MCH 29.4 pg (25.0-35.0); MCHC 33.6 g/dL (31.0-37.0); MCV 87.6 fL (80.0-100.0); Mean Platelet Volume 7.8; Platelet Count 215 k/uL (150-450); RBC 4.43 m/uL (3.80-5.40); RDW 13.7 % (11.5-15.5); WBC 11.3 k/uL (3.8-10.6)
--- NOTE | 2021-03-28 17:26 | ED ---
Nausea/Vomiting/Diarrhea HPI - General Source: patient, EMS, RN notes reviewed Mode of arrival: EMS Limitations: no limitations <Yoav Alvarado - Last Filed: 03/28/21 17:25> <Tommy Mars - Last Filed: 03/28/21 20:33> - General Chief complaint: Nausea/Vomiting/Diarrhea Stated complaint: Vomiting Time Seen by Provider: 03/28/21 16:49 - History of Present Illness Initial comments: This 81-year-old female presents emergency Department chief complaint of nausea vomiting, tenderness weakness. Patient states a few hours ago she started feeling nauseated states her legs just felt heavy. She states she's had this happen the past with low sodium. She denies any headache but states that she's had some dizziness. No chest pain, shortness breath, blurred vision no focal weakness. Patient has no questions dysuria no hematuria diarrhea patient had prior bowel surgery secondary to gastric ulcers. (Yoav Alvarado) - Related Data Home Medications Medication Instructions Recorded Confirmed ALPRAZolam [Xanax] 0.25 mg PO DAILY PRN 03/26/20 03/28/21 Cholecalciferol [Vitamin D3 (25 5,000 unit PO DAILY 03/26/20 03/28/21 Mcg = 1000 Iu)] Enalapril Maleate 20 mg PO DAILY 03/28/21 03/28/21 allopurinoL [Zyloprim] 50 mg PO DAILY 03/28/21 03/28/21 Allergies Allergy/AdvReac Type Severity Reaction Status Date / Time Penicillins Allergy Unknown Verified 03/28/21 17:24 Review of Systems ROS Other: All systems not noted in ROS Statement are negative. <Yoav Alvarado - Last Filed: 03/28/21 17:25> ROS Other: All systems not noted in ROS Statement are negative. <Tommy Mars - Last Filed: 03/28/21 20:33> ROS Statement: Those systems with pertinent positive or pertinent negative responses have been documented in the HPI. Past Medical History Past Medical History: Hypertension Additional Past Medical History / Comment(s): Diverticulitis History of Any Multi-Drug Resistant Organisms: None Reported Past Surgical History: Hysterectomy Past Anesthesia/Blood Transfusion Reactions: No Reported Reaction Past Psychological History: No Psychological Hx Reported Smoking Status: Never smoker Past Alcohol Use History: None Reported Past Drug Use History: None Reported - Past Family History Father Family Medical History: Coronary Artery Disease (CAD), Hypertension Mother Family Medical History: No Reported History <Yoav Alvarado M - Last Filed: 03/28/21 17:25> General Exam Limitations: no limitations General appearance: alert, in no apparent distress Head exam: Present: atraumatic, normocephalic, normal inspection Eye exam: Present: normal appearance, PERRL, EOMI. Absent: scleral icterus, conjunctival injection, periorbital swelling Neck exam: Present: normal inspection, full ROM. Absent: tenderness, lymphadenopathy Respiratory exam: Present: normal lung sounds bilaterally. Absent: respiratory distress, wheezes, rales, rhonchi, stridor Cardiovascular Exam: Present: regular rate, normal rhythm, normal heart sounds. Absent: systolic murmur, diastolic murmur, rubs, gallop, clicks GI/Abdominal exam: Present: soft, tenderness (Minimal diffuse), normal bowel sounds. Absent: distended, guarding, rebound, rigid Back exam: Absent: CVA tenderness (R), CVA tenderness (L) Neurological exam: Present: alert Skin exam: Present: warm, dry, intact, normal color. Absent: rash <Yoav Alvarado M - Last Filed: 03/28/21 17:25> Course Vital Signs 03/28/21 03/28/21 16:31 18:46 Temperature 98.0 F Pulse Rate 79 89 Respiratory 18 16 Rate Blood Pressure 167/103 157/77 O2 Sat by Pulse 97 98 Oximetry Medical Decision Making - Lab Data Result diagrams: 03/28/21 17:10 03/28/21 17:10 <Tommy Mars - Last Filed: 03/28/21 20:33> - Medical Decision Making Patient was signed out to me by MARIAN Cason at 1900 pending ultrasound results. Vitals are stable. Patient well appearing. Physical exam unremarkable. No abdominal tenderness. I did reevaluate patient. I reviewed laboratory evaluation which showed mild cytosis. CMP unremarkable. Urinalysis shows possible urinary tract infection, this will be cultured. CT did show a dilated gallbladder that was new compared to old exam from March 2020 and could relate to cholecystitis. Therefore ultrasound had been ordered which showed a dilated gallbladder suspicious for cholecystitis. No gallstones seen. No discrete liver mass. There is a large common bile duct consistent with gallbladder dysfunction as well. Dr. Ferraro discussed this case with Dr. Baker, who is environmental services aide for Dr Livingston, patient's previous surgeon. She would like to admit patient. We will start patient on antibiotics for possible cholecystitis. (Tommy Mars) - Lab Data Lab Results 03/28/21 03/28/21 03/28/21 Range/Units 17:10 17:10 17:10 WBC 11.3 H (3.8-10.6) k/uL RBC 4.43 (3.80-5.40) m/uL Hgb 13.0 (11.4-16.0) gm/dL Hct 38.8 (34.0-46.0) % MCV 87.6 (80.0-100.0) fL MCH 29.4 (25.0-35.0) pg MCHC 33.6 (31.0-37.0) g/dL RDW 13.7 (11.5-15.5) % Plt Count 215 (150-450) k/uL MPV 7.8 Neutrophils % (Manual) 67 % Band Neuts % (Manual) 1 % Lymphocytes % (Manual) 27 % Monocytes % (Manual) 4 % Eosinophils % (Manual) 1 % Neutrophils # (Manual) 7.60 (1.3-7.7) k/uL Lymphocytes # (Manual) 3.05 (1.0-4.8) k/uL Monocytes # (Manual) 0.45 (0-1.0) k/uL Eosinophils # (Manual) 0.11 (0-0.7) k/uL Nucleated RBCs 0 (0-0) /100 WBC Manual Slide Review Performed Sodium 138 (137-145) mmol/L Potassium 3.5 (3.5-5.1) mmol/L Chloride 109 H (98-107) mmol/L Carbon Dioxide 20 L (22-30) mmol/L Anion Gap 9 mmol/L BUN 16 (7-17) mg/dL Creatinine 1.31 H (0.52-1.04) mg/dL Est GFR (CKD-EPI)AfAm 43 (>60 ml/min/1.73 sqM) Est GFR (CKD-EPI)NonAf 38 (>60 ml/min/1.73 sqM) Glucose 131 H (74-99) mg/dL Plasma Lactic Acid Christiano (0.7-2.0) mmol/L Calcium 9.0 (8.4-10.2) mg/dL Total Bilirubin 0.5 (0.2-1.3) mg/dL AST 21 (14-36) U/L ALT 13 (4-34) U/L Alkaline Phosphatase 72 (38-126) U/L Troponin I (0.000-0.034) ng/mL Total Protein 6.3 (6.3-8.2) g/dL Albumin 3.7 (3.5-5.0) g/dL Amylase 56 (30-110) U/L Lipase 104 (23-300) U/L Urine Color Colorless Urine Appearance Cloudy H (Clear) Urine pH 6.5 (5.0-8.0) Ur Specific [place] 1.008 (1.001-1.035) Urine Protein Trace H (Negative) Urine Glucose (UA) Negative (Negative) Urine Ketones Negative (Negative) Urine Blood Small H (Negative) Urine Nitrite Negative (Negative) Urine Bilirubin Negative (Negative) Urine Urobilinogen <2.0 (<2.0) mg/dL Ur Leukocyte Esterase Large H (Negative) Urine RBC 11 H (0-5) /hpf Urine WBC 47 H (0-5) /hpf Ur Squamous Epith Cells 13 H (0-4) /hpf Urine Bacteria Few H (None) /hpf Urine Mucus Rare H (None) /hpf 03/28/21 03/28/21 Range/Units 17:10 17:10 WBC (3.8-10.6) k/uL RBC (3.80-5.40) m/uL Hgb (11.4-16.0) gm/dL Hct (34.0-46.0) % MCV (80.0-100.0) fL MCH (25.0-35.0) pg MCHC (31.0-37.0) g/dL RDW (11.5-15.5) % Plt Count (150-450) k/uL MPV Neutrophils % (Manual) % Band Neuts % (Manual) % Lymphocytes % (Manual) % Monocytes % (Manual) % Eosinophils % (Manual) % Neutrophils # (Manual) (1.3-7.7) k/uL Lymphocytes # (Manual) (1.0-4.8) k/uL Monocytes # (Manual) (0-1.0) k/uL Eosinophils # (Manual) (0-0.7) k/uL Nucleated RBCs (0-0) /100 WBC Manual Slide Review Sodium (137-145) mmol/L Potassium (3.5-5.1) mmol/L Chloride (98-107) mmol/L Carbon Dioxide (22-30) mmol/L Anion Gap mmol/L BUN (7-17) mg/dL Creatinine (0.52-1.04) mg/dL Est GFR (CKD-EPI)AfAm (>60 ml/min/1.73 sqM) Est GFR (CKD-EPI)NonAf (>60 ml/min/1.73 sqM) Glucose (74-99) mg/dL Plasma Lactic Acid Christiano 1.9 (0.7-2.0) mmol/L Calcium (8.4-10.2) mg/dL Total Bilirubin (0.2-1.3) mg/dL AST (14-36) U/L ALT (4-34) U/L Alkaline Phosphatase (38-126) U/L Troponin I <0.012 (0.000-0.034) ng/mL Total Protein (6.3-8.2) g/dL Albumin (3.5-5.0) g/dL Amylase (30-110) U/L Lipase (23-300) U/L Urine Color Urine Appearance (Clear) Urine pH (5.0-8.0) Ur Specific [place] (1.001-1.035) Urine Protein (Negative) Urine Glucose (UA) (Negative) Urine Ketones (Negative) Urine Blood (Negative) Urine Nitrite (Negative) Urine Bilirubin (Negative) Urine Urobilinogen (<2.0) mg/dL Ur Leukocyte Esterase (Negative) Urine RBC (0-5) /hpf Urine WBC (0-5) /hpf Ur Squamous Epith Cells (0-4) /hpf Urine Bacteria (None) /hpf Urine Mucus (None) /hpf Disposition <Yoav Alvarado - Last Filed: 03/28/21 17:25> Is patient prescribed a controlled substance at d/c from ED?: No Time of Disposition: 20:33 <Tommy Mars - Last Filed: 03/28/21 20:33> Clinical Impression: Vomiting, Cholecystitis Disposition: ADMITTED IP TO THIS [facility] Referrals: Eugenia Simmons [Nurse Nuclear Medical Technologist] - 1-2 days
[2021-03-28 17:38] LABS: Albumin 3.7 g/dL (3.5-5.0); Potassium 3.5 mmol/L (3.5-5.1); Total Bilirubin 0.5 mg/dL (0.2-1.3); Total Protein 6.3 g/dL (6.3-8.2)
[2021-03-28 17:46] LABS: Band Neutrophils % 1 %; Eosinophils # (M) 0.11 k/uL (0-0.7); Lymphocytes # (M) 3.05 k/uL (1.0-4.8); Monocytes # (M) 0.45 k/uL (0-1.0); Neutrophils % (M) 67 %; Nucleated Red Blood Cells 0 /100 WBC (0-0); Total Cells Counted 100
[2021-03-28] MEDS ORDERED: SODIUM CHLORIDE 0.9% 500 ML 500 ML IV ONE (18:31)
[2021-03-28] MEDS ORDERED: MECLIZINE 12.5 MG TAB PO STA (18:31)
--- NOTE | 2021-03-28 18:37 | CT ---
EXAMINATION TYPE: CT abdomen pelvis wo con DATE OF EXAM: 03/28/2021 COMPARISON: 03/26/2020 HISTORY: Abdominal pain and vomiting. CT DLP: 751.5 mGycm Automated exposure control for dose reduction was used. Images obtained from the diaphragm to the floor the pelvis with no contrast. There is some mild atelectasis at the lung bases. Heart size is normal. There is no pericardial effus ion. Liver spleen stomach appear intact. The bile ducts are not dilated. There is no pancreatic mass. Gallbladder is distended and measures 5.3 cm. There is previous surgery at the anterior stomach. Thi s is apparently gastrojejunal anastomosis. There is no adrenal mass. Kidneys have normal size. There is no hydronephrosis. Ureters are not dilat ed. There is no retroperitoneal adenopathy. Bladder distends smoothly. There is retained fecal materi al in the rectum. I see no mesenteric edema. There is no ascites or free air. There is no bowel obstruction. There is multilevel degenerative disc space narrowing and mild spur formation. There is slight lumba r levoscoliosis. The bony pelvis is intact. The hip joints are intact. IMPRESSION: There is apparent gastrojejunal anastomosis which is new compared to old exam. There is clearing of t he dilated stomach compared to old exam. Dilated gallbladder is new compared to old exam and could relate to cholecystitis. There is clearing of some inflammatory changes at the gastric antrum compared to old exam. Constipation.
[2021-03-28 18:52] LABS: Appearance,Urine Cloudy (Clear); Bacteria,Urine Few /hpf; Bilirubin,Urine Negative (Negative); Blood,Urine Small (Negative); Color,Urine Colorless; Glucose,Urine (UA) Negative (Negative); Ketones,Urine Negative (Negative); Leukocyte Esterase,Urine Large (Negative); Mucus,Urine Rare /hpf; Nitrite,Urine Negative (Negative); PH, Urine 6.5 (5.0-8.0); Protein,Urine Trace (Negative); RBC,Urine 11 /hpf (0-5); Specific Gravity,Urine 1.008 (1.001-1.035); Squamous Epithelial Cell,Urine 13 /hpf (0-4); Urobilinogen,Urine <2.0 mg/dL (<2.0); WBC,Urine 47 /hpf (0-5)
--- NOTE | 2021-03-28 19:50 | US ---
EXAMINATION TYPE: US gallbladder DATE OF EXAM: 03/28/2021 COMPARISON: CT CLINICAL HISTORY: pain. Pain, vomiting. EXAM MEASUREMENTS: Liver Length: 14.3 cm Gallbladder Wall: 0.28 cm CBD: 0.82 cm Right Kidney: 9.9 x 5.2 x 4.9 cm Limited due to gas and patient body habitus. Pancreas: Limited visibility of tail. Liver: Appears heterogeneous. Increased echogenicity. Gallbladder: Measures 9.1 cm in length and 4.9 cm in width. Appears to be anechoic. Fold seen. Evidence for sonographic Vasquez's sign: No CBD: Appears dilated. Right Kidney: Appears heterogeneous. Renal pelvis appears to be dilated IMPRESSION: Dilated gallbladder suspicious for cholecystitis. No gallstones seen. No discrete liver mass. Large c ommon bile duct consistent with gallbladder dysfunction..
[2021-03-28] MEDS ORDERED: NALOXONE 0.4 MG/ML 1 ML VIAL IV PRN (20:33)
[2021-03-28] MEDS ORDERED: ONDANSETRON 4 MG/2 ML VIAL IVP PRN (20:33)
[2021-03-28] MEDS ORDERED: HYDROmorphone 0.5 MG/0.5 ML SYRINGE IVP PRN (20:33)
[2021-03-28] MEDS ORDERED: ACETAMINOPHEN TAB 325 MG TAB PO PRN (20:33)
[2021-03-28] MEDS ORDERED: cefTRIAXone IN SWFI 1,000 MG/10 ML SYRINGE IVP STA (20:35)
[2021-03-28] MEDS: SODIUM CHLORIDE 0.9% 1,000 ML IV SCH (21:14)
[2021-03-29] MEDS: ACETAMINOPHEN TAB 500 MG TAB PO SCH ×3 (00:10→15:16)
[2021-03-29 06:33] LABS: HCT 42.9 % (34.0-46.0); HGB 13.8 gm/dL (11.4-16.0); Hypochromasia Slight; MCH 30.5 pg (25.0-35.0); MCHC 32.2 g/dL (31.0-37.0); Mean Platelet Volume 9.2; Platelet Count 169 k/uL (150-450); RBC 4.53 m/uL (3.80-5.40); RDW 13.5 % (11.5-15.5); WBC 11.2 k/uL (3.8-10.6)
[2021-03-29 06:35] LABS: MCV 94.7 fL (80.0-100.0)
[2021-03-29 06:47] LABS: Band Neutrophils % 1 %; Eosinophils # (M) 0.11 k/uL (0-0.7); Lymphocytes # (M) 3.25 k/uL (1.0-4.8); Monocytes # (M) 0.22 k/uL (0-1.0); Neutrophils % (M) 67 %; Nucleated Red Blood Cells 0 /100 WBC (0-0); Total Cells Counted 100
[2021-03-29] MEDS: lisinopriL 20 MG TAB PO SCH (08:04)
[2021-03-29] MEDS: HEPARIN SODIUM,PORCINE/PF 5,000 UNIT/0.5 ML SYRINGE SQ SCH ×3 (08:04→21:24)
[2021-03-29] MEDS: CHOLECALCIFEROL 25 MCG (1000 IU) TABLET PO SCH (08:05)
[2021-03-29] MEDS: allopurinoL 100 MG TAB PO SCH (08:05)
[2021-03-29] MEDS ORDERED: cefTRIAXone IN SWFI 1,000 MG/10 ML SYRINGE IVP SCH (09:00)
--- NOTE | 2021-03-29 14:11 | P.GSHP ---
History of Present Illness H&P Date: 03/29/21 CHIEF COMPLAINT: Nausea and vomiting HISTORY OF PRESENT ILLNESS: This is a 81-year-old female with a known history of gastric outlet obstruction status post gastrojejunostomy. She also has a history of hypertension, diverticulosis and surgical history of hysterectomy. Patient reports she had been in good health and yesterday after eating an apple Fretter she started to have nausea and vomiting. She also was feeling very weak. She denies abdominal pain. Denies any change in bowel habits. Denies any fever chills or sweats. Denies any urinary symptoms. Urinalysis had shown questionable UTI and was started on antibiotics ER. Gallbladder ultrasound showed dilated gallbladder suspicious for cholecystitis. No gallstones seen. No discrete liver mass. Large common bile duct consistent with gallbladder dysfunction. PAST MEDICAL HISTORY: See list. PAST SURGICAL HISTORY: See list. MEDICATIONS: See list. ALLERGIES: See list. SOCIAL HISTORY: No illicit drug use. REVIEW OF SYSTEMS: CONSTITUTIONAL: Denies fever or chills. HEENT: Denies blurred vision, vision changes, or eye pain. Denies hemoptysis CARDIOVASCULAR: Denies chest pain or pressure. RESPIRATORY: No shortness of breath. GASTROINTESTINAL: See HPI for pertinent findings HEMATOLOGIC: Denies bleeding disorders. GENITOURINARY: Denies any blood in urine or increased urinary frequency. SKIN: Denies pruitis. Denies rash. PHYSICAL EXAM: VITAL SIGNS: Reviewed GENERAL: Well-developed in no acute distress. HEENT: No sclera icterus. Extraocular movements grossly intact. Moist buccal mucosa. Head is atraumatic, normocephalic. No nasal drainage. ABDOMEN: Soft. Nondistended. Nontender NEUROLOGIC: Alert and oriented. Cranial nerves II through XII grossly intact. LABORATORY DATA: WBC 11.2 hemoglobin 13.8 Creatinine 1.31 LFTs normal lipase normal COVID-19 not detected IMAGING: Computed tomography scan of abdomen and pelvis shows dilated gallbladder is new compared to old exam and could relate cholecystitis. There is clearing of some inflammatory change at the gastric antrum compared to old exam Gallbladder ultrasound showed dilated gallbladder suspicious for cholecystitis. No gallstones seen. No discrete liver mass. Large common bile duct consistent with gallbladder dysfunction. ASSESSMENT: 1. Nausea and vomiting with gallbladder ultrasound showing evidence of dilated gallbladder suspicious for cholecystitis and large common bile duct consistent with gallbladder dysfunction 2. Cholecystitis 3. Gallbladder dysfunction 4. Possible UTI follow up on urine culture PLAN: -Patient is tentatively scheduled for a laparoscopic cholecystectomy tomorrow, 03/30/[address] Livingston -Start patient on low fat diet and then nothing by mouth after midnight -Consult medicine for medical management -Continue antibiotics -Continue IV fluids -Zinc oxide added for small skin breakdown noted on the left buttocks -GI prophylaxis Protonix and DVT prophylaxis subcu heparin Physician Sonography Technician note has been reviewed by physician. Signing provider agrees with the documented findings, assessment, and plan of care. Past Medical History Past Medical History: Hypertension Additional Past Medical History / Comment(s): Diverticulitis History of Any Multi-Drug Resistant Organisms: None Reported Past Surgical History: Hysterectomy Past Anesthesia/Blood Transfusion Reactions: No Reported Reaction Past Psychological History: No Psychological Hx Reported Smoking Status: Never smoker Past Alcohol Use History: None Reported Past Drug Use History: None Reported - Past Family History Father Family Medical History: Coronary Artery Disease (CAD), Hypertension Mother Family Medical History: No Reported History Medications and Allergies Home Medications Medication Instructions Recorded Confirmed Type ALPRAZolam [Xanax] 0.25 mg PO DAILY PRN 03/26/20 03/28/21 History Cholecalciferol [Vitamin D3 (25 5,000 unit PO DAILY 03/26/20 03/28/21 History Mcg = 1000 Iu)] Enalapril Maleate 20 mg PO DAILY 03/28/21 03/28/21 History allopurinoL [Zyloprim] 50 mg PO DAILY 03/28/21 03/28/21 History Allergies Allergy/AdvReac Type Severity Reaction Status Date / Time Penicillins Allergy Unknown Verified 03/28/21 17:24 Surgical - Exam Vital Signs Temp Pulse Resp BP Pulse Ox 98.0 F 79 18 167/103 97 03/28/21 16:31 03/28/21 16:31 03/28/21 16:31 03/28/21 16:31 03/28/21 16:31 Results - Labs 03/29/21 06:05 03/28/21 17:10 Abnormal Lab Results - Last 24 Hours (Table) 03/28/21 03/28/21 03/28/21 Range/Units 17:10 17:10 17:10 WBC 11.3 H (3.8-10.6) k/uL Chloride 109 H (98-107) mmol/L Carbon Dioxide 20 L (22-30) mmol/L Creatinine 1.31 H (0.52-1.04) mg/dL Glucose 131 H (74-99) mg/dL Urine Appearance Cloudy H (Clear) Urine Protein Trace H (Negative) Urine Blood Small H (Negative) Ur Leukocyte Esterase Large H (Negative) Urine RBC 11 H (0-5) /hpf Urine WBC 47 H (0-5) /hpf Ur Squamous Epith Cells 13 H (0-4) /hpf Urine Bacteria Few H (None) /hpf Urine Mucus Rare H (None) /hpf 03/29/21 Range/Units 06:05 WBC 11.2 H (3.8-10.6) k/uL Chloride (98-107) mmol/L Carbon Dioxide (22-30) mmol/L Creatinine (0.52-1.04) mg/dL Glucose (74-99) mg/dL Urine Appearance (Clear) Urine Protein (Negative) Urine Blood (Negative) Ur Leukocyte Esterase (Negative) Urine RBC (0-5) /hpf Urine WBC (0-5) /hpf Ur Squamous Epith Cells (0-4) /hpf Urine Bacteria (None) /hpf Urine Mucus (None) /hpf Microbiology - Last 24 Hours (Table) 03/28/21 17:10 Urine Culture - Preliminary Urine,Voided Diabetes panel 03/28/21 Range/Units 17:10 Sodium 138 (137-145) mmol/L Potassium 3.5 (3.5-5.1) mmol/L Chloride 109 H (98-107) mmol/L Carbon Dioxide 20 L (22-30) mmol/L BUN 16 (7-17) mg/dL Creatinine 1.31 H (0.52-1.04) mg/dL Glucose 131 H (74-99) mg/dL Calcium 9.0 (8.4-10.2) mg/dL AST 21 (14-36) U/L ALT 13 (4-34) U/L Alkaline Phosphatase 72 (38-126) U/L Total Protein 6.3 (6.3-8.2) g/dL Albumin 3.7 (3.5-5.0) g/dL Calcium panel 03/28/21 Range/Units 17:10 Calcium 9.0 (8.4-10.2) mg/dL Albumin 3.7 (3.5-5.0) g/dL Pituitary panel 03/28/21 Range/Units 17:10 Sodium 138 (137-145) mmol/L Potassium 3.5 (3.5-5.1) mmol/L Chloride 109 H (98-107) mmol/L Carbon Dioxide 20 L (22-30) mmol/L BUN 16 (7-17) mg/dL Creatinine 1.31 H (0.52-1.04) mg/dL Glucose 131 H (74-99) mg/dL Calcium 9.0 (8.4-10.2) mg/dL Adrenal panel 03/28/21 Range/Units 17:10 Sodium 138 (137-145) mmol/L Potassium 3.5 (3.5-5.1) mmol/L Chloride 109 H (98-107) mmol/L Carbon Dioxide 20 L (22-30) mmol/L BUN 16 (7-17) mg/dL Creatinine 1.31 H (0.52-1.04) mg/dL Glucose 131 H (74-99) mg/dL Calcium 9.0 (8.4-10.2) mg/dL Total Bilirubin 0.5 (0.2-1.3) mg/dL AST 21 (14-36) U/L ALT 13 (4-34) U/L Alkaline Phosphatase 72 (38-126) U/L Total Protein 6.3 (6.3-8.2) g/dL Albumin 3.7 (3.5-5.0) g/dL
[2021-03-29 14:55] LABS: African American GFR (CKD) 48.4 (60.0-200.0); Albumin 3.9 g/dL (3.80-4.90); Albumin/Globulin Ratio 2.05 (1.60-3.17); Anion Gap 14.9 mmol/L (4.00-12.00); BUN/Creat Ratio 11.67 Ratio (12.00-20.00); Calcium 8.5 mg/dL (8.7-10.3); Carbon Dioxide 18.1 mmol/L (21.6-31.8); Globulin 1.9 g/dL (1.6-3.3); Non-African American GFR(CKD) 41.8 (60.0-200.0); Potassium 4.3 mmol/L (3.5-5.5); Total Bilirubin 0.3 mg/dL (0.2-1.2); Total Protein 5.8 g/dL (6.2-8.2)
[2021-03-29] MEDS: ALPRAZolam 0.25 MG TAB PO PRN (14:57)
[2021-03-29] MEDS: PANTOPRAZOLE 40 MG TABLET PO SCH (14:57)
--- NOTE | 2021-03-29 17:06 | P.CONS ---
History of Present Illness - Reason for Consult Consult date: 03/29/21 Medical management Requesting physician: Geovanni Livingston - Chief Complaint Nausea and vomiting - History of Present Illness Nausea and vomiting. Patient was evaluated in the ER and currently admitted under Gen. surgery with possible acute cholecystitis. I was asked to see her for medical management. Patient is doing fairly well at the time of my evaluation. She denies any abdominal pain or nausea/vomiting at this time. She said that she is fairly active usually and is able to climb one flight of stairs with no difficulty. She denies any chest pain or shortness of breath at this time Review of Systems Review of system: 14 points review of systems were obtained and were negative except to what were mentioned in the HPI. Past Medical History Past Medical History: Hypertension Additional Past Medical History / Comment(s): Diverticulitis History of Any Multi-Drug Resistant Organisms: None Reported Past Surgical History: Hysterectomy Past Anesthesia/Blood Transfusion Reactions: No Reported Reaction Past Psychological History: No Psychological Hx Reported Smoking Status: Never smoker Past Alcohol Use History: None Reported Past Drug Use History: None Reported - Past Family History Father Family Medical History: Coronary Artery Disease (CAD), Hypertension Mother Family Medical History: No Reported History Medications and Allergies Home Medications Medication Instructions Recorded Confirmed Type ALPRAZolam [Xanax] 0.25 mg PO DAILY PRN 03/26/20 03/28/21 History Cholecalciferol [Vitamin D3 (25 5,000 unit PO DAILY 03/26/20 03/28/21 History Mcg = 1000 Iu)] Enalapril Maleate 20 mg PO DAILY 03/28/21 03/28/21 History allopurinoL [Zyloprim] 50 mg PO DAILY 03/28/21 03/28/21 History Allergies Allergy/AdvReac Type Severity Reaction Status Date / Time Penicillins Allergy Unknown Verified 03/28/21 17:24 Physical Exam Vitals: Vital Signs Temp Pulse Pulse Resp BP BP Pulse Ox 03/29/21 14:00 97.9 F 64 16 146/78 03/29/21 07:30 98.1 F 61 16 167/70 96 03/29/21 07:29 72 18 03/29/21 02:30 97.6 F 72 18 167/75 98 03/28/21 21:53 97.7 F 76 18 153/76 98 03/28/21 18:46 89 16 157/77 98 Intake and Output 03/29/21 03/29/21 03/29/21 06:59 14:59 22:59 Intake Total 600 Balance 600 Intake: Intake, IV Titration 600 Amount Sodium Chloride 0.9% 1, 500 000 ml @ 50 mls/hr IV . Q20H BEST Rx#:[id number] cefTRIAXone 1 gm In 100 Sodium Chloride 0.9% 50 ml @ 100 mls/hr IVPB Q24HR [facility]ST Rx#:[id number] Other: # Voids 2 2 4 General: The patient is awake and alert, in no distress Eye: there is normal conjunctiva bilaterally. Neck: The neck is supple, there is no JVD. Cardiovascular: Normal S1-S2, no S3-S4, no murmurs. Respiratory: Lungs clear to auscultation bilaterally Gastrointestinal: Abdomen is soft, nontender Musculoskeletal: There is no pedal edema. Neurological:. Speech is normal. Skin: Skin is warm and dry Results CBC & Chem 7: 03/29/21 06:05 03/29/21 06:05 Labs: Abnormal Lab Results - Last 24 Hours (Table) 03/28/21 03/28/21 03/28/21 Range/Units 17:10 17:10 17:10 WBC 11.3 H (3.8-10.6) k/uL Chloride 109 H (98-107) mmol/L Carbon Dioxide 20 L (22-30) mmol/L Anion Gap (4.00-12.00) mmol/L Creatinine 1.31 H (0.52-1.04) mg/dL Est GFR (CKD-EPI)AfAm (60.0-200.0) Est GFR (CKD-EPI)NonAf (60.0-200.0) BUN/Creatinine Ratio (12.00-20.00) Ratio Glucose 131 H (74-99) mg/dL Calcium (8.7-10.3) mg/dL Total Protein (6.2-8.2) g/dL Urine Appearance Cloudy H (Clear) Urine Protein Trace H (Negative) Urine Blood Small H (Negative) Ur Leukocyte Esterase Large H (Negative) Urine RBC 11 H (0-5) /hpf Urine WBC 47 H (0-5) /hpf Ur Squamous Epith Cells 13 H (0-4) /hpf Urine Bacteria Few H (None) /hpf Urine Mucus Rare H (None) /hpf 03/29/21 03/29/21 Range/Units 06:05 06:05 WBC 11.2 H (3.8-10.6) k/uL Chloride 112 H (98-107) mmol/L Carbon Dioxide 18.1 L (22-30) mmol/L Anion Gap 14.90 H (4.00-12.00) mmol/L Creatinine (0.52-1.04) mg/dL Est GFR (CKD-EPI)AfAm 48.4 L (60.0-200.0) Est GFR (CKD-EPI)NonAf 41.8 L (60.0-200.0) BUN/Creatinine Ratio 11.67 L (12.00-20.00) Ratio Glucose (74-99) mg/dL Calcium 8.5 L (8.7-10.3) mg/dL Total Protein 5.8 L (6.2-8.2) g/dL Urine Appearance (Clear) Urine Protein (Negative) Urine Blood (Negative) Ur Leukocyte Esterase (Negative) Urine RBC (0-5) /hpf Urine WBC (0-5) /hpf Ur Squamous Epith Cells (0-4) /hpf Urine Bacteria (None) /hpf Urine Mucus (None) /hpf Microbiology - Last 24 Hours (Table) 03/28/21 17:10 Urine Culture - Preliminary Urine,Voided Assessment and Plan Assessment: This is a 81-year-old female with past medical history noted below the presented to the hospital with nonspecific nausea and vomiting. Patient was evaluated and admitted under Gen. surgery for further management of her medical problems noted below. 1. Suspected acute cholecystitis, Gen. surgery to make final decision about possible cholecystectomy tomorrow 2. Questionable UTI, patient is a symptomatic and urine sample was clearly contaminated. Patient was started on IV ceftriaxone empirically which we will continue. I would order repeat urinalysis/culture. 3. Stage III chronic kidney disease 4. History of gastric outlet obstruction status post gastrojejunostomy 5. DVT prophylaxis with subcu heparin Today, I reviewed her medication list and lab work results. Continue current regimen. Thank you very much for the consultation. I will continue to follow up on the patient closely with you.
[2021-03-29] MEDS: SODIUM CHLORIDE 0.9% 1,000 ML IV SCH (20:45)
[2021-03-29] MEDS: ZINC OXIDE 20% OINT 28.4 GM TUBE TOPICAL SCH (21:24)
[2021-03-30] MEDS: ACETAMINOPHEN TAB 500 MG TAB PO SCH ×4 (02:02→11:58)
[2021-03-30 06:47] LABS: Appearance,Urine Clear (Clear); Bacteria,Urine Rare /hpf; Bilirubin,Urine Negative (Negative); Blood,Urine Small (Negative); Color,Urine Light Yellow; Glucose,Urine (UA) Negative (Negative); Ketones,Urine Negative (Negative); Leukocyte Esterase,Urine Negative (Negative); Mucus,Urine Rare /hpf; Nitrite,Urine Negative (Negative); Protein,Urine Negative (Negative); RBC,Urine 1 /hpf (0-5); Specific Gravity,Urine 1.008 (1.001-1.035); Squamous Epithelial Cell,Urine 1 /hpf (0-4); Urobilinogen,Urine <2.0 mg/dL (<2.0); WBC,Urine 2 /hpf (0-5)
[2021-03-30 07:14] LABS: Basophils # (A) 0.1 k/uL (0-0.2); Basophils % (A) 1 %; Eosinophils # (A) 0.3 k/uL (0-0.7); Eosinophils % (A) 3 %; HCT 40.4 % (34.0-46.0); HGB 13.5 gm/dL (11.4-16.0); Lymphocytes # (A) 2.2 k/uL (1.0-4.8); Lymphocytes % (A) 22 %; MCH 29.9 pg (25.0-35.0); MCHC 33.3 g/dL (31.0-37.0); Mean Platelet Volume 8.1; Monocytes # (A) 0.8 k/uL (0-1.0); Monocytes % (A) 8 %; Neutrophils # (A) 6.2 k/uL (1.3-7.7); Neutrophils % (A) 62 %; Platelet Count 219 k/uL (150-450); RBC 4.51 m/uL (3.80-5.40); RDW 13.4 % (11.5-15.5)
[2021-03-30 07:21] LABS: MCV 89.6 fL (80.0-100.0)
[2021-03-30 07:32] LABS: ALT 17 U/L (4-34); AST 30 U/L (14-36); African American GFR (CKD) 41 (>60 ml/min/1.73 sqM); Albumin 3.7 g/dL (3.5-5.0); Albumin/Globulin Ratio 1.4; Alkaline Phosphatase 73 U/L (38-126); Anion Gap 8 mmol/L; Blood Urea Nitrogen 17 mg/dL (7-17); Calcium 9.2 mg/dL (8.4-10.2); Carbon Dioxide 24 mmol/L (22-30); Chloride 112 mmol/L (98-107); Globulin 2.7 g/dL; Glucose 80 mg/dL (74-99); Non-African American GFR(CKD) 35 (>60 ml/min/1.73 sqM); Sodium 144 mmol/L (137-145); Total Bilirubin 0.5 mg/dL (0.2-1.3); Total Protein 6.4 g/dL (6.3-8.2)
[2021-03-30] MEDS: lisinopriL 20 MG TAB PO SCH (07:39)
[2021-03-30] MEDS: HEPARIN SODIUM,PORCINE/PF 5,000 UNIT/0.5 ML SYRINGE SQ SCH ×2 (07:44→20:02)
[2021-03-30] MEDS: ZINC OXIDE 20% OINT 28.4 GM TUBE TOPICAL SCH ×2 (07:44→21:21)
[2021-03-30] MEDS: PANTOPRAZOLE 40 MG TABLET PO SCH (07:44)
[2021-03-30] MEDS: allopurinoL 100 MG TAB PO SCH (07:44)
[2021-03-30] MEDS: CHOLECALCIFEROL 25 MCG (1000 IU) TABLET PO SCH (07:44)
[2021-03-30] MEDS: SODIUM CHLORIDE 0.9% 1,000 ML IV SCH ×2 (07:45→14:49)
[2021-03-30] MEDS ORDERED: SODIUM CHLORIDE 0.9% 1,000 ML IV ONE (12:20)
[2021-03-30] MEDS ORDERED: HEPARIN SODIUM,PORCINE 5,000 UNIT/ML 1 ML VIAL SQ ONE (12:24)
[2021-03-30] MEDS ORDERED: NEOSTIGMINE 1 MG/ML 10 ML VIAL ONE (12:53)
[2021-03-30] MEDS ORDERED: ePHEDrine SULFATE/0.9% NACL/PF 50 MG/5 ML SYRINGE IV ONE (12:53)
[2021-03-30] MEDS ORDERED: fentaNYL (PF) 50 MCG/ML 2 ML AMP ONE (12:53)
[2021-03-30] MEDS ORDERED: MIDAZOLAM 2 MG/2 ML VIAL ONE (12:53)
[2021-03-30] MEDS ORDERED: PROPOFOL 10 MG/ML 20 ML VIAL IV ONE (12:53)
[2021-03-30] MEDS ORDERED: GLYCOPYRROLATE 0.2 MG/ML 2 ML VIAL ONE (12:53)
[2021-03-30] MEDS ORDERED: CLINDAMYCIN 150 MG/ML 4 ML VIAL ONE (12:53)
[2021-03-30] MEDS ORDERED: LABETALOL 5 MG/ML VIAL MDV ONE (12:53)
[2021-03-30] MEDS ORDERED: LIDOCAINE 1% INJ 10MG/ML (20 ML MDV) ONE (12:53)
[2021-03-30] MEDS ORDERED: SUCCINYLCHOLINE CHLORIDE 100 MG/5 ML SYR IV ONE (12:53)
[2021-03-30] MEDS ORDERED: ROCURONIUM 10 MG/ML (5 ML VIAL) IV ONE (12:53)
--- NOTE | 2021-03-30 13:03 | P.PN ---
Subjective Progress Note Date: 03/30/21 Patient is doing fairly well today. She was anxious about having her surgery later on. She denies any abdominal pain. Objective - Vital Signs Vital signs: Vital Signs Temp 98.0 F 03/30/21 12:20 Pulse 80 03/30/21 12:20 Resp 17 03/30/21 12:20 BP 221/95 03/30/21 12:20 Pulse Ox 94 L 03/30/21 12:20 Intake & Output 03/29/21 03/30/21 03/30/21 18:59 06:59 18:59 Intake Total 100 Balance 100 Intake: IV 100 Other: Voiding Method Toilet # Voids 1 2 - Exam General: The patient is awake and alert, in no distress Eye: there is normal conjunctiva bilaterally. Neck: The neck is supple, there is no JVD. Cardiovascular: Normal S1-S2, no S3-S4, no murmurs. Respiratory: Lungs clear to auscultation bilaterally Gastrointestinal: Abdomen is soft, nontender Musculoskeletal: There is no pedal edema. Neurological:. Speech is normal. Skin: Skin is warm and dry - Labs CBC & Chem 7: 03/30/21 06:18 03/30/21 06:18 Labs: Abnormal Lab Results - Last 24 Hours (Table) 03/29/21 03/30/21 03/30/21 Range/Units 06:05 06:15 06:18 Chloride 112 H 112 H (96-109) mmol/L Carbon Dioxide 18.1 L (21.6-31.8) mmol/L Anion Gap 14.90 H (4.00-12.00) mmol/L Creatinine 1.39 H (0.52-1.04) mg/dL Est GFR (CKD-EPI)AfAm 48.4 L (60.0-200.0) Est GFR (CKD-EPI)NonAf 41.8 L (60.0-200.0) BUN/Creatinine Ratio 11.67 L (12.00-20.00) Ratio Calcium 8.5 L (8.7-10.3) mg/dL Total Protein 5.8 L (6.2-8.2) g/dL Urine Blood Small H (Negative) Urine Bacteria Rare H (None) /hpf Urine Mucus Rare H (None) /hpf Microbiology - Last 24 Hours (Table) 03/28/21 20:54 Blood Culture - Preliminary Blood No Growth after 24 hours 03/28/21 20:39 Blood Culture - Preliminary Blood No Growth after 24 hours 03/28/21 17:10 Urine Culture - Final Urine,Voided Assessment and Plan Assessment: This is a 81-year-old female with past medical history noted below the presented to the hospital with nonspecific nausea and vomiting. Patient was evaluated and admitted under Gen. surgery for further management of her medical problems noted below. 1. Suspected acute cholecystitis, plan for laparoscopic cholecystectomy today. 2. Questionable UTI, patient is a symptomatic and urine sample was clearly c ontaminated. Repeat urinalysis was unremarkable. Discontinue antibiotic tomorrow 3. Stage III chronic kidney disease 4. History of gastric outlet obstruction status post gastrojejunostomy 5. DVT prophylaxis with subcu heparin Today, I reviewed her medication list and lab work results. Continue current regimen. Thank you very much for the consultation. I will continue to follow up on the patient closely with you.
[2021-03-30] MEDS ORDERED: BUPIVACAIN-EPI 0.5%-1:200,000 30 ML VIAL SQ ONE ×2 (13:24)
--- NOTE | 2021-03-30 13:42 | P.OP ---
Date of Procedure: 03/30/21 Preoperative Diagnosis: cholecystitis Postoperative Diagnosis: cholecystitis Procedure(s) Performed: laparoscopic cholecystectomy Anesthesia: KYLEE Surgeon: Geovanni Livingston Estimated Blood Loss (ml): 10 Pathology: other (gallbladder) Condition: stable Disposition: PACU Description of Procedure: The patient was placed on the operating table. The patient received a general endotracheal tube anesthesia. The patients abdomen was prepped and draped in the usual sterile fashion. Through an infraumbilical stab incision, the fascia of the anterior abdominal wall was grasped with a pair of Kochers and then the Veress needle was placed in the peritoneal cavity. Position of the Veress needle was confirmed with positive drop test. The abdomen was then insufflated. After adequate insufflation, the 10 mm trocar was placed in the peritoneal cavity. Following this the laparoscope was placed in the peritoneal cavity. The patient was placed in the head-up, right side up position and then a 5 mm trocar was placed in the right lateral and right subcostal position under direct visualization. A 8 mm trocar was placed in the epigastric position. The gallbladder was grasped in the fundus and infundibulum. Traction on the gallbladder was placed in the lateral and the cephalad positions. The triangle of Calot was visualized.. The cystic duct was bluntly dissected until the union of the cystic duct and common bile duct was seen. A critical view of safety was achieved. The cystic duct was then divided and sealed with the Harmonic scissors. A PDS Endoloop was then placed throughout the cystic duct stump. The cystic artery divided and sealed with the Harmonic scissors. The gallbladder was then removed from the liver bed using Harmonic scissors. The gallbladder was then extracted through the epigastric port site. Operative field was checked for any bleeding spots and Harmonic scissors was used to coagulate the liver bed. The abdomen was irrigated. The trocars were removed. The skin was closed using interrupted 3-0 Vicryl suture. Dermabond dressing were applied. The patient tolerated the procedure well.
[2021-03-30] MEDS ORDERED: HYDROmorphone 0.5 MG/0.5 ML SYRINGE IVP ONE (14:10)
[2021-03-30] MEDS ORDERED: HYDROcodone/APAP 5-325MG 1 EACH TAB PO PRN (14:21)
[2021-03-30] MEDS ORDERED: hydrALAZINE HCL 20 MG/ML 1 ML VIAL IVP ONE (14:27)
[2021-03-30] MEDS: ALPRAZolam 0.25 MG TAB PO PRN (20:02)
[2021-03-30] MEDS ORDERED: BENZOCAINE/MENTHOL LOZENG 1 EACH LOZENGE MUCOUS MEM PRN (20:11)
[2021-03-31 08:17] VITALS: BP 169/78; PULSE 81; RESP 16; TEMP 97.8
[2021-03-31] MEDS: ZINC OXIDE 20% OINT 28.4 GM TUBE TOPICAL SCH (08:53)
[2021-03-31] MEDS: PANTOPRAZOLE 40 MG TABLET PO SCH (08:54)
[2021-03-31] MEDS: lisinopriL 20 MG TAB PO SCH (08:54)
[2021-03-31] MEDS: HEPARIN SODIUM,PORCINE/PF 5,000 UNIT/0.5 ML SYRINGE SQ SCH (08:55)
[2021-03-31] MEDS: allopurinoL 100 MG TAB PO SCH (08:55)
[2021-03-31] MEDS: CHOLECALCIFEROL 25 MCG (1000 IU) TABLET PO SCH (08:55)
--- NOTE | 2021-03-31 10:57 | P.PN ---
Subjective Progress Note Date: 03/31/21 Principal diagnosis: Cholecystitis Patient doing well today. Denies pain. Tolerating diet. She would like to go home. Objective - Vital Signs Vital signs: Vital Signs Temp 97.8 F 03/31/21 08:00 Pulse 81 03/31/21 08:00 Resp 16 03/31/21 08:00 BP 169/78 03/31/21 08:00 Pulse Ox 95 03/31/21 08:00 Intake & Output 03/30/21 03/31/21 03/31/21 18:59 06:59 18:59 Intake Total 850 Output Total 10 Balance 840 Intake: IV 850 Output: Estimated Blood Loss 10 Other: Voiding Method Toilet Toilet Toilet # Voids 3 1 - Exam Abdomen: Soft, nondistended, incisions clean and dry, mild incisional tenderness - Labs CBC & Chem 7: 03/30/21 06:18 03/30/21 06:18 Labs: Microbiology - Last 24 Hours (Table) 03/28/21 20:39 Blood Culture - Preliminary Blood No Growth after 48 hours 03/28/21 20:54 Blood Culture - Preliminary Blood No Growth after 48 hours Assessment and Plan (1) Cholecystitis Narrative/Plan: Patient doing well today. Probable discharge if cleared by consultants. Current Visit: Yes Status: Acute Code(s): K81.9 - CHOLECYSTITIS, UNSPECIFIED SNOMED Code(s): 47213138
--- NOTE | 2021-03-31 12:24 | P.PN ---
Subjective Progress Note Date: 03/31/21 Patient is doing well today. She denies any abdominal pain. She had a bowel movement this morning. Objective - Vital Signs Vital signs: Vital Signs Temp 97.8 F 03/31/21 08:00 Pulse 81 03/31/21 08:00 Resp 16 03/31/21 08:00 BP 169/78 03/31/21 08:00 Pulse Ox 95 03/31/21 08:00 Intake & Output 03/30/21 03/31/21 03/31/21 18:59 06:59 18:59 Intake Total 850 150 Output Total 10 Balance 840 150 Intake: IV 850 Oral 150 Output: Estimated Blood Loss 10 Other: Voiding Method Toilet Toilet Toilet # Voids 3 1 2 # Bowel Movements 1 - Exam General: The patient is awake and alert, in no distress Eye: there is normal conjunctiva bilaterally. Neck: The neck is supple, there is no JVD. Cardiovascular: Normal S1-S2, no S3-S4, no murmurs. Respiratory: Lungs clear to auscultation bilaterally Gastrointestinal: Abdomen is soft, nontender Musculoskeletal: There is no pedal edema. Neurological:. Speech is normal. Skin: Skin is warm and dry - Labs CBC & Chem 7: 03/30/21 06:18 03/30/21 06:18 Labs: Microbiology - Last 24 Hours (Table) 03/28/21 20:39 Blood Culture - Preliminary Blood No Growth after 48 hours 03/28/21 20:54 Blood Culture - Preliminary Blood No Growth after 48 hours Assessment and Plan Assessment: This is a 81-year-old female with past medical history noted below the presented to the hospital with nonspecific nausea and vomiting. Patient was evaluated and admitted under Gen. surgery for further management of her medical problems noted below. 1. Suspected acute cholecystitis, s/p laparoscopic cholecystectomy 2. Questionable UTI, patient is a symptomatic and urine sample was clearly contaminated. Repeat urinalysis was unremarkable. Discontinue antibiotic 3. Stage III chronic kidney disease 4. History of gastric outlet obstruction status post gastrojejunostomy Patient is medically cleared for discharge
== END 2021-03-31 12:30 | disposition home or self-care (01) | DRG 419 ==
LOC: EC 16:29 → 4SSUR 20:31 → OBSVTOIN 03-30 08:50
PROVIDERS: ADMIT Surgery; ATTEND Surgery
PROC: 0FT44ZZ Resection of Gallbladder, Percutaneous Endoscopic Approach (ICD-10-PCS; principal; 2021-03-30 11:35)
DX: K81.0 Acute cholecystitis (principal); I12.9 Hypertensive chronic kidney disease with stage 1 through stage 4 chronic kidney disease, or unspecified chronic kidney disease; N18.30 Chronic kidney disease, stage 3 unspecified; F41.9 Anxiety disorder, unspecified; Z20.822 Contact with and (suspected) exposure to COVID-19; K57.90 Diverticulosis of intestine, part unspecified, without perforation or abscess without bleeding; K82.8 Other specified diseases of gallbladder; Z79.899 Other long term (current) drug therapy; Z87.19 Personal history of other diseases of the digestive system; Z90.710 Acquired absence of both cervix and uterus; Z87.42 Personal history of other diseases of the female genital tract; Z98.890 Other specified postprocedural states; Z88.0 Allergy status to penicillin; Z82.49 Family history of ischemic heart disease and other diseases of the circulatory system
CPT/HCPCS: 36415; 74176; 76705; 80053; 81001; 82150; 83605; 83690; 84484; 85025; 87040; 87086; 87635; 88304; 93005; 96361; 96374; 96375; 99285

== ENCOUNTER → 2021-05-22 | Outpatient (CLI) | payer MEDICARE | END | disposition home or self-care (01) | CPT/HCPCS: 76770 ==

== ENCOUNTER 2022-02-28 13:50 | Observation (INO) | payer MEDICARE ==
[2022-02-28] MEDS ORDERED: SODIUM CHLORIDE 0.9% 500 ML 500 ML IV STA (14:13)
[2022-02-28] MEDS ORDERED: MECLIZINE 25 MG TAB PO STA (14:15)
[2022-02-28] MEDS ORDERED: ONDANSETRON 4 MG/2 ML VIAL IVP STA (14:15)
[2022-02-28] MEDS ORDERED: DIAZEPAM 5 MG/ML 2 ML INJ IVP STA (14:15)
[2022-02-28 14:35] LABS: Prothrombin Time 10.6 sec (9.0-12.0)
[2022-02-28 14:39] LABS: Albumin 3.6 g/dL (3.5-5.0); Calcium 8.7 mg/dL (8.4-10.2); HCT 38.5 % (34.0-46.0); HGB 12.9 gm/dL (11.4-16.0); MCH 30.6 pg (25.0-35.0); MCHC 33.5 g/dL (31.0-37.0); MCV 91.2 fL (80.0-100.0); Magnesium 1.5 mg/dL (1.6-2.3); Mean Platelet Volume 7.7; Platelet Count 244 k/uL (150-450); Potassium 3.4 mmol/L (3.5-5.1); RBC 4.23 m/uL (3.80-5.40); RDW 14.2 % (11.5-15.5); Total Bilirubin 0.6 mg/dL (0.2-1.3); Total Protein 6.5 g/dL (6.3-8.2); WBC 11.8 k/uL (3.8-10.6)
[2022-02-28 14:41] LABS: Partial Thromboplastin Time 21.6 sec (22.0-30.0)
--- NOTE | 2022-02-28 14:49 | ED ---
General Adult HPI - General Chief complaint: Dizziness Stated complaint: Nausea/Dizziness Time Seen by Provider: 02/28/22 13:55 Source: patient, EMS, RN notes reviewed, old records reviewed Mode of arrival: EMS Limitations: physical limitation - History of Present Illness Initial comments: This is a 82-year-old female who states she was walking on the sternum when all of a sudden she became very dizzy and everything around her soon-to-be spinning. Patient states shortly thereafter she became nauseated and started vomiting. Patient denies headache patient denies numbness weakness. Patient denies any palpitations or heart or chest pain. Patient denies any shortness of breath or difficulty breathing. Patient denies any abdominal pain. Patient states she's just so dizzy she feels nauseated. Patient denies any recent fever chills or cough per patient denies a history of similar. Patient denies any ear pain or deafness. Patient denies any tinnitus. - Related Data Home Medications Medication Instructions Recorded Confirmed ALPRAZolam [Xanax] 0.25 mg PO DAILY PRN 03/26/20 02/28/22 Enalapril Maleate 10 mg PO DAILY 03/28/21 02/28/22 Azithromycin See Taper PO DIRECTED 02/28/22 02/28/22 Cholecalciferol [Vitamin D3 (125 375 mcg PO DAILY 02/28/22 02/28/22 Mcg = 5000 Iu)] Sodium Bicarbonate Tab 650 mg PO DAILY 02/28/22 02/28/22 Allergies Allergy/AdvReac Type Severity Reaction Status Date / Time Penicillins Allergy Rash/Hives Verified 02/28/22 15:58 Review of Systems ROS Statement: Those systems with pertinent positive or pertinent negative responses have been documented in the HPI. ROS Other: All systems not noted in ROS Statement are negative. Past Medical History Past Medical History: Hypertension Additional Past Medical History / Comment(s): Diverticulitis History of Any Multi-Drug Resistant Organisms: None Reported Past Surgical History: Cholecystectomy, Hysterectomy Past Anesthesia/Blood Transfusion Reactions: No Reported Reaction Past Psychological History: No Psychological Hx Reported Smoking Status: Never smoker Past Alcohol Use History: None Reported Past Drug Use History: None Reported - Past Family History Father Family Medical History: Coronary Artery Disease (CAD), Hypertension Mother Family Medical History: No Reported History General Exam - General Exam Comments Initial Comments: GENERAL: Patient is well-developed and well-nourished. Patient is nontoxic and well- hydrated and is in mild distress. ENT: Neck is soft and supple. No significant lymphadenopathy is noted. Oropharynx is clear. Moist mucous membranes. Neck has full range of motion without eliciting any pain. EYES: The sclera were anicteric and conjunctiva were pink and moist. Patient has horizontal nystagmus. Extraocular movements were intact and pupils were equal round and reactive to light. Eyelids were unremarkable. PULMONARY: Unlabored respirations. Good breath sounds bilaterally. No audible rales rhonchi or wheezing was noted. CARDIOVASCULAR: There is a regular rate and rhythm without any murmurs gallops or rubs. ABDOMEN: Soft and nontender with normal bowel sounds. SKIN: Skin is clear with no lesions or rashes and otherwise unremarkable. NEUROLOGIC: Patient is alert and oriented x3. Cranial nerves II through XII are grossly intact. Motor and sensory are also intact. Normal speech, volume and content. Symmetrical smile. MUSCULOSKELETAL: Normal extremities with adequate strength and full range of motion. No lower extremity swelling or edema. No calf tenderness. LYMPHATICS: No significant lymphadenopathy is noted PSYCHIATRIC: Normal psychiatric evaluation. Limitations: physical limitation Course Vital Signs 02/28/22 13:58 Temperature 97.9 F Pulse Rate 66 Respiratory 16 Rate Blood Pressure 186/82 O2 Sat by Pulse 97 Oximetry Medical Decision Making - Medical Decision Making EKG shows sinus rhythm at 69 bpm HI interval is on a 70 QRS is under 25 Q-T intervals 423 QTC is 442. Patient's EKG shows no ST segment elevation or depression. I reviewed the CAT scan but radiology gave me report showed no acute abnormality. I gave the patient Zofran for the vomiting but continues so she received a scopolamine patch and Reglan. Patient also received 2 of Valium. Patient was feeling better her horizontal nystagmus stopped but she was unable to get out of bed and ambulate. Patient was unable to go home so I spoke with Dr. Alas she agreed to admit the patient admitted the patient wrote admitting orders. - Lab Data Result diagrams: 02/28/22 14:18 02/28/22 14:18 Lab Results 02/28/22 02/28/22 02/28/22 Range/Units 14:18 14:18 14:18 WBC 11.8 H (3.8-10.6) k/uL RBC 4.23 (3.80-5.40) m/uL Hgb 12.9 (11.4-16.0) gm/dL Hct 38.5 (34.0-46.0) % MCV 91.2 (80.0-100.0) fL MCH 30.6 (25.0-35.0) pg MCHC 33.5 (31.0-37.0) g/dL RDW 14.2 (11.5-15.5) % Plt Count 244 (150-450) k/uL MPV 7.7 Neutrophils % (Manual) 64 % Lymphocytes % (Manual) 25 % Monocytes % (Manual) 9 % Eosinophils % (Manual) 2 % Neutrophils # (Manual) 7.55 (1.3-7.7) k/uL Lymphocytes # (Manual) 2.95 (1.0-4.8) k/uL Monocytes # (Manual) 1.06 H (0-1.0) k/uL Eosinophils # (Manual) 0.24 (0-0.7) k/uL Nucleated RBCs 0 (0-0) /100 WBC Polychromasia Present PT 10.6 (9.0-12.0) sec INR 1.0 (<1.2) APTT 21.6 L (22.0-30.0) sec Sodium 141 (137-145) mmol/L Potassium 3.4 L (3.5-5.1) mmol/L Chloride 111 H (98-107) mmol/L Carbon Dioxide 21 L (22-30) mmol/L Anion Gap 9 mmol/L BUN 20 H (7-17) mg/dL Creatinine 1.30 H (0.52-1.04) mg/dL Est GFR (CKD-EPI)AfAm 44 (>60 ml/min/1.73 sqM) Est GFR (CKD-EPI)NonAf 38 (>60 ml/min/1.73 sqM) Glucose 122 H (74-99) mg/dL Calcium 8.7 (8.4-10.2) mg/dL Magnesium 1.5 L (1.6-2.3) mg/dL Total Bilirubin 0.6 (0.2-1.3) mg/dL AST 20 (14-36) U/L ALT 15 (4-34) U/L Alkaline Phosphatase 76 (38-126) U/L Troponin I (0.000-0.034) ng/mL Total Protein 6.5 (6.3-8.2) g/dL Albumin 3.6 (3.5-5.0) g/dL 02/28/22 Range/Units 14:18 WBC (3.8-10.6) k/uL RBC (3.80-5.40) m/uL Hgb (11.4-16.0) gm/dL Hct (34.0-46.0) % MCV (80.0-100.0) fL MCH (25.0-35.0) pg MCHC (31.0-37.0) g/dL RDW (11.5-15.5) % Plt Count (150-450) k/uL MPV Neutrophils % (Manual) % Lymphocytes % (Manual) % Monocytes % (Manual) % Eosinophils % (Manual) % Neutrophils # (Manual) (1.3-7.7) k/uL Lymphocytes # (Manual) (1.0-4.8) k/uL Monocytes # (Manual) (0-1.0) k/uL Eosinophils # (Manual) (0-0.7) k/uL Nucleated RBCs (0-0) /100 WBC Polychromasia PT (9.0-12.0) sec INR (<1.2) APTT (22.0-30.0) sec Sodium (137-145) mmol/L Potassium (3.5-5.1) mmol/L Chloride (98-107) mmol/L Carbon Dioxide (22-30) mmol/L Anion Gap mmol/L BUN (7-17) mg/dL Creatinine (0.52-1.04) mg/dL Est GFR (CKD-EPI)AfAm (>60 ml/min/1.73 sqM) Est GFR (CKD-EPI)NonAf (>60 ml/min/1.73 sqM) Glucose (74-99) mg/dL Calcium (8.4-10.2) mg/dL Magnesium (1.6-2.3) mg/dL Total Bilirubin (0.2-1.3) mg/dL AST (14-36) U/L ALT (4-34) U/L Alkaline Phosphatase (38-126) U/L Troponin I <0.012 (0.000-0.034) ng/mL Total Protein (6.3-8.2) g/dL Albumin (3.5-5.0) g/dL Disposition Clinical Impression: Vertigo, peripheral Disposition: ADMITTED IP TO THIS HOSP Referrals: Kathy Lemus MD [Primary Care Provider] - 1-2 days Time of Disposition: 16:54
--- NOTE | 2022-02-28 14:50 | XR ---
EXAMINATION TYPE: XR chest 2V DATE OF EXAM: 02/28/2022 COMPARISON: 03/26/2020 TECHNIQUE: PA and lateral views submitted. HISTORY: Dizziness and nausea FINDINGS: The lungs are clear and there is no pneumothorax, pleural effusion, or focal pneumonia. Heart is en larged and there is a diffuse interstitial pattern. Hypertrophic and degenerative changes of the spin e. IMPRESSION: 1. Correlate for chronic interstitial lung disease. Mild superimposed composed interstitial pneumonit is not excluded correlate clinically.
[2022-02-28 14:55] LABS: Eosinophils # (M) 0.24 k/uL (0-0.7); Lymphocytes # (M) 2.95 k/uL (1.0-4.8); Monocytes # (M) 1.06 k/uL (0-1.0); Neutrophils # (M) 7.55 k/uL (1.3-7.7); Neutrophils % (M) 64 %; Nucleated Red Blood Cells 0 /100 WBC (0-0); Polychromasia Present; Total Cells Counted 100
[2022-02-28] MEDS ORDERED: SCOPOLAMINE 1 MG/72 HR PATCH TRANSDERM STA (14:59)
--- NOTE | 2022-02-28 15:27 | CT ---
EXAMINATION TYPE: CT brain wo con DATE OF EXAM: 02/28/2022 COMPARISON: CT dated 04/06/2020 HISTORY: Ataxia. CT DLP: 1072.4 mGycm Automated exposure control for dose reduction was used. TECHNIQUE: CT scan of the brain is performed without IV contrast administration. FINDINGS: Stable prominent CSF along the right lateral aspect of the cerebellum. Brain volume loss changes, lik mike age-related. No acute intracranial hemorrhage. No gross acute cortical infarct. No midline shift, herniation or ventriculomegaly. Unremarkable davis-white matter differentiation, basal cisterns, sella and CP angles. No gross space-o ccupying lesion, vasogenic edema or mass effect. No gross orbital abnormality. Marked mucosal thickening of the left maxillary sinus. Clear mastoid ai r cells. Unremarkable calvarial bones. IMPRESSION: No acute intracranial abnormality or gross space-occupying lesion by this nonenhanced CT scan. Incide ntal findings as described above. Further MRI assessment can be considered if clinically required.
[2022-02-28] MEDS ORDERED: MAGNESIUM SULFATE-D5W PMX 1 GM in DEXTROSE/WATER 1 100ML.BAG IVPB ONE (15:32)
[2022-02-28] MEDS ORDERED: METOCLOPRAMIDE 5 MG/ML 2 ML VIAL IVP STA (15:55)
[2022-02-28] MEDS ORDERED: SODIUM CHLORIDE 0.9% 1,000 ML IV ONE (16:56)
[2022-02-28] MEDS ORDERED: METOCLOPRAMIDE 5 MG/ML 2 ML VIAL IVP PRN (16:57)
[2022-02-28] MEDS ORDERED: BENZOCAINE/MENTHOL LOZENG 1 EACH LOZENGE MUCOUS MEM PRN (17:01)
[2022-02-28] MEDS ORDERED: PROCHLORPERAZINE 5 MG TAB PO PRN (17:01)
[2022-02-28] MEDS ORDERED: NALOXONE 0.4 MG/ML 1 ML VIAL IV PRN (17:01)
[2022-02-28] MEDS ORDERED: ONDANSETRON 4 MG/2 ML VIAL IVP PRN (17:01)
--- NOTE | 2022-02-28 17:25 | P.HPIM ---
History of Present Illness H&P Date: 02/28/22 Chief Complaint: Dizziness and vertigo 82-year-old female with past medical history of hypertension on enalapril who presented to the ED today with sudden onset of dizziness and vertigo. She reports this has never happened in the past. She was walking on the stairs at the time it happened and it was followed by nausea and 2 episodes of vomiting. She reports her vomiting was nonprojectile, nonbloody. She denies headache, numbness, weakness, vision changes, shortness of breath, chest pain, palpitations, abdominal pain. She describes the sensation as everything spinni ng around her. She reports that she had cold symptoms associated with sore throat a few days ago for which she has been taking azithromycin. She reports that her left ear was "blocked" and that it is now "open." She denies any tinnitus. Denies runny nose, cough. Denies fever and chills. In the emergency department, she was treated with meclizine and scopolamine patch. She was also given Valium. She was not able to walk with a steady gait and therefore we were contacted to admit the patient for observation. Her labwork reveals very mild leukocytosis with WBC of 11.8, hypokalemia with potassium of 3.4 and hypomagnesemia. Her magnesium was replaced in the ED. Creatinine is 1.3 which is to be expected given her age. I do not have a UA available at this time. EKG does not show any arrhythmias or QT prolongation. No signs of acute ischemic changes on EKG. Brain CT negative for acute intracranial abnormality. Chest x-ray is essentially unremarkable. Review of Systems Eyes: denies blurred vision, denies discharge, denies pain, denies photophobia, denies loss of vision Ears: deny: earache, tinnitus Ears, nose, mouth and throat: Denies as per HPI, Denies ant. neck pain, Denies bleeding gums, Denies dental pain, Denies dysphagia, Denies epistaxis, Denies headache, Denies hoarseness, Denies mouth pain, Denies nasal congestion, Denies nasal discharge, Denies neck fullness/pressure, Denies neck lump, Denies nose pain, Denies odynophagia, Denies post-nasal drip, Denies sinus pain, Denies sinus pressure, Denies swelling in mouth, Denies swelling in throat, Denies sore throat, Denies vertigo, Denies voice changes Cardiovascular: Denies as per HPI, Denies chest pain, Denies claudication, Denies decreased exercise tolerance, Denies dyspnea on exertion, Denies edema, Denies high blood pressure, Denies irregular heart beat, Denies leg edema, Denies lightheadedness, Denies orthopnea, Denies palpitations, Denies paroxysmal nocturnal dyspnea, Denies phlebitis, Denies rapid heart beat, Denies shortness of breath, Denies syncope Respiratory: Denies as per HPI, Denies congestion, Denies cough, Denies cough with sputum, Denies dyspnea, Denies excessive sputum, Denies hemoptysis, Denies home oxygen, Denies pain, Denies pain on inspiration, Denies pleurisy, Denies respiratory infections, Denies sleep apnea, Denies snoring, Denies wheezing Gastrointestinal: Denies as per HPI, Denies abdominal pain, Denies belching, Denies bloating, Denies BRBPR, Denies change in bowel habits, Denies coffee ground emesis, Denies constipation, Denies diarrhea, Denies dyspepsia, Denies early satiety, Denies excessive gas, Denies heartburn, Denies hematemesis, Denies hematochezia, Denies indigestion, Denies jaundice, Denies lactose intolerance, Denies loss of appetite, Denies melena, Denies nausea, Denies vomiting Genitourinary: Denies as per HPI, Denies abnormal vaginal bleeding, Denies decreased libido, Denies difficulty conceiving, Denies difficulty voiding, Denies dysmenorrhea, Denies dyspareunia, Denies dysuria, Denies flank pain, Denies genital sores, Denies hematuria, Denies hot flashes, Denies incomplete emptying, Denies kidney stones, Denies menorrhagia, Denies mixed incontinence, Denies nocturia, Denies pelvic pain, Denies post void dribbling, Denies , Denies prolapse symptoms, Denies stress incontinence, Denies urge incontinence, Denies urgency, Denies urinary frequency, Denies vaginal discharge, Denies vaginal dryness, Denies vaginal itching, Denies vaginal odor Musculoskeletal: Denies as per HPI, Denies arm numbness/tingling, Denies at rophy, Denies fractures, Denies frequent falls, Denies gait dysfunction, Denies hot joints, Denies leg numbness/tingling, Denies limitation of motion, Denies loss of height, Denies low back pain, Denies morning stiffness, Denies muscle cramps, Denies muscle weakness, Denies myalgias, Denies neck pain, Denies neck stiffness, Denies prior amputations, Denies redness of joints, Denies shooting arm pain, Denies shooting leg pain Neurological: Reports balance difficulties, Reports weakness Psychiatric: Denies as per HPI, Denies anhedonia, Denies anxiety, Denies anxiety attacks, Denies change in appetite, Denies change in libido, Denies change in s leep habits, Denies confusion, Denies depression, Denies difficulty concentrating, Denies disorientation, Denies hallucinations, Denies hopelessness, Denies hypersomnia, Denies insomnia, Denies irritability, Denies memory loss, Denies mood swings, Denies paranoia, Denies sadness/tearfulness, Denies sleep disturbances, Denies suicidal ideation Past Medical History Past Medical History: Hypertension Additional Past Medical History / Comment(s): Diverticulitis History of Any Multi-Drug Resistant Organisms: None Reported Past Surgical History: Cholecystectomy, Hysterectomy Past Anesthesia/Blood Transfusion Reactions: No Reported Reaction Past Psychological History: No Psychological Hx Reported Smoking Status: Never smoker Past Alcohol Use History: None Reported Past Drug Use History: None Reported - Past Family History Father Family Medical History: Coronary Artery Disease (CAD), Hypertension Mother Family Medical History: No Reported History Medications and Allergies Home Medications Medication Instructions Recorded Confirmed Type ALPRAZolam [Xanax] 0.25 mg PO DAILY PRN 03/26/20 02/28/22 History Enalapril Maleate 10 mg PO DAILY 03/28/21 02/28/22 History Azithromycin See Taper PO DIRECTED 02/28/22 02/28/22 History Cholecalciferol [Vitamin D3 (125 375 mcg PO DAILY 02/28/22 02/28/22 History Mcg = 5000 Iu)] Sodium Bicarbonate Tab 650 mg PO DAILY 02/28/22 02/28/22 History Allergies Allergy/AdvReac Type Severity Reaction Status Date / Time Penicillins Allergy Rash/Hives Verified 02/28/22 15:58 Physical Exam Vitals: Vital Signs Temp Pulse Resp BP Pulse Ox 02/28/22 16:55 63 13 181/79 96 02/28/22 13:58 97.9 F 66 16 186/82 97 Intake and Output 02/28/22 02/28/22 02/28/22 06:59 14:59 22:59 Other: Weight 74.843 kg Constitutional: No acute distress, conversant, pleasant Eyes: Anicteric sclerae, moist conjunctiva, no lid-lag PERRLA HENMT: Normocephalic / Atraumatic oropharynx clear, no erythema, exudates Neck: Supple, full range of motion, nontender, no masses, or JVD no carotid bruits no thyromegaly no lymphadenopathy Lungs: Bilateral equal air entry with no wheezing or crackles. No use of accessory muscles. Cardiovascular: Heart regular in rate and rhythm, no murmur, no peripheral edema Abdominal: Soft, Nontender, no guarding, rebound or rigidity abdomen moving with respiration normoactive bowel sounds no hepatomegaly, No splenomegaly no palpable mass no abdominal wall hernia noted Skin: Normal temperature, tone, texture, turgor no induration no subcutaneous nodules no rash,lesions no ulcers Extremities: No digital cyanosis no clubbing pedal pulses intact and symmetrical radial pulses intact and symmetrical normal gait and station no calf tenderness Psychiatric: Alert and oriented to person, place and time appropriate affect intact judgement Neuro: Muscle Strength 5/5 in all 4 extremities sensation to light touch grossly present throughout cranial nerves II-XII grossly intact no focal sensory deficits Results CBC & Chem 7: 02/28/22 14:18 02/28/22 14:18 Labs: Abnormal Lab Results - Last 24 Hours (Table) 02/28/22 02/28/22 02/28/22 Range/Units 14:18 14:18 14:18 WBC 11.8 H (3.8-10.6) k/uL Monocytes # (Manual) 1.06 H (0-1.0) k/uL APTT 21.6 L (22.0-30.0) sec Potassium 3.4 L (3.5-5.1) mmol/L Chloride 111 H (98-107) mmol/L Carbon Dioxide 21 L (22-30) mmol/L BUN 20 H (7-17) mg/dL Creatinine 1.30 H (0.52-1.04) mg/dL Glucose 122 H (74-99) mg/dL Magnesium 1.5 L (1.6-2.3) mg/dL Chest x-ray: report reviewed CT Scan - head: report reviewed Thrombosis Risk Factor Assmnt - DVT/VTE Prophylaxis DVT/VTE Prophylaxis: Pharmacologic Prophylaxis ordered, Mechanical Prophylaxis ordered Assessment and Plan Assessment: 1. Dizziness and vertigo - Admit for observation - Most likely BPPV - We'll consult neurology to further guide management - Meclizine daily at bedtime - Fall precautions - Check orthostatics Qshift - Check a UA 2. Hypokalemia - Replace orally. Repeat BMP in the a.m. 3. Hypomagnesemia - Has been replaced. Check in a.m. 4. DVT prophylaxis Time with Patient: Greater than 30
[2022-02-28] MEDS: POTASSIUM CHLORIDE ER 20 MEQ TAB.ER PO STA ×2 (17:49→17:55)
[2022-02-28 18:59] LABS: Appearance,Urine Clear (Clear); Bilirubin,Urine Negative (Negative); Blood,Urine Small (Negative); Color,Urine Light Yellow; Glucose,Urine (UA) Negative (Negative); Ketones,Urine Negative (Negative); Leukocyte Esterase,Urine Negative (Negative); Mucus,Urine Rare /hpf; Nitrite,Urine Negative (Negative); PH, Urine 5.5 (5.0-8.0); Protein,Urine Trace (Negative); RBC,Urine 5 /hpf (0-5); Specific Gravity,Urine 1.009 (1.001-1.035); Squamous Epithelial Cell,Urine <1 /hpf (0-4); Urobilinogen,Urine <2.0 mg/dL (<2.0); WBC,Urine <1 /hpf (0-5)
[2022-02-28] MEDS: POTASSIUM CHLORIDE 10 MEQ in WATER FOR INJECTION 1 100ML.BAG IVPB SCH ×3 (21:15→23:22)
[2022-03-01] MEDS: POTASSIUM CHLORIDE 10 MEQ in WATER FOR INJECTION 1 100ML.BAG IVPB SCH (00:28)
[2022-03-01 03:15] LABS: ALT 14 U/L (4-34); AST 36 U/L (14-36); African American GFR (CKD) 48 (>60 ml/min/1.73 sqM); Albumin 3.3 g/dL (3.5-5.0); Albumin/Globulin Ratio 1.2; Alkaline Phosphatase 69 U/L (38-126); Anion Gap 5 mmol/L; Blood Urea Nitrogen 18 mg/dL (7-17); Calcium 8.8 mg/dL (8.4-10.2); Carbon Dioxide 27 mmol/L (22-30); Chloride 109 mmol/L (98-107); Globulin 2.7 g/dL; Glucose 106 mg/dL (74-99); Non-African American GFR(CKD) 42 (>60 ml/min/1.73 sqM); Potassium 4.7 mmol/L (3.5-5.1); Sodium 141 mmol/L (137-145); Total Bilirubin 0.6 mg/dL (0.2-1.3)
[2022-03-01 03:55] VITALS: RESP 17
[2022-03-01] MEDS ORDERED: SODIUM BICARBONATE TAB 650 MG TAB PO SCH (09:00)
[2022-03-01] MEDS ORDERED: lisinopriL 10 MG TAB PO SCH (09:00)
[2022-03-01] MEDS ORDERED: MECLIZINE 25 MG TAB PO SCH (09:00)
[2022-03-01] MEDS ORDERED: ENOXAPARIN 40 MG/0.4 ML SYRINGE SQ SCH (09:00)
[2022-03-01 09:24] LABS: Basophils # (A) 0.06 X 10*3/uL (0.00-0.10); Basophils % (A) 0.5 %; Eosinophils # (A) 0.16 X 10*3/uL (0.04-0.35); Eosinophils % (A) 1.2 %; HCT 38.6 % (37.2-46.3); Immature Grans, Automated 0.8 %; Lymphocytes # (A) 2.23 X 10*3/uL (0.90-5.00); Lymphocytes % (A) 16.9 %; MCH 28.8 pg (27.0-32.0); MCHC 31.1 g/dL (32.0-37.0); MCV 92.8 fL (80.0-97.0); Mean Platelet Volume 10.6 fL (9.5-12.2); Monocytes # (A) 1.08 X 10*3/uL (0.20-1.00); Monocytes % (A) 8.2 %; NRBC Per 100 WBC 0 /100 WBCS (0.0-0.0); Neutrophils # (A) 9.53 X 10*3/uL (1.80-7.70); Neutrophils % (A) 72.4 %; Platelet Count 235 X 10*3/uL (140-440); RBC 4.16 X 10*6/uL (4.10-5.20); RDW 13.6 % (11.5-14.5); WBC 13.17 X 10*3/uL (4.50-10.00)
[2022-03-01] MEDS ORDERED: MECLIZINE 25 MG TAB PO PRN (11:59)
--- NOTE | 2022-03-01 12:03 | P.CNNES ---
History of Present Illness Consult date: 03/01/22 Requesting physician: Kvng Carrion Reason for Consult: vertigo/dizziness with unsteady gait History of Present Illness: This is an 82-year-old woman with history of hypertension presented to the emergency department on the 02/28/2022 for dizziness. Patient stated that the in the last 1-2 weeks ago she had a cold and as a result yesterday she noticed while she was driving he felt dizzy and things were off to her when she was looking at them. She had a hard time describing it but she stated that things were just the felt dizzy. She also notes that she is having hearing loss over the right ear. Denies any ringing in the ear. She felt nauseous and was vomiting. Denies any difficulty getting her words out difficulty swallowing. Denies of any weakness. She denies of any headache. She noticed that her symptoms resolved 9 PM yesterday after being in the hospital. She stated that she was walk-in the okay today without any issues. She denies of any new neurological deficit. Some other workup in the hospital consisted of: Initial vital signs is a blood pressure of 186/82, heart rate of 66, respiratory of 16, temperature of 97.9. Oral and pulse ox 97% at room air. Initial white blood cells 11.8 the repeated 13.7 Initial creatinine is 1.30 and a repeat is 1.90, potassium is 3. 4 repeat is 4.7, calcium is 8.7, she'll magnesium is 1. 5 repeat his 2.0. AST and ALT is within normal limits Urinalysis is negative for urinary tract infection CT of the head is reported as no acute intracranial abnormality or gross space- occupying lesion by this nonenhanced computed tomography scan. Review of Systems Review of system: The 12 point system was reviewed and apparent positive and negative per HPI. Past Medical History Past Medical History: Hypertension Additional Past Medical History / Comment(s): Diverticulitis History of Any Multi-Drug Resistant Organisms: None Reported Past Surgical History: Cholecystectomy, Hysterectomy Past Anesthesia/Blood Transfusion Reactions: No Reported Reaction Past Psychological History: No Psychological Hx Reported Smoking Status: Never smoker Past Alcohol Use History: None Reported Past Drug Use History: None Reported - Past Family History Father Family Medical History: Coronary Artery Disease (CAD), Hypertension Mother Family Medical History: No Reported History Medications and Allergies Home Medications Medication Instructions Recorded Confirmed Type ALPRAZolam [Xanax] 0.25 mg PO DAILY PRN 03/26/20 02/28/22 History Enalapril Maleate 10 mg PO DAILY 03/28/21 02/28/22 History Cholecalciferol [Vitamin D3 (125 375 mcg PO DAILY 02/28/22 02/28/22 History Mcg = 5000 Iu)] Sodium Bicarbonate Tab 650 mg PO DAILY 02/28/22 02/28/22 History Meclizine [Antivert] 12.5 mg PO TID PRN #24 tab 03/01/22 Rx Allergies Allergy/AdvReac Type Severity Reaction Status Date / Time Penicillins Allergy Rash/Hives Verified 02/28/22 15:58 Physical Examination - Vital Signs Vital Signs: Vital Signs Temp Pulse Pulse Resp BP BP Pulse Ox 03/01/22 08:53 98 F 71 17 175/70 95 03/01/22 02:00 97.7 F 71 17 153/70 96 02/28/22 19:05 97.6 F 76 16 165/72 96 02/28/22 18:08 97.9 F 77 19 185/78 96 02/28/22 16:55 63 13 181/79 96 02/28/22 13:58 97.9 F 66 16 186/82 97 Intake and Output 02/28/22 03/01/22 03/01/22 22:59 06:59 14:59 Intake Total 315 Balance 315 Intake: Intake, IV Titration 75 Amount Sodium Chloride 0.9% 1, 75 000 ml @ 75 mls/hr IV . [id number] ONE Rx#:[id number] Oral 240 Other: Voiding Method Toilet Toilet # Voids 2 2 2 # Bowel Movements 1 Weight 74.843 kg GENERAL: The patient is lying in bed and is not in acute distress. CHEST: The heart rate is regular rate rhythm. No murmurs to auscultation. LUNG: Clear to auscultation bilaterally no wheezing noted throughout. Not labored breathing. ABDOMEN/GI: Bowel sounds present in all 4 quadrants. No tenderness to palpation throughout. NEUROLOGICAL: Higher mental function: The patient is awake, alert, oriented to self, place and time. Patient is following commands. No aphasia and no neglect. Cranial nerves: The pupils are round, equal and reactive to light and accommodation. Visual mccarthy are full to confrontation throughout. Extraocular movement is intact no nystagmus is noted. Facial sensation is normal to touch throughout. The facial strength is normal throughout. Hearing is severely decreased over the right compared to the left to hand rub. Tongue is midline and moved [id number] without any difficulty. No dysarthria is noted. Shoulder shrug is normal bilaterally. Motor: Gait is normal. The strength is 5 over 5 throughout. Normal tone and bulk. Cerebellum: Normal finger to nose heel to perrin bilaterally. Sensation: Sensation is normal to touch throughout. Reflexes (right/left): 1+ throughout.. Plantars are downgoing bilaterally. Results - Laboratory Findings CBC and BMP: 03/01/22 02:17 03/01/22 02:17 Abnormal Lab Findings: Abnormal Labs 02/28/22 02/28/22 02/28/22 14:18 14:18 14:18 WBC 11.8 H MCHC Immature Gran # Neutrophils # Monocytes # Monocytes # (Manual) 1.06 H APTT 21.6 L Potassium 3.4 L Chloride 111 H Carbon Dioxide 21 L BUN 20 H Creatinine 1.30 H Glucose 122 H Magnesium 1.5 L Total Protein Albumin Urine Protein Urine Blood Urine Mucus 02/28/22 03/01/22 03/01/22 17:07 02:17 02:17 WBC 13.17 H MCHC 31.1 L Immature Gran # 0.11 H Neutrophils # 9.53 H Monocytes # 1.08 H Monocytes # (Manual) APTT Potassium Chloride 109 H Carbon Dioxide BUN 18 H Creatinine 1.19 H Glucose 106 H Magnesium Total Protein 6.0 L Albumin 3.3 L Urine Protein Trace H Urine Blood Small H Urine Mucus Rare H Assessment and Plan Assessment: Acute vestibular labyrinthitis (has recent URI then developed vertigo and right hearing loss)---vertigo has improved. Recent upper respiratory tract infection Hypertension Plan: In the ED the patient was given the meclizine 25 mg once and was given Reglan 10 mg IV once. Currently she is on meclizine 25 mg daily at bedtime and I changed it to 12.5 mg 1 tablet 3 times a day when necessary. I recommend patient to follow-up with ENT as an outpatient if she continues to have dizziness and right hearing loss. And possibly consider further imaging of the brain if she continues to have symptoms such as MRI of the brain with and without. Physical therapy is on board We'll defer hypertension management to the primary team Defer the rest of the medical management to the primary team There is no additional workup needed at from a neurologic perspective at this time. Thank you for the consultation Darian Tejada M.D. Neuro-hospitalist Time with Patient: Greater than 30
--- NOTE | 2022-03-01 13:33 | P.DS ---
Providers Date of admission: 02/28/22 16:56 Expected date of discharge: 03/01/22 Attending physician: Jacinda Alas DO Consults: 02/28/22 17:04 Consult Physician Routine Consulting Provider: Darian Tejada Consult Reason/Comments: Vertigo/Dizziness with unsteady gait Do you want consulting provider notified?: Yes Primary care physician: Kathy [place] Hospital Course: Discharge Diagnosis: Acute Vestibular Labyrinthitis, hearing loss and vertigo completely resolved Hypokalemia, resolved Hypomagnesemia, resolved Hypertension, continue daily medication regimen. Hospital Course: patient is a very pleasant 82-year-old female with a past medical history of hypertension and diverticulitis. She presented to the emergency department on 02/28/22 with a chief complaint of dizziness and vertigo after battling a "head- cold" and ear infection for the last week. Patient reports this began yesterday afternoon after driving home from the grocery store. Patient reports initially she thought something was wrong with her car and it was acting funny so she drove home very slowly and once she was home she pulled into the garage and felt a sudden "pop" in her right ear and felt slightly off, she then attempted to get out of her car and realized she was extremely dizzy and felt as though everything around her was spinning so she sat back down immediately and called EMS and upon their arrival she became very nauseas which was soon after followed by one episode of emesis. Upon arrival to ER she was given meclazine and a scopalamine patch and reports shortly after had full resolution of dizziness and has not experienced any dizziness since 9 pm last night.the computed tomography scan of her head was done which was negative for acute intercranial process. EKG completed showing a sinus rhythm at 69 bpm with no noted T-wave or ST abnormalities. labs were positive for mild leukocytosis with WBC count of 11.8, mild hyponatremia with sodium of 3.4, hypomagnesemia with magnesium of 1.5 and mild elevation of renal function with BUN 20, creatinine 1.30, and GFR of 38. Patient was admitted under our services with consultation to neurology and monitored overnight. Pt states that her ear is also now "unblocked" and she has full hearing back. She further denies having any dizziness, lightheadedness, headache, changes in vision, tinnitus, chest pain, palpitations, shortness of breath, or experiencing any numbness/tingling/weakness in her extremities. patient was seen and fully evaluated by neurology recommending no further need for low neurological workup at this time. Patient is medically stable at this time and being discharged home.patient was discharged with prescription for meclizine to be used as needed for episodes of vertigo. Patient was instructed if the previously experienced pressure and/or loss of hearing returns accompanied by this vertigo she is strongly encouraged to follow up outpatient with the field research associate. Patient otherwise stable for discharge and to follow up with PCP. Vital signs reviewed and stable. General: Nontoxic, no distress and appears stated age. Derm: Skin warm and dry, normal coloration for ethnicity. Head: Atraumatic, normocephalic and symmetric. Eyes: EOMs intact, no lid lag, and anicteric sclera Mouth: no lip lesions, mucus membranes moist Cardiovascular: regular rate and rhythm with normal S1S2, systolic murmur, positive posterior tibial pulses bilaterally, and cap refill < 2 seconds. Lungs: Respirations even, regular, and unlabored on room air. Lungs CTA bilaterally, no rhonchi, no rales, no wheezing, and no accessory muscle usage. Abdominal: soft, nontender to palpation, no guarding, no appreciable organomegaly Ext: ROM intact. No gross muscle atrophy, no edema, no contractures Neuro: Speech clear, face symmetrical and CN II-XII grossly intact with no noted focal neuro deficits Psych: Alert and oriented to person, place, time, and situation. Appropriate and pleasant affect. A total of 39 minutes of time were spent preparing this complex discharge summary. Herminio Grimm NP rendered care for this patient independently, reviewed the findings and plan as documented in the note above. I did not physically speak with or examine the patient on this date. Patient Condition at Discharge: Stable Plan - Discharge Summary Discharge Rx Participant: Yes New Discharge Prescriptions: New Meclizine [Antivert] 12.5 mg PO TID PRN #24 tab PRN Reason: Vertigo Continue ALPRAZolam [Xanax] 0.25 mg PO DAILY PRN PRN Reason: Anxiety Enalapril Maleate 10 mg PO DAILY Sodium Bicarbonate Tab 650 mg PO DAILY Cholecalciferol [Vitamin D3 (125 Mcg = 5000 Iu)] 375 mcg PO DAILY Discontinued Azithromycin See Taper PO DIRECTED Discharge Medication List ALPRAZolam [Xanax] 0.25 mg PO DAILY PRN 03/26/20 [History] Enalapril Maleate 10 mg PO DAILY 03/28/21 [History] Cholecalciferol [Vitamin D3 (125 Mcg = 5000 Iu)] 375 mcg PO DAILY 02/28/22 [History] Sodium Bicarbonate Tab 650 mg PO DAILY 02/28/22 [History] Meclizine [Antivert] 12.5 mg PO TID PRN #24 tab 03/01/22 [Rx] Follow up Appointment(s)/Referral(s): Kathy Lemus MD [Primary Care Provider] - 1-2 days Patient Instructions/Handouts: Meniere Disease (DC), Vertigo (DC) Activity/Diet/Wound Care/Special Instructions: Activity: As tolerated. Take breaks as needed. Change positions slowly from lying to sitting and sitting to standing. If you feel dizzy stop what you are doing and sit and/or ly down and await Diet: Heart healthy and carb consistent diet. Avoid salts, or foods with hidden salts such as canned or boxed foods and frozen dinners. Extra salt makes your heart work harder and traps the fluid in your body for longer. Special Instructions: Take all of your medications as directed and remember to keep all of your doctor's appointments and follow-up as needed. If the previously experienced pressure and/or loss of hearing return, strongly encourage outpatient follow up with an Ear, Nose, and Throat (ENT) specialist. Thank you for allowing us to participate in your care, it was truly a pleasure having you for our patient!!! Discharge Disposition: HOME SELF-CARE
[2022-03-01 14:12] VITALS: BP 162/77; PULSE 85; TEMP 97.5
== END 2022-03-01 15:35 | disposition home or self-care (01) ==
LOC: EC 13:50 → 4SSUR 16:56
PROVIDERS: ADMIT Internal Medicine; ATTEND Internal Medicine
DX: H83.09 Labyrinthitis, unspecified ear (principal); E87.6 Hypokalemia; E83.42 Hypomagnesemia; I10 Essential (primary) hypertension; D72.829 Elevated white blood cell count, unspecified; E87.1 Hypo-osmolality and hyponatremia; R94.4 Abnormal results of kidney function studies; J02.9 Acute pharyngitis, unspecified; J06.9 Acute upper respiratory infection, unspecified; K57.92 Diverticulitis of intestine, part unspecified, without perforation or abscess without bleeding; Z90.710 Acquired absence of both cervix and uterus; Z90.49 Acquired absence of other specified parts of digestive tract; Z88.0 Allergy status to penicillin; Z79.899 Other long term (current) drug therapy; Z82.49 Family history of ischemic heart disease and other diseases of the circulatory system
CPT/HCPCS: 96366 ×2; 96372; 96365; 96375; 99285; 36415; 93005; 97161; 80053 ×2; 80048; 83735 ×2; 84132; 84484; 85025 ×2; 85610; 85730; 81001; 71046; 70450; G0378 ×2; J2765; J3360; J2405; J1650; J3475; J3480 ×2

== ENCOUNTER 2022-11-01 04:22 | Emergency (ER) | payer MEDICARE ==
[2022-11-01 04:34] LABS: Glucose,Whole Blood 131 mg/dL (70-110)
[2022-11-01] MEDS ORDERED: SODIUM CHLORIDE 0.9% 1,000 ML IV STA (04:35)
--- NOTE | 2022-11-01 04:36 | ED ---
Dizziness HPI - General Chief Complaint: Dizziness Stated Complaint: Dizziness Time Seen by Provider: 11/01/22 04:35 Source: patient, EMS, RN notes reviewed, old records reviewed Mode of arrival: EMS Limitations: no limitations - History of Present Illness Initial Comments: This is a 82-year-old female to the emergency department with for evaluation of dizziness nausea room spinning lightheadedness and dizziness legs feel like killing does not feel exactly protect today well. Patient is a mildly poor story based on age MD Complaint: dizziness, lightheadedness -: hour(s) Timing: sudden onset Description: sense of movement History of Same: No History of Trauma: No Severity: mild Improves With: nothing Worsens With: nothing Associated Symptoms: denies other symptoms - Related Data Home Medications Medication Instructions Recorded Confirmed ALPRAZolam [Xanax] 0.25 mg PO DAILY PRN 03/26/20 02/28/22 Enalapril Maleate 10 mg PO DAILY 03/28/21 02/28/22 Cholecalciferol [Vitamin D3 (125 375 mcg PO DAILY 02/28/22 02/28/22 Mcg = 5000 Iu)] Sodium Bicarbonate Tab 650 mg PO DAILY 02/28/22 02/28/22 Previous Rx's Medication Instructions Recorded Meclizine [Antivert] 12.5 mg PO TID PRN #24 tab 03/01/22 Allergies Allergy/AdvReac Type Severity Reaction Status Date / Time Penicillins Allergy Rash/Hives Verified 02/28/22 15:58 sulfamethoxazole Allergy Itching Verified 11/01/22 04:32 [From Bactrim] trimethoprim [From Bactrim] Allergy Itching Verified 11/01/22 04:32 Review of Systems ROS Statement: Those systems with pertinent positive or pertinent negative responses have been documented in the HPI. ROS Other: All systems not noted in ROS Statement are negative. Past Medical History Past Medical History: Hypertension Additional Past Medical History / Comment(s): Diverticulitis History of Any Multi-Drug Resistant Organisms: None Reported Past Surgical History: Cholecystectomy, Hysterectomy Past Anesthesia/Blood Transfusion Reactions: No Reported Reaction Past Psychological History: No Psychological Hx Reported Smoking Status: Never smoker Past Alcohol Use History: None Reported Past Drug Use History: None Reported - Past Family History Father Family Medical History: Coronary Artery Disease (CAD), Hypertension Mother Family Medical History: No Reported History General Exam Limitations: no limitations General appearance: alert, in no apparent distress, anxious Head exam: Present: atraumatic, normocephalic, normal inspection Eye exam: Present: normal appearance, PERRL, EOMI. Absent: scleral icterus, conjunctival injection, periorbital swelling ENT exam: Present: normal exam, mucous membranes moist Neck exam: Present: normal inspection. Absent: tenderness, meningismus, lymphadenopathy Respiratory exam: Present: normal lung sounds bilaterally. Absent: respiratory distress, wheezes, rales, rhonchi, stridor Cardiovascular Exam: Present: regular rate, normal rhythm, normal heart sounds. Absent: systolic murmur, diastolic murmur, rubs, gallop, clicks GI/Abdominal exam: Present: soft, normal bowel sounds. Absent: distended, tenderness, guarding, rebound, rigid Extremities exam: Present: normal inspection, full ROM, normal capillary refill. Absent: tenderness, pedal edema, joint swelling, calf tenderness Back exam: Present: normal inspection Neurological exam: Present: alert, oriented X3, CN II-XII intact Psychiatric exam: Present: normal affect, normal mood Skin exam: Present: warm, dry, intact, normal color. Absent: rash Course Vital Signs 11/01/22 11/01/22 11/01/22 04:23 05:00 06:00 Temperature 97.3 F L Pulse Rate 83 85 78 Respiratory 18 20 14 Rate Blood Pressure 201/98 155/85 172/81 O2 Sat by Pulse 98 96 97 Oximetry 11/01/22 11/01/22 07:00 07:10 Temperature 97.6 F Pulse Rate 78 96 Respiratory 22 18 Rate Blood Pressure 180/79 176/72 O2 Sat by Pulse 96 96 Oximetry - Reevaluation(s) Reevaluation #1: 10/31/22 Medical record is reviewed Patient symptoms improved here in the ER Patient informed of results and questions answered EKG Findings - EKG Comments: EKG Findings:: EKG interpreted by me sinus 83 CO 164 QRS 123 QTc 416 Medical Decision Making - Medical Decision Making 82 female to the emergency department for evaluation of vertigo. Patient has dizziness room spinning and history of vertigo. Patient feels improved here in the ER and can be discharged home - Lab Data Result diagrams: 11/01/22 04:52 11/01/22 04:52 Lab Results 11/01/22 11/01/22 11/01/22 Range/Units 04:32 04:52 04:52 WBC 10.0 (3.8-10.6) k/uL RBC 4.89 (3.80-5.40) m/uL Hgb 15.2 (11.4-16.0) gm/dL Hct 44.2 (34.0-46.0) % MCV 90.4 (80.0-100.0) fL MCH 31.0 (25.0-35.0) pg MCHC 34.3 (31.0-37.0) g/dL RDW 12.9 (11.5-15.5) % Plt Count 223 (150-450) k/uL MPV 8.3 Neutrophils % (Manual) 66 % Lymphocytes % (Manual) 26 % Monocytes % (Manual) 5 % Eosinophils % (Manual) 3 % Neutrophils # (Manual) 6.60 (1.3-7.7) k/uL Lymphocytes # (Manual) 2.60 (1.0-4.8) k/uL Monocytes # (Manual) 0.50 (0-1.0) k/uL Eosinophils # (Manual) 0.30 (0-0.7) k/uL Nucleated RBCs 0 (0-0) /100 WBC Manual Slide Review Performed PT 10.0 (9.0-12.0) sec INR 0.9 (<1.2) APTT 23.9 (22.0-30.0) sec Sodium (137-145) mmol/L Potassium (3.5-5.1) mmol/L Chloride (98-107) mmol/L Carbon Dioxide (22-30) mmol/L Anion Gap mmol/L BUN (7-17) mg/dL Creatinine (0.52-1.04) mg/dL Est GFR (CKD-EPI)AfAm (>60 ml/min/1.73 sqM) Est GFR (CKD-EPI)NonAf (>60 ml/min/1.73 sqM) Glucose (74-99) mg/dL POC Glucose (mg/dL) 131 H (70-110) mg/dL POC Glu Invas Tech ID Misha Donahue Calcium (8.4-10.2) mg/dL Phosphorus (2.5-4.5) mg/dL Magnesium (1.6-2.3) mg/dL Total Bilirubin (0.2-1.3) mg/dL AST (14-36) U/L ALT (4-34) U/L Alkaline Phosphatase (38-126) U/L Troponin I (0.000-0.034) ng/mL NT-Pro-B Natriuret Pep pg/mL Total Protein (6.3-8.2) g/dL Albumin (3.5-5.0) g/dL TSH (0.465-4.680) mIU/L Urine Color Urine Appearance (Clear) Urine pH (5.0-8.0) Ur Specific [place] (1.001-1.035) Urine Protein (Negative) Urine Glucose (UA) (Negative) Urine Ketones (Negative) Urine Blood (Negative) Urine Nitrite (Negative) Urine Bilirubin (Negative) Urine Urobilinogen (<2.0) mg/dL Ur Leukocyte Esterase (Negative) Urine RBC (0-5) /hpf Urine WBC (0-5) /hpf Ur Squamous Epith Cells (0-4) /hpf Urine Bacteria (None) /hpf Urine Mucus (None) /hpf 11/01/22 11/01/22 11/01/22 Range/Units 04:52 04:52 04:52 WBC (3.8-10.6) k/uL RBC (3.80-5.40) m/uL Hgb (11.4-16.0) gm/dL Hct (34.0-46.0) % MCV (80.0-100.0) fL MCH (25.0-35.0) pg MCHC (31.0-37.0) g/dL RDW (11.5-15.5) % Plt Count (150-450) k/uL MPV Neutrophils % (Manual) % Lymphocytes % (Manual) % Monocytes % (Manual) % Eosinophils % (Manual) % Neutrophils # (Manual) (1.3-7.7) k/uL Lymphocytes # (Manual) (1.0-4.8) k/uL Monocytes # (Manual) (0-1.0) k/uL Eosinophils # (Manual) (0-0.7) k/uL Nucleated RBCs (0-0) /100 WBC Manual Slide Review PT (9.0-12.0) sec INR (<1.2) APTT (22.0-30.0) sec Sodium 139 (137-145) mmol/L Potassium 4.4 (3.5-5.1) mmol/L Chloride 106 (98-107) mmol/L Carbon Dioxide 22 (22-30) mmol/L Anion Gap 11 mmol/L BUN 25 H (7-17) mg/dL Creatinine 1.26 H (0.52-1.04) mg/dL Est GFR (CKD-EPI)AfAm 45 (>60 ml/min/1.73 sqM) Est GFR (CKD-EPI)NonAf 39 (>60 ml/min/1.73 sqM) Glucose 124 H (74-99) mg/dL POC Glucose (mg/dL) (70-110) mg/dL POC Glu Invas Tech ID Calcium 9.3 (8.4-10.2) mg/dL Phosphorus 2.8 (2.5-4.5) mg/dL Magnesium 1.7 (1.6-2.3) mg/dL Total Bilirubin 0.5 (0.2-1.3) mg/dL AST 24 (14-36) U/L ALT 20 (4-34) U/L Alkaline Phosphatase 79 (38-126) U/L Troponin I <0.012 (0.000-0.034) ng/mL NT-Pro-B Natriuret Pep 167 pg/mL Total Protein 7.2 (6.3-8.2) g/dL Albumin 4.4 (3.5-5.0) g/dL TSH 1.710 (0.465-4.680) mIU/L Urine Color Urine Appearance (Clear) Urine pH (5.0-8.0) Ur Specific [place] (1.001-1.035) Urine Protein (Negative) Urine Glucose (UA) (Negative) Urine Ketones (Negative) Urine Blood (Negative) Urine Nitrite (Negative) Urine Bilirubin (Negative) Urine Urobilinogen (<2.0) mg/dL Ur Leukocyte Esterase (Negative) Urine RBC (0-5) /hpf Urine WBC (0-5) /hpf Ur Squamous Epith Cells (0-4) /hpf Urine Bacteria (None) /hpf Urine Mucus (None) /hpf 11/01/22 Range/Units 05:20 WBC (3.8-10.6) k/uL RBC (3.80-5.40) m/uL Hgb (11.4-16.0) gm/dL Hct (34.0-46.0) % MCV (80.0-100.0) fL MCH (25.0-35.0) pg MCHC (31.0-37.0) g/dL RDW (11.5-15.5) % Plt Count (150-450) k/uL MPV Neutrophils % (Manual) % Lymphocytes % (Manual) % Monocytes % (Manual) % Eosinophils % (Manual) % Neutrophils # (Manual) (1.3-7.7) k/uL Lymphocytes # (Manual) (1.0-4.8) k/uL Monocytes # (Manual) (0-1.0) k/uL Eosinophils # (Manual) (0-0.7) k/uL Nucleated RBCs (0-0) /100 WBC Manual Slide Review PT (9.0-12.0) sec INR (<1.2) APTT (22.0-30.0) sec Sodium (137-145) mmol/L Potassium (3.5-5.1) mmol/L Chloride (98-107) mmol/L Carbon Dioxide (22-30) mmol/L Anion Gap mmol/L BUN (7-17) mg/dL Creatinine (0.52-1.04) mg/dL Est GFR (CKD-EPI)AfAm (>60 ml/min/1.73 sqM) Est GFR (CKD-EPI)NonAf (>60 ml/min/1.73 sqM) Glucose (74-99) mg/dL POC Glucose (mg/dL) (70-110) mg/dL POC Glu Invas Tech ID Calcium (8.4-10.2) mg/dL Phosphorus (2.5-4.5) mg/dL Magnesium (1.6-2.3) mg/dL Total Bilirubin (0.2-1.3) mg/dL AST (14-36) U/L ALT (4-34) U/L Alkaline Phosphatase (38-126) U/L Troponin I (0.000-0.034) ng/mL NT-Pro-B Natriuret Pep pg/mL Total Protein (6.3-8.2) g/dL Albumin (3.5-5.0) g/dL TSH (0.465-4.680) mIU/L Urine Color Light Yellow Urine Appearance Cloudy H (Clear) Urine pH 5.5 (5.0-8.0) Ur Specific [place] 1.013 (1.001-1.035) Urine Protein 1+ H (Negative) Urine Glucose (UA) Negative (Negative) Urine Ketones Negative (Negative) Urine Blood Moderate H (Negative) Urine Nitrite Negative (Negative) Urine Bilirubin Negative (Negative) Urine Urobilinogen <2.0 (<2.0) mg/dL Ur Leukocyte Esterase Negative (Negative) Urine RBC 6 H (0-5) /hpf Urine WBC 1 (0-5) /hpf Ur Squamous Epith Cells 8 H (0-4) /hpf Urine Bacteria Moderate H (None) /hpf Urine Mucus Occasional H (None) /hpf - Radiology Data Radiology results: report reviewed (CT brain negative for acute disease), image reviewed Disposition Clinical Impression: Vertigo, peripheral Disposition: HOME SELF-CARE Condition: Good Instructions (If sedation given, give patient instructions): Dizziness (ED) Is patient prescribed a controlled substance at d/c from ED?: No Referrals: Kathy Lemus MD [Primary Care Provider] - 1-2 days Time of Disposition: 06:45
[2022-11-01 05:57] LABS: INR 0.9 (<1.2); Partial Thromboplastin Time 23.9 sec (22.0-30.0)
--- NOTE | 2022-11-01 06:02 | CT ---
EXAMINATION TYPE: CT brain wo con DATE OF EXAM: 11/01/2022 COMPARISON: 02/28/2022 HISTORY: dizzy since yesterday CT DLP: 1172.4 mGycm Automated exposure control for dose reduction was used. Images of the brain obtained with no contrast. There is cerebral cortical atrophy. There is no mass effect or midline shift. No sign of intracranial hemorrhage. Calvarium is intact. No evidence of cerebral edema. IMPRESSION: Cerebral atrophy. No acute intracranial abnormality. There is clearing of the left-sided maxillary si nusitis compared to old exam.
[2022-11-01 06:13] LABS: Albumin 4.4 g/dL (3.5-5.0); Calcium 9.3 mg/dL (8.4-10.2); Magnesium 1.7 mg/dL (1.6-2.3); Phosphorus 2.8 mg/dL (2.5-4.5); Potassium 4.4 mmol/L (3.5-5.1); Total Bilirubin 0.5 mg/dL (0.2-1.3); Total Protein 7.2 g/dL (6.3-8.2)
[2022-11-01 06:16] LABS: HCT 44.2 % (34.0-46.0); HGB 15.2 gm/dL (11.4-16.0); MCHC 34.3 g/dL (31.0-37.0); MCV 90.4 fL (80.0-100.0); Mean Platelet Volume 8.3; Platelet Count 223 k/uL (150-450); RBC 4.89 m/uL (3.80-5.40); RDW 12.9 % (11.5-15.5)
[2022-11-01 06:52] LABS: Appearance,Urine Cloudy (Clear); Bacteria,Urine Moderate /hpf; Bilirubin,Urine Negative (Negative); Blood,Urine Moderate (Negative); Color,Urine Light Yellow; Glucose,Urine (UA) Negative (Negative); Ketones,Urine Negative (Negative); Leukocyte Esterase,Urine Negative (Negative); Mucus,Urine Occasional /hpf; Nitrite,Urine Negative (Negative); PH, Urine 5.5 (5.0-8.0); Protein,Urine 1+ (Negative); RBC,Urine 6 /hpf (0-5); Specific Gravity,Urine 1.013 (1.001-1.035); Squamous Epithelial Cell,Urine 8 /hpf (0-4); Urobilinogen,Urine <2.0 mg/dL (<2.0); WBC,Urine 1 /hpf (0-5)
[2022-11-01 07:31] VITALS: BP 176/72; PULSE 96; RESP 18; TEMP 97.6
[2022-11-01 08:04] LABS: Neutrophils % (M) 66 %; Nucleated Red Blood Cells 0 /100 WBC (0-0); Total Cells Counted 100
== END 2022-11-01 07:31 | disposition home or self-care (01) ==
LOC: EC 04:22
DX: H81.399 Other peripheral vertigo, unspecified ear (principal); I10 Essential (primary) hypertension; Z88.0 Allergy status to penicillin; Z88.2 Allergy status to sulfonamides; Z79.899 Other long term (current) drug therapy
CPT/HCPCS: 36415; 70450; 80053; 81001; 83735; 83880; 84100; 84443; 84484; 85025; 85610; 85730; 93005; 96360; 96361; 99285

== ENCOUNTER 2023-02-06 09:42 | Day surgery (SDC) | payer MEDICARE ==
[~2023-02-06 09:42] MED LIST: DEXAMETHASONE SOD PHOSPHATE 4 MG/ML 1 ML VIAL IV ONE; DEXAMETHASONE SOD PHOSPHATE 4 MG/ML 1 ML VIAL IV PRN; FAMOTIDINE 20 MG/2 ML VIAL IV PRN; HYDROmorphone 0.5 MG/0.5 ML SYRINGE IVP PRN; LACTATED RINGERS 1,000 ML IV SCH; LIDOCAINE 1% (10MG/ML) FOR IV START INTRADERMA PRN; ONDANSETRON 4 MG/2 ML VIAL IVP ONE; ONDANSETRON 4 MG/2 ML VIAL IVP PRN; metroNIDAZOLE-NS PMX 500 MG in SALINE 1 100ML.BAG IVPB PRN
[2023-02-06] MEDS ORDERED: PROPOFOL 10 MG/ML 20 ML VIAL IV ONE (11:01)
[2023-02-06] MEDS ORDERED: GLYCOPYRROLATE 0.2 MG/ML 2 ML VIAL ONE (11:01)
[2023-02-06] MEDS ORDERED: LIDOCAINE 2% INJ 20 MG/ML (2 ML VIAL) ONE (11:01)
[2023-02-06] MEDS ORDERED: ePHEDrine 50 MG/ML 1 ML VIAL ONE (11:01)
[2023-02-06] MEDS ORDERED: ROCURONIUM 10 MG/ML (5 ML VIAL) IV ONE (11:01)
[2023-02-06] MEDS ORDERED: fentaNYL (PF) 50 MCG/ML 2 ML AMP ONE (11:01)
[2023-02-06] MEDS ORDERED: NEOSTIGMINE 1 MG/ML 10 ML VIAL ONE (11:01)
[2023-02-06] MEDS ORDERED: BUPIVACAIN-EPI 0.25%-1:200,000 30 ML VIAL SQ ONE (11:29)
[2023-02-06] MEDS ORDERED: LIDOCAINE 1%-EPI 1:100,000 20 ML VIAL SQ ONE (11:30)
[2023-02-06] MEDS ORDERED: BACITRACIN ZINC 500 UNIT/GM OINT 28.4 GM TUBE TOPICAL ONE (12:13)
[2023-02-06 12:49] VITALS: TEMP 97.2
--- NOTE | 2023-02-06 12:52 | P.OP ---
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 Wider resection recommended. Operative Findings: Frozen section margins were clear Description of Procedure: Patient was taken to the operative room and placed in the supine position. A general inhalation anesthetic was administered by the department of anesthesia with a functioning IV line in place. The patient was monitored throughout the entire case by the department of anesthesia. The face was sterilely prepped and draped in usual fashion and postauricularly was also prepped and draped. The lesion was marked and anesthetized with lidocaine 1% with epinephrine 1 100,000. A circular incision was made surrounding this cancer was sent for frozen section. Margins came back negative. We harvested the appropriate amount of skin postauricularly and close the donor site with 4-0 Monocryl and a 50 rapid Vicryl in a running nonlocking fashion. Excellent approximation was obtained. The skin was defatted and cut to size and placed as an overlay graft. A bolster dressing was applied and the patient tolerated this well. The defect was 2.1 x 2.1 cm. Patient will be seen in the office in 1 week for bolster dressing removal and patient is to contact me if any problems should arise.
[2023-02-06 13:42] VITALS: RESP 16
[2023-02-06 13:57] VITALS: BP 137/77; PULSE 82
== END 2023-02-06 14:21 | disposition home or self-care (01) ==
LOC: OR 09:42
PROVIDERS: ATTEND Otolaryngology
DX: C44.311 Basal cell carcinoma of skin of nose (principal); K21.9 Gastro-esophageal reflux disease without esophagitis; Z79.899 Other long term (current) drug therapy
CPT/HCPCS: 11643; 15260; 88305; 88331; 88332; J1100; J2710; J0690; J2405; J3010; J2704; J2001

== ENCOUNTER 2025-05-26 06:55 | Day surgery (SDC) | payer MEDICARE ==
[2025-05-25 09:04] VITALS: BMI 29.0
[~2025-05-26 06:55] MED LIST changes: -DEXAMETHASONE SOD PHOSPHATE 4 MG/ML 1 ML VIAL IV ONE; -DEXAMETHASONE SOD PHOSPHATE 4 MG/ML 1 ML VIAL IV PRN; -FAMOTIDINE 20 MG/2 ML VIAL IV PRN; -HYDROmorphone 0.5 MG/0.5 ML SYRINGE IVP PRN; -LACTATED RINGERS 1,000 ML IV SCH; -ONDANSETRON 4 MG/2 ML VIAL IVP ONE; -ONDANSETRON 4 MG/2 ML VIAL IVP PRN; -metroNIDAZOLE-NS PMX 500 MG in SALINE 1 100ML.BAG IVPB PRN
[2025-05-26] MEDS: IV FLUID CONTINUATION 1,000 ML IV ONE (07:35)
[2025-05-26] MEDS: LACTATED RINGERS 1,000 ML IV SCH (07:38)
[2025-05-26 07:46] VITALS: TEMP 97.5
[2025-05-26] MEDS ORDERED: PHENYLEPHRINE-0.9% NACL SYG 1,000 MCG/10 ML SYRINGE ONE (08:18)
[2025-05-26] MEDS ORDERED: PROPOFOL 10 MG/ML 20 ML VIAL IV ONE (08:18)
--- NOTE | 2025-05-26 08:52 | P.OP ---
Date of Procedure: 05/26/25 Preoperative Diagnosis: Cecal mass Postoperative Diagnosis: Cecal mass pathology pending Procedure(s) Performed: Colonoscopy Anesthesia: MAC Surgeon: Geovanni Livingston Pathology: other (Right colon, cecal mass) Condition: stable Disposition: PACU Description of Procedure: Patient was placed on the endoscopy table in the lateral position. She received IV sedation. Digital rectal exam was performed. This revealed no abnormalities. Flexible colonoscope was then placed patient anus and passed throughout the entire colon. Ileocecal valve was noted. At the cecum there was a friable mass. This was biopsied. It had the appearance of a colon cancer. Scope was withdrawn and in the near the hepatic flexure there is another irritation of the colon which was biopsied with a cold forcep. The remainder of the transverse colon, descending colon and sigmoid colon appeared normal. Scope was Ruback the rectum this appeared normal. Scope withdrawn the patient.
[2025-05-26 09:11] VITALS: BP 128/57; PULSE 80; RESP 16
--- NOTE | 2025-05-31 10:27 | P.GSHP ---
History of Present Illness H&P Date: 05/26/25 Chief Complaint: Possible colon mass This is an 85-year-old female who had some complaints of abdominal pain. Her rescan CAT scan suggestive of a cecal mass. Patient presents today for colonoscopy. Past Medical History Past Medical History: Cancer, Hypertension Additional Past Medical History / Comment(s): skin cancer, ulcer in esophagus, ?heart murmur History of Any Multi-Drug Resistant Organisms: None Reported Past Surgical History: Cholecystectomy, Hysterectomy Additional Past Surgical History / Comment(s): ulcer repair in esophagus Past Anesthesia/Blood Transfusion Reactions: No Reported Reaction Past Psychological History: Anxiety Smoking Status: Never smoker Past Alcohol Use History: None Reported Past Drug Use History: None Reported - Past Family History Father Family Medical History: Coronary Artery Disease (CAD), Hypertension Mother Family Medical History: No Reported History Medications and Allergies Home Medications Medication Instructions Recorded Confirmed Type ALPRAZolam [Xanax] 0.25 mg PO DAILY PRN 03/26/20 05/26/25 History Cholecalciferol [Vitamin D3 (25 25 mcg PO Q48H 05/25/25 05/26/25 History Mcg = 1000 Iu)] Enalapril [Vasotec] 10 mg PO DAILY 05/25/25 05/26/25 History Nystatin 100,000 Unit/gm Powd 1 applic TOPICAL TID #30 gm 05/26/25 Rx [Mycostatin Powder] Allergies Allergy/AdvReac Type Severity Reaction Status Date / Time Penicillins Allergy Rash/Hives Verified 05/26/25 07:41 sulfamethoxazole Allergy Itching Verified 05/26/25 07:41 [From Bactrim] trimethoprim [From Bactrim] Allergy Itching Verified 05/26/25 07:41 Surgical - Exam Vital Signs Temp Pulse Resp BP Pulse Ox 97.5 F L 100 16 174/80 97 05/26/25 07:35 05/26/25 07:35 05/26/25 07:35 05/26/25 07:35 05/26/25 07:35 - General well developed, well nourished, no distress - Eyes PERRL - ENT normal pinna - Neck no masses - Respiratory normal expansion - Cardiovascular Rhythm: regular - Abdomen Abdomen: soft, non tender Assessment and Plan Assessment: Possible cecal mass. Patient undergo colonoscopy.
== END 2025-05-26 09:40 | disposition home or self-care (01) ==
LOC: ORWHC2ENDO 06:55
PROVIDERS: ATTEND Surgery
DX: D12.0 Benign neoplasm of cecum (principal); D12.3 Benign neoplasm of transverse colon; I10 Essential (primary) hypertension; F41.9 Anxiety disorder, unspecified; Z79.899 Other long term (current) drug therapy; Z88.1 Allergy status to other antibiotic agents; Z88.0 Allergy status to penicillin
CPT/HCPCS: 88305; 45380; J2704; J2371; 45381

== ENCOUNTER → 2025-06-10 | Outpatient (CLI) | payer MEDICARE ==
[2025-06-10 15:23] LABS: Basophils # (A) 0.10 X 10*3/uL (0.00-0.10); Basophils % (A) 0.9 %; Eosinophils # (A) 0.13 X 10*3/uL (0.04-0.35); Eosinophils % (A) 1.1 %; HCT 37.5 % (37.2-46.3); HGB 11.8 g/dL (12.0-15.0); Immature Grans, Automated 1.20 %; Lymphocytes # (A) 2.05 X 10*3/uL (0.90-5.00); Lymphocytes % (A) 17.9 %; MCH 29.4 pg (27.0-32.0); MCHC 31.5 g/dL (32.0-37.0); MCV 93.3 FL (80.0-97.0); Monocytes # (A) 0.88 X 10*3/uL (0.20-1.00); Monocytes % (A) 7.7 %; NRBC Per 100 WBC 0 X 10*3/uL (0.00-0.01); Neutrophils # (A) 8.16 X 10*3/uL (1.80-7.70); Neutrophils % (A) 71.2 %; Platelet Count 304 X 10*3/uL (140-440); RBC 4.02 X 10*6/uL (4.10-5.20); RDW 14.5 % (11.5-14.5); WBC 11.46 X 10*3/uL (4.50-10.00)
[2025-06-10 15:46] LABS: Anion Gap 12.2 mmol/L (4.00-12.00); Carbon Dioxide 20.8 mmol/L (21.6-31.8); Chloride 104.0 mmol/L (96-109); Potassium 5.0 mmol/L (3.5-5.5); Sodium 137.0 mmol/L (135-145)
== END | disposition home or self-care (01) ==
LOC: LABWHC1 07:53
PROVIDERS: ATTEND Surgery
DX: Z01.818 Encounter for other preprocedural examination (principal); I10 Essential (primary) hypertension; K63.89 Other specified diseases of intestine; Z79.899 Other long term (current) drug therapy
CPT/HCPCS: 36415; 80051; 85025; 86850; 86900; 86901; 93005